=== PATIENT | female | born 1945 | race Caucasian/White ===

== ENCOUNTER 2018-11-28 23:16 | Inpatient (IN) | payer MEDICARE, BC ==
[~2018-11-28] VITALS: Ht 160 cm; Wt 74.0 kg
[~2018-11-28 23:16] MED LIST: AZIT1PAC PO; ROPI1TAB PO; TRAZ150T49 PO
[2018-11-28 23:42] LABS: BASO # 0.1 x10^3/uL (0.0-0.2); BASO % 1 % (0-3); EOS # 0.4 x10^3/uL (0.0-0.7); EOS % 3 % (0-3); HEMATOCRIT 46.8 % (36.0-47.0); HEMOGLOBIN 15.1 g/dL (12.0-15.5); LYMPH # 3.6 x10^3/uL (1.0-4.8); LYMPH % 32 % (24-48); MEAN CORPUSCULAR HEMOGLOBIN 27 pg (25-35); MEAN CORPUSCULAR HGB CONC 32 g/dL (31-37); MEAN CORPUSCULAR VOLUME 83 fL (79-100); MONO # 0.9 x10^3/uL (0.0-1.1); MONO % 8 % (0-9); NEUT # 6.1 x10^3uL (1.8-7.7); NEUT % 55 % (31-73); PLATELET COUNT 267 x10^3/uL (140-400); RED BLOOD COUNT 5.62 x10^6/uL (3.50-5.40); RED CELL DISTRIBUTION WIDTH 16.3 % (11.5-14.5)
[2018-11-28] MEDS ORDERED: NITROGLYCERIN SUBLINGUAL 0.4 MG BOTTLE OF 25. SL PRN (23:45)
[2018-11-28 23:51] LABS: CALCIUM 9.6 mg/dL (8.5-10.1); CREATININE 0.8 mg/dL (0.6-1.0); GFR 70.7; POTASSIUM 3.1 mmol/L (3.5-5.1)
[2018-11-28 23:57] LABS: ALBUMIN 3.3 g/dL (3.4-5.0); ALBUMIN/GLOBULIN RATIO 0.8 (1.0-1.7); MAGNESIUM 1.8 mg/dL (1.8-2.4); TOTAL BILIRUBIN 0.3 mg/dL (0.2-1.0); TOTAL PROTEIN 7.4 g/dL (6.4-8.2)
[2018-11-29] VITALS (20 sets, daily range): BP systolic 116–193; BP diastolic 75–118
[2018-11-29] MEDS ORDERED: ASPIRIN CHEWABLE 81 MG TABLET. PO ONE
[2018-11-29] MEDS ORDERED: ONDANSETRON PF 4 MG/2 ML VIAL. IV ONE
--- NOTE | 2018-11-29 00:47 | PHYS DOC ---
Past Medical History Past Medical History: Asthma, Bronchitis, COPD, Diabetes-Type II, GERD, High Cholesterol, Hypertension, OR, Pneumonia Additional Past Medical Histor: 6 CARDIAC STENTS Past Surgical History: Hysterectomy, Knee Replacement Additional Past Surgical Histo: RIGHT KNEE REPLACED, LEFT SHOULDER KAYA, LEFT ROTATOR CUFF Additional Information: 1.5 PPD Alcohol Use: None Drug Use: None Adult General Chief Complaint Chief Complaint: CHEST PAIN HPI HPI Patient is a 73-year-old female who presents with 2 day history of left-sided chest pain. Patient states that at times it radiates to her left shoulder. She describes pain as a lot of pressure and tightness. She rates pain at a 9 out of 10 currently. She states that she has been nauseated but has not vomited. She denies any diaphoresis. Patient states the pain is worsened with exertion. She states that onset of pain was at rest. Patient does have significant cardiac history with history of 5 stents. Review of Systems Review of Systems Constitutional: Denies fever or chills [] Respiratory: Denies cough or shortness of breath [] Cardiovascular: No additional information not addressed in HPI [] GI: Denies abdominal pain. Positive nausea with no vomiting. [] Neurologic: Denies headache, focal weakness or sensory changes [] All other systems were reviewed and found to be within normal limits, except as documented in this note. Current Medications Current Medications Current Medications Medications (Trade) Dose Ordered Sig/Anna Start Time Stop Time Status Last Admin Dose Admin Aspirin (Children'S Aspirin) 324 mg 1X ONCE 11/29/18 00:00 11/29/18 00:01 DC 11/28/18 23:46 324 MG Morphine Sulfate (Morphine Sulfate) 2 mg 1X ONCE 11/29/18 00:45 11/29/18 00:46 UNV Nitroglycerin (Nitrostat) 0.4 mg PRN Q5MIN PRN 11/28/18 23:45 11/29/18 23:44 11/28/18 23:47 0.4 MG Ondansetron HCl (Zofran) 4 mg 1X ONCE 11/29/18 00:00 11/29/18 00:01 DC 11/28/18 23:47 4 MG Potassium Chloride (Klor-Con) 40 meq 1X ONCE 11/29/18 01:00 11/29/18 01:01 11/29/18 00:25 40 MEQ Sodium Chloride 1,000 ml @ 100 mls/hr Q10H 11/29/18 00:00 11/29/18 09:59 11/28/18 23:48 100 MLS/HR Allergies Allergies Allergies Coded Allergies Type Severity Reaction Last Updated Verified amlodipine Allergy Unknown Swelling 10/16/17 Yes ezetimibe Allergy Unknown 10/16/17 Yes Lqryntt-Lkd-Uvd Reductase Inhibitor Adverse Reaction Intermediate CRAMPS Yes Physical Exam Physical Exam Constitutional: Well developed, well nourished, no acute distress, non-toxic appearance. [] HENT: Normocephalic, atraumatic, bilateral external ears normal, oropharynx moist, no oral exudates, nose normal. [] Eyes: PERRLA, EOMI, conjunctiva normal, no discharge. [] Neck: Normal range of motion, no tenderness, supple, no stridor. [] Cardiovascular:Heart rate regular rhythm, no murmur [] Lungs & Thorax: Bilateral breath sounds clear to auscultation [] Abdomen: Bowel sounds normal, soft, no tenderness. [] Skin: Warm, dry, no erythema, no rash. [] Extremities: No tenderness, no cyanosis, no clubbing, ROM intact, no edema. [] Neurologic: Alert and oriented X 3, no focal deficits noted. [] Current Patient Data Vital Signs Vital Signs Date Time Temp Pulse Resp B/P (MAP) Pulse Ox O2 Delivery O2 Flow Rate FiO2 11/28/18 23:48 23 95 Room Air 11/28/18 23:47 85 205/117 11/28/18 23:24 98.1 98.1 Lab Values Laboratory Tests Test 11/28/18 23:35 White Blood Count 11.0 x10^3/uL (4.0-11.0) Red Blood Count 5.62 x10^6/uL (3.50-5.40) H Hemoglobin 15.1 g/dL (12.0-15.5) Hematocrit 46.8 % (36.0-47.0) Mean Corpuscular Volume 83 fL (79-100) Mean Corpuscular Hemoglobin 27 pg (25-35) Mean Corpuscular Hemoglobin Concent 32 g/dL (31-37) Red Cell Distribution Width 16.3 % (11.5-14.5) H Platelet Count 267 x10^3/uL (140-400) Neutrophils (%) (Auto) 55 % (31-73) Lymphocytes (%) (Auto) 32 % (24-48) Monocytes (%) (Auto) 8 % (0-9) Eosinophils (%) (Auto) 3 % (0-3) Basophils (%) (Auto) 1 % (0-3) Neutrophils # (Auto) 6.1 x10^3uL (1.8-7.7) Lymphocytes # (Auto) 3.6 x10^3/uL (1.0-4.8) Monocytes # (Auto) 0.9 x10^3/uL (0.0-1.1) Eosinophils # (Auto) 0.4 x10^3/uL (0.0-0.7) Basophils # (Auto) 0.1 x10^3/uL (0.0-0.2) Sodium Level 141 mmol/L (136-145) Potassium Level 3.1 mmol/L (3.5-5.1) L Chloride Level 100 mmol/L (98-107) Carbon Dioxide Level 37 mmol/L (21-32) H Anion Gap 4 (6-14) L Blood Urea Nitrogen 14 mg/dL (7-20) Creatinine 0.8 mg/dL (0.6-1.0) Estimated GFR (Cockcroft-Gault) 70.7 BUN/Creatinine Ratio 18 (6-20) Glucose Level 111 mg/dL (70-99) H Calcium Level 9.6 mg/dL (8.5-10.1) Magnesium Level 1.8 mg/dL (1.8-2.4) Total Bilirubin 0.3 mg/dL (0.2-1.0) Aspartate Amino Transferase (AST) 13 U/L (15-37) L Alanine Aminotransferase (ALT) 16 U/L (14-59) Alkaline Phosphatase 101 U/L (46-116) Troponin I Quantitative 0.088 ng/mL (0.000-0.055) Total Protein 7.4 g/dL (6.4-8.2) Albumin 3.3 g/dL (3.4-5.0) L Albumin/Globulin Ratio 0.8 (1.0-1.7) L Laboratory Tests 11/28/18 23:35 Laboratory Tests 11/28/18 23:35 EKG EKG [] Interpretation Time: EKG demonstrates sinus rhythm with rate of 81. There are PVCs. There is some ST depression in leads V3 through V5. Radiology/Procedures Radiology/Procedures [] Impressions: Chest x-ray demonstrates no acute process. Course & Med Decision Making Course & Med Decision Making Pertinent Labs and Imaging studies reviewed. (See chart for details) [] Dragon Disclaimer Dragon Disclaimer This electronic medical record was generated, in whole or in part, using a voice recognition dictation system. Departure Departure Impression: Primary Impression: Non-STEMI (non-ST elevated myocardial infarction) Disposition: ADMITTED INPATIENT Admitting Physician: Chandana Madden Condition: IMPROVED Referrals: HAROON ERNANDEZ MD (PCP) LOY MARTINEZ Jr. DO Nov 29, 2018 00:47
[2018-11-29] MEDS ORDERED: CYCL5TAB PO (00:50)
[2018-11-29] MEDS ORDERED: POTASSIUM CHLORIDE 20 MEQ TABLET.ER. PO ONE (01:00)
[2018-11-29] MEDS: IV NORMAL SALINE 1000ML BAG 1,000 ML IV SCH ×2 (01:00→12:23)
[2018-11-29] MEDS ORDERED: MORPHINE SULFATE 2 MG/ML VIAL. IV ONE ×2 (01:00)
[2018-11-29] MEDS ORDERED: ONDANSETRON PF 4 MG/2 ML VIAL. IV PRN (01:00)
[2018-11-29] MEDS: HEPARIN 25,000UTS/500ML PREMIX 500 ML IV PRN ×3 (01:21→20:31)
[2018-11-29] MEDS ORDERED: HEPARIN for IV BOLUS 10,000 UNIT/10 ML VIAL. IV ONE (01:30)
[2018-11-29] MEDS ORDERED: cloNIDine HCL 0.1 MG TABLET PO ONE (01:30)
[2018-11-29] MEDS: MORPHINE SULFATE 2 MG/ML VIAL. IV PRN ×3 (02:28→23:01)
--- NOTE | 2018-11-29 02:30 | NUR ---
Patient admitted from ED with complaints of chest pain. Pt was noted to have NSTEMI. SR with occasional PVC. Heparin gtt 12u/kg/hr=17ml/hr. On admission troponin 0.088 K= 3.1 replaced with 40meq K+ in ED. Upon arrival pt complained of midsternal chest pain that was relieved with 2mg IV morphine. RN will continue to monitor
--- NOTE | 2018-11-29 05:09 | EKG ---
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
--- NOTE | 2018-11-29 07:57 | PDOC1 ---
History and Physical Date of Admission Date of Admission DATE: 11/29/18 TIME: 07:54 Identification/Chief Complaint Chief Complaint Chest pain Source Source: Patient History of Present Illness History of Present Illness Patient is a 73-year-old female w/PMHx smoker (quit), Coronary artery disease, status post multiple stents, most recently approximately 4 years ago, Hypertension, Diabetes, Dyslipidemia who presents with 2 day history of left- sided chest pain. Patient states that at times it radiates to her left shoulder. She describes pain as a lot of pressure and tightness. She rates pain at a 9 out of 10 currently. She states that she has been nauseated but has not vomited. She denies any diaphoresis. Patient states the pain is worsened with exertion. She states that onset of pain was at rest. Patient does have significant cardiac history with history of 5 stents. Troponin elevated from 0.08 to 11 overnight. She did start smoking again after quitting with chantix and has not been taking ASA or plavix Past Medical History Cardiovascular: CAD, HTN Pulmonary: No pertinent hx GI: No pertinent hx Heme/Onc: No pertinent hx Hepatobiliary: No pertinent hx Psych: No pertinent hx Rheumatologic: No pertinent hx Infectious disease: No pertinent hx ENT: No pertinent hx Renal/: No pertinent hx Endocrine: Diabetes Past Surgical History Past Surgical History: Other (Arthroscopy (RTC repair), Total knee replacement (right), Other (PCI/stents)) Family History Family History: Coronary Artery Disease, Diabetes, High Cholestrol, Hypertension Social History Smoke: 1 pack per day ALCOHOL: none Drugs: None Current Problem List Problem List Problems Medical Problems: (1) Non-STEMI (non-ST elevated myocardial infarction) Status: Acute Current Medications Current Medications Current Medications Aspirin (Children'S Aspirin) 324 mg 1X ONCE PO Last administered on 11/28/18at 23:46; Start 11/29/18 at 00:00; Stop 11/29/18 at 00:01; Status DC Nitroglycerin (Nitrostat) 0.4 mg PRN Q5MIN PRN SL CP RATING > 1/10 Last administered on 11/28/18at 23:47; Start 11/28/18 at 23:45; Stop 11/29/18 at 23:44 Morphine Sulfate (Morphine Sulfate) 2 mg 1X ONCE IV Last administered on at 23:48; Start 11/29/18 at 00:00; Stop 11/29/18 at 00:01; Status DC Sodium Chloride 1,000 ml @ 100 mls/hr Q10H IV Last administered on 11/28/18at 23:48; Start 11/29/18 at 00:00; Stop 11/29/18 at 09:59 Ondansetron HCl (Zofran) 4 mg 1X ONCE IV Last administered on 11/28/18at 23:47 ; Start 11/29/18 at 00:00; Stop 11/29/18 at 00:01; Status DC Potassium Chloride (Klor-Con) 40 meq 1X ONCE PO Last administered on at 00:25; Start 11/29/18 at 01:00; Stop 11/29/18 at 01:01; Status DC Morphine Sulfate (Morphine Sulfate) 2 mg 1X ONCE IV Last administered on at 01:17; Start 11/29/18 at 01:00; Stop 11/29/18 at 01:01; Status DC Ondansetron HCl (Zofran) 4 mg PRN Q8HRS PRN IV NAUSEA/VOMITING 1ST CHOICE; Start 11/29/18 at 01:00; Stop 11/30/18 at 00:59 Morphine Sulfate (Morphine Sulfate) 2 mg PRN Q2HR PRN IV SEVERE PAIN Last administered on 11/29/18at 07:11; Start 11/29/18 at 01:00; Stop 11/30/18 at 00:59 Sodium Chloride 1,000 ml @ 125 mls/hr Q8H IV ; Start 11/29/18 at 01:00; Stop at 00:59 Clonidine HCl (Catapres) 0.2 mg 1X ONCE PO Last administered on 11/29/18at 01: 18; Start 11/29/18 at 01:30; Stop 11/29/18 at 01:31; Status DC Heparin Sodium (Porcine) (Heparin Sodium) 4,000 unit 1X ONCE IV Last administered on 11/29/18at 01:20; Start 11/29/18 at 01:30; Stop 11/29/18 at 01:31 ; Status DC Heparin Sodium/ Dextrose 500 ml @ 0 mls/hr CONT PRN IV SEE I/O RECORD Last administered on 11/29/18at 01:21; Start 11/29/18 at 01:00 Heparin Sodium (Porcine) (Heparin Sodium) 1,800 unit PRN Q6HRS PRN IV FOR UFH LEVEL LESS THAN 0.2; Start 11/29/18 at 01:00 Active Scripts Active Reported Cyclobenzaprine Hcl 5 Mg Tablet 5 Mg PO TID Trazodone Hcl 150 Mg Tablet 1 Tab PO QHS Requip (Ropinirole Hcl) 1 Mg Tablet 1 Tab PO QHS Allergies Allergies: Coded Allergies: amlodipine (Verified Allergy, Severe, Swelling, 11/29/18) ezetimibe (Verified Allergy, Intermediate, 11/29/18) MYALGIA Wmwrbzp-Bgr-Juj Reductase Inhibitor (Verified Adverse Reaction, Intermediate, CRAMPS, 10/16/17) ROS General: YES: Fatigue, Malaise; No: Chills, Night Sweats, Appetite, Other PSYCHOLOGICAL ROS: No: Anxiety, Behavioral Disorder, Concentration difficultie , Decreased libido, Depression, Disorientation, Hallucinations, Hostility, Irritablity, Memory difficulties, Mood Swings, Obsessive thoughts, Physical abuse, Sexual abuse, Sleep disturbances, Suicidal ideation, Other Eyes: No Blurry vision, No Decreased vision, No Double vision, No Dry eyes, No Excessive tearing, No Eye Pain, No Itchy Eyes, No Loss of vision, No Photophobia , No Scotomata, No Uses contacts, No Uses glasses, No Other HEENT: No: Heacaches, Visual Changes, Hearing change, Nasal congestion, Nasal discharge, Oral lesions, Sinus pain, Sore Throat, Epistaxis, Sneezing, Snoring, Tinnitus, Vertigo, Vocal changes, Other ALLERGY AND IMMUNOLOGY: No: Hives, Insect Bite Sensitivity, Itchy/Watery Eyes, Nasal Congestion, Post Nasal Drip, Seasonal Allergies, Other Hematological and Lymphatic: No: Bleeding Problems, Blood Clots, Blood Transfusions, Brusing, Night Sweats, Pallor, Swollen Lymph Nodes, Other ENDOCRINE: No: Breast Changes, Galactorrhea, Hair Pattern Changes, Hot Flashes , Malaise/lethargy, Mood Swings, Palpitations, Polydipsia/polyuria, Skin Changes , Temperature Intolerance, Unexpected Weight Changes, Other Breast: No New/Changing Breast Lumps, No Nipple changes, No Nipple discharge, No Other Respiratory: YES: Shortness of breath, SOB with excertion, Wheezing; No: Cough, Hemoptysis, Orthopnea, Pleuritic Pain, Sputum Changes, Stridor, Tachypnea, Other Cardiovascular: yes Chest Pain, yes Palpitations; No Orthopnea, No Paroxysmal Noc. Dyspnea, No Edema, No Lt Headedness, No Other Gastrointestinal: Yes Nausea; No Vomiting, No Abdominal Pain, No Diarrhea, No Constipation, No Melena, No Hematochezia, No Other Genitourinary: No Dysuria, No Frequency, No Incontinence, No Hematuria, No Retention, No Discharge, No Urgency, No Pain, No Flank Pain, No Other, No , No , No , No , No , No , No Musculoskeletal: No Gait Disturbance, No Joint Pain, No Joint Stiffness, No Joint Swelling, No Muscle Pain, No Muscular Weakness, No Pain In:, No Swelling In:, No Other Neurological: No Behavorial Changes, No Bowel/Bladder ControlChng, No Confusion , No Dizziness, No Gait Disturbance, No Headaches, No Impaired Coord/balance, No Memory Loss, No Numbness/Tingling, No Seizures, No Speech Problems, No Tremors, No Visual Changes, No Weakness, No Other Skin: No Dry Skin, No Eczema, No Hair Changes, No Lumps, No Mole Changes, No Mottling, No Nail Changes, No Pruritus, No Rash, No Skin Lesion Changes, No Other, No Acne Physical Exam General: Alert, Oriented X3, Cooperative, No acute distress HEENT: Atraumatic, PERRLA, EOMI, Mucous membr. moist/pink Lungs: Clear to auscultation, Normal air movement Heart: S1S2, RRR, no gallops, no murmurs Abdomen: Normal bowel sounds, Soft, No tenderness, No hepatosplenomegaly, No masses Extremities: No clubbing, No cyanosis, No edema, Normal pulses, No tenderness/ swelling Skin: No rashes, No breakdown, No significant lesion Neuro: Normal gait, Normal speech, Strength at 5/5 X4 ext, Normal tone, Sensation intact, Cranial nerves 3-12 NL, Reflexes 2+ Psych/Mental Status: Mental status NL, Mood NL Vitals Vitals Vital Signs Date Time Temp Pulse Resp B/P (MAP) Pulse Ox O2 Delivery O2 Flow Rate FiO2 11/29/18 07:49 97.4 64 17 142/91 (108) 96 Nasal Cannula 2.0 97.4 Labs Labs Laboratory Tests Test 11/28/18 23:35 11/29/18 03:45 11/29/18 06:50 White Blood Count 11.0 x10^3/uL (4.0-11.0) Red Blood Count 5.62 x10^6/uL (3.50-5.40) Hemoglobin 15.1 g/dL (12.0-15.5) Hematocrit 46.8 % (36.0-47.0) Mean Corpuscular Volume 83 fL (79-100) Mean Corpuscular Hemoglobin 27 pg (25-35) Mean Corpuscular Hemoglobin Concent 32 g/dL (31-37) Red Cell Distribution Width 16.3 % (11.5-14.5) Platelet Count 267 x10^3/uL (140-400) Neutrophils (%) (Auto) 55 % (31-73) Lymphocytes (%) (Auto) 32 % (24-48) Monocytes (%) (Auto) 8 % (0-9) Eosinophils (%) (Auto) 3 % (0-3) Basophils (%) (Auto) 1 % (0-3) Neutrophils # (Auto) 6.1 x10^3uL (1.8-7.7) Lymphocytes # (Auto) 3.6 x10^3/uL (1.0-4.8) Monocytes # (Auto) 0.9 x10^3/uL (0.0-1.1) Eosinophils # (Auto) 0.4 x10^3/uL (0.0-0.7) Basophils # (Auto) 0.1 x10^3/uL (0.0-0.2) D-Dimer (Mar[place]ell) 0.76 ug/mlFEU (0.00-0.50) Sodium Level 141 mmol/L (136-145) Potassium Level 3.1 mmol/L (3.5-5.1) Chloride Level 100 mmol/L (98-107) Carbon Dioxide Level 37 mmol/L (21-32) Anion Gap 4 (6-14) Blood Urea Nitrogen 14 mg/dL (7-20) Creatinine 0.8 mg/dL (0.6-1.0) Estimated GFR (Cockcroft-Gault) 70.7 BUN/Creatinine Ratio 18 (6-20) Glucose Level 111 mg/dL (70-99) Calcium Level 9.6 mg/dL (8.5-10.1) Magnesium Level 1.8 mg/dL (1.8-2.4) Total Bilirubin 0.3 mg/dL (0.2-1.0) Aspartate Amino Transf (AST/SGOT) 13 U/L (15-37) Alanine Aminotransferase (ALT/SGPT) 16 U/L (14-59) Alkaline Phosphatase 101 U/L (46-116) Troponin I Quantitative 0.088 ng/mL (0.000-0.055) 4.331 ng/mL (0.000-0.055) 11.703 ng/mL (0.000-0.055) Total Protein 7.4 g/dL (6.4-8.2) Albumin 3.3 g/dL (3.4-5.0) Albumin/Globulin Ratio 0.8 (1.0-1.7) Laboratory Tests Test 11/28/18 23:35 11/29/18 03:45 11/29/18 06:50 White Blood Count 11.0 x10^3/uL (4.0-11.0) Red Blood Count 5.62 x10^6/uL (3.50-5.40) Hemoglobin 15.1 g/dL (12.0-15.5) Hematocrit 46.8 % (36.0-47.0) Mean Corpuscular Volume 83 fL (79-100) Mean Corpuscular Hemoglobin 27 pg (25-35) Mean Corpuscular Hemoglobin Concent 32 g/dL (31-37) Red Cell Distribution Width 16.3 % (11.5-14.5) Platelet Count 267 x10^3/uL (140-400) Neutrophils (%) (Auto) 55 % (31-73) Lymphocytes (%) (Auto) 32 % (24-48) Monocytes (%) (Auto) 8 % (0-9) Eosinophils (%) (Auto) 3 % (0-3) Basophils (%) (Auto) 1 % (0-3) Neutrophils # (Auto) 6.1 x10^3uL (1.8-7.7) Lymphocytes # (Auto) 3.6 x10^3/uL (1.0-4.8) Monocytes # (Auto) 0.9 x10^3/uL (0.0-1.1) Eosinophils # (Auto) 0.4 x10^3/uL (0.0-0.7) Basophils # (Auto) 0.1 x10^3/uL (0.0-0.2) D-Dimer (Maribell) 0.76 ug/mlFEU (0.00-0.50) Sodium Level 141 mmol/L (136-145) Potassium Level 3.1 mmol/L (3.5-5.1) Chloride Level 100 mmol/L (98-107) Carbon Dioxide Level 37 mmol/L (21-32) Anion Gap 4 (6-14) Blood Urea Nitrogen 14 mg/dL (7-20) Creatinine 0.8 mg/dL (0.6-1.0) Estimated GFR (Cockcroft-Gault) 70.7 BUN/Creatinine Ratio 18 (6-20) Glucose Level 111 mg/dL (70-99) Calcium Level 9.6 mg/dL (8.5-10.1) Magnesium Level 1.8 mg/dL (1.8-2.4) Total Bilirubin 0.3 mg/dL (0.2-1.0) Aspartate Amino Transf (AST/SGOT) 13 U/L (15-37) Alanine Aminotransferase (ALT/SGPT) 16 U/L (14-59) Alkaline Phosphatase 101 U/L (46-116) Troponin I Quantitative 0.088 ng/mL (0.000-0.055) 4.331 ng/mL (0.000-0.055) 11.703 ng/mL (0.000-0.055) Total Protein 7.4 g/dL (6.4-8.2) Albumin 3.3 g/dL (3.4-5.0) Albumin/Globulin Ratio 0.8 (1.0-1.7) Images Images CXR - Portable frontal view of the chest was obtained with the patient upright. Heart size and pulmonary vasculature are normal. No infiltrate or pleural effusion. Subtle nonspecific interstitial thickening of the lung menard noted but probably is chronic. Old left lateral upper rib fractures present. Plate and associated screws involving the visualized left humerus. 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 RASHEED WONG MD Nov 29, 2018 07:57
[2018-11-29] MEDS ORDERED: DEXTROSE 50% 25 GM / 50ML DISP.SYRIN. IV PRN (08:00)
--- NOTE | 2018-11-29 08:15 | EKG ---
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
[2018-11-29] MEDS ORDERED: MIDAZOLAM HCL/PF 5 MG/5 ML VIAL. ONE (08:28)
[2018-11-29] MEDS ORDERED: fentaNYL PF VIAL 100 MCG/2 ML VIAL ONE (08:28)
[2018-11-29] MEDS ORDERED: ANTI-COAG MONITOR BY PHARMACY. MC PRN (08:30)
[2018-11-29] MEDS ORDERED: MAGNESIUM SULFATE 2GM 50 ML IV ONE (08:30)
--- NOTE | 2018-11-29 08:34 | RAD ---
Examination: PORTABLE CHEST 1V History: CHEST PAIN Comparison/Correlation: None Findings: Portable frontal view of the chest was obtained with the patient upright. Heart size and pulmonary vasculature are normal. No infiltrate or pleural effusion. Subtle nonspecific interstitial thickening of the lung menard noted but probably is chronic. Old left lateral upper rib fractures present. Plate and associated screws involving the visualized left humerus. Impression: No infiltrate. Electronically signed by: Uri Kendrick MD (11/29/2018 8:31 AM) [id number]
[2018-11-29] MEDS ORDERED: MIDAZOLAM HCL/PF 5 MG/5 ML VIAL. IV ONE (08:45)
[2018-11-29] MEDS ORDERED: LIDOCAINE 1% Multi-Dose 20 ML VIAL. INJ ONE (08:45)
[2018-11-29] MEDS ORDERED: IOHEXOL 300 MG/ML 100ML VIAL. IART ONE (08:45)
[2018-11-29] MEDS ORDERED: fentaNYL PF VIAL 100 MCG/2 ML VIAL IV ONE (08:45)
[2018-11-29 08:53] LABS: CALCIUM 8.5 mg/dL (8.5-10.1); CREATININE 0.7 mg/dL (0.6-1.0); GFR 82.5; MAGNESIUM 1.6 mg/dL (1.8-2.4); POTASSIUM 3.7 mmol/L (3.5-5.1)
--- NOTE | 2018-11-29 09:01 | PDOC ---
MODERATE SEDATION ASSESSMENT RISKS/ALTERNATIVES Risks/Alternatives Risks and alternatives of this type of sedation and procedure discussed with: RISK/ALTERNATIVES: Patient H & P ON CHART H & P H & P on chart and reviewed for co-morbid conditions and appropriate labs. H&P ON CHART: Yes STATUS PREG STATUS ASSESSED: Yes MEDS/ALLERGIES REVIEWED Meds/Allergies Reviewed Medications and Allergies including time and route of recently administered narcotics and sedatives. MEDS/ALLERGIES REVIEWED: Yes ASA RATING ASA RATING: II AIRWAY ASSESSMENT Airway Assessment Airway patency, oral function limitations, presence of caps, crowns, dentures, partials, and ability to extend neck assessed. AIRWAY ASSESSMENT: Yes MALLAMPATI SCORE MALLAMPATI SCORE: II PRE-SEDATION ASSESSMENT PRE-SEDATION ASSESSMENT: Yes ALCON VICTORIA MD Nov 29, 2018 09:01
--- NOTE | 2018-11-29 09:05 | PDOC2 ---
SHAISTA MOLINA PHYS ASSISTANT 11/29/18 0905: CARDIAC CONSULT DATE OF CONSULT Date of Consult DATE: 11/29/18 TIME: 08:49 REASON FOR CONSULT Reason for Consult: Chest pain REFERRING PHYSICIAN Referring Physician: Rikki SOURCE Source: Chart review, Patient HISTORY OF PRESENT ILLNESS HISTORY OF PRESENT ILLNESS This is a 73 yo female admitted for complains of chest pain. This is pressure radiating to left shoulder with tightness as well. Started about 2 days ago associated with nausea and could not take a deep breath due to the pain. Positive for past CAD with stents. Apparently she missed her appointments in the office due to family issues. No falls or any recent injury. PAST MEDICAL HISTORY Cardiovascular: CAD, HTN, Hyperlipidemia Endocrine: Diabetes (2) PAST SURGICAL HISTORY Past Surgical History: Arthroscopy (RTC repair), Total knee replacement (right) , Other (PCI/stents) SOCIAL HISTORY Smoke: Quit ALCOHOL: none Drugs: None Lives: with Family CURRENT MEDICATIONS CURRENT MEDICATIONS Current Medications Medications (Trade) Dose Ordered Sig/Anna Route PRN Reason Start Time Stop Time Status Last Admin Dose Admin Aspirin (Children'S Aspirin) 324 mg 1X ONCE PO 11/29/18 00:00 11/29/18 00:01 DC 11/28/18 23:46 Nitroglycerin (Nitrostat) 0.4 mg PRN Q5MIN PRN SL CP RATING > 1/10 11/28/18 23:45 11/29/18 23:44 11/28/18 23:47 Morphine Sulfate (Morphine Sulfate) 2 mg 1X ONCE IV 11/29/18 00:00 11/29/18 00:01 DC 11/28/18 23:48 Sodium Chloride 1,000 ml @ 100 mls/hr Q10H IV 11/29/18 00:00 11/29/18 09:59 11/28/18 23:48 Ondansetron HCl (Zofran) 4 mg 1X ONCE IV 11/29/18 00:00 11/29/18 00:01 DC 11/28/18 23:47 Potassium Chloride (Klor-Con) 40 meq 1X ONCE PO 11/29/18 01:00 11/29/18 01:01 DC 11/29/18 00:25 Morphine Sulfate (Morphine Sulfate) 2 mg 1X ONCE IV 11/29/18 01:00 11/29/18 01:01 DC 11/29/18 01:17 Morphine Sulfate (Morphine Sulfate) 2 mg PRN Q2HR PRN IV SEVERE PAIN 11/29/18 01:00 11/30/18 00:59 11/29/18 07:11 Clonidine HCl (Catapres) 0.2 mg 1X ONCE PO 11/29/18 01:30 11/29/18 01:31 DC 11/29/18 01:18 Heparin Sodium (Porcine) (Heparin Sodium) 4,000 unit 1X ONCE IV 11/29/18 01:30 11/29/18 01:31 DC 11/29/18 01:20 Heparin Sodium/ Dextrose 500 ml @ 0 mls/hr CONT PRN IV SEE I/O RECORD 11/29/18 01:00 11/29/18 01:21 ALLERGIES ALLERGIES: Coded Allergies: amlodipine (Verified Allergy, Severe, Swelling, 11/29/18) ezetimibe (Verified Allergy, Intermediate, 11/29/18) MYALGIA Ufyroif-Nnb-Avl Reductase Inhibitor (Verified Adverse Reaction, Intermediate, CRAMPS, 10/16/17) ROS Review of System see HPI PHYSICAL EXAM General: Alert, Oriented X3, Cooperative, No acute distress HEENT: Atraumatic, Mucous membr. moist/pink Lungs: Clear to auscultation, Normal air movement Heart: Regular rate (SR) Abdomen: No tenderness Extremities: No cyanosis Skin: No breakdown, No significant lesion Neuro: Normal speech, Sensation intact Psych/Mental Status: Mental status NL, Mood NL MUSCULOSKELETAL: Osteoarthritic changes both hands VITALS VITALS Vital Signs Date Time Temp Pulse Resp B/P (MAP) Pulse Ox O2 Delivery O2 Flow Rate FiO2 11/29/18 08:09 96 Nasal Cannula 2.0 11/29/18 07:49 97.4 64 17 142/91 (108) 97.4 LABS Lab: Laboratory Tests Test 11/28/18 23:35 11/29/18 03:45 11/29/18 06:50 11/29/18 08:07 White Blood Count 11.0 x10^3/uL (4.0-11.0) Red Blood Count 5.62 x10^6/uL (3.50-5.40) Hemoglobin 15.1 g/dL (12.0-15.5) Hematocrit 46.8 % (36.0-47.0) Mean Corpuscular Volume 83 fL (79-100) Mean Corpuscular Hemoglobin 27 pg (25-35) Mean Corpuscular Hemoglobin Concent 32 g/dL (31-37) Red Cell Distribution Width 16.3 % (11.5-14.5) Platelet Count 267 x10^3/uL (140-400) Neutrophils (%) (Auto) 55 % (31-73) Lymphocytes (%) (Auto) 32 % (24-48) Monocytes (%) (Auto) 8 % (0-9) Eosinophils (%) (Auto) 3 % (0-3) Basophils (%) (Auto) 1 % (0-3) Neutrophils # (Auto) 6.1 x10^3uL (1.8-7.7) Lymphocytes # (Auto) 3.6 x10^3/uL (1.0-4.8) Monocytes # (Auto) 0.9 x10^3/uL (0.0-1.1) Eosinophils # (Auto) 0.4 x10^3/uL (0.0-0.7) Basophils # (Auto) 0.1 x10^3/uL (0.0-0.2) D-Dimer (Maribell) 0.76 ug/mlFEU (0.00-0.50) Sodium Level 141 mmol/L (136-145) Potassium Level 3.1 mmol/L (3.5-5.1) Chloride Level 100 mmol/L (98-107) Carbon Dioxide Level 37 mmol/L (21-32) Anion Gap 4 (6-14) Blood Urea Nitrogen 14 mg/dL (7-20) Creatinine 0.8 mg/dL (0.6-1.0) Estimated GFR (Cockcroft-Gault) 70.7 BUN/Creatinine Ratio 18 (6-20) Glucose Level 111 mg/dL (70-99) Calcium Level 9.6 mg/dL (8.5-10.1) Magnesium Level 1.8 mg/dL (1.8-2.4) Total Bilirubin 0.3 mg/dL (0.2-1.0) Aspartate Amino Transf (AST/SGOT) 13 U/L (15-37) Alanine Aminotransferase (ALT/SGPT) 16 U/L (14-59) Alkaline Phosphatase 101 U/L (46-116) Troponin I Quantitative 0.088 ng/mL (0.000-0.055) 4.331 ng/mL (0.000-0.055) 11.703 ng/mL (0.000-0.055) Total Protein 7.4 g/dL (6.4-8.2) Albumin 3.3 g/dL (3.4-5.0) Albumin/Globulin Ratio 0.8 (1.0-1.7) Glucose (Fingerstick) 111 mg/dL (70-99) ASSESSMENT/PLAN ASSESSMENT/PLAN 1. NSTEMI/ACS 2. Malignant HTN; better 3. CAD: stents in the past 4. Hx of Myopathy with several statins in the past 5. Past Tobaccoism Recommendations 1. TTE, lipids 2. LHC today, risks and benefits discussed agreeable to proceed. 3. BMP and Mg. 4. Restart home BP meds post LHC 5. ASA, heparin 6. PCSK9 inhibitor as an outpt 7. discussed compliance as she has been skipping some of her meds. Hold metformin. VIRGINIA SINGH MD 11/29/18 1815: CARDIAC CONSULT ASSESSMENT/PLAN ASSESSMENT/PLAN Pt. seen and examined. Agree with above MOVIE ACTOR note. She has hypertensive heart disease with severely tortuous vessels. Her symptoms have improved. Trend troponin given that she had angioplasty only Repeat EKG in a.m. EKG after the laborer concrete paving with residual lateral ischemia (mild) Continue yuliana-inh. Patient is not interested in statin. May consider long acting nitrate therapy prn. Thanks SHAISTA MOLINA PHYS ASSISTANT Nov 29, 2018 09:05 VIRGINIA SINGH MD Nov 29, 2018 18:15
[2018-11-29 09:20] LABS: CHOLESTEROL/HDL RATIO 5.2
[2018-11-29] MEDS ORDERED: IOHEXOL 300 MG/ML 100ML VIAL. ONE ×4 (09:33→11:14)
[2018-11-29] MEDS ORDERED: BIVALIRUDIN 250 MG VIAL. IV ONE ×2 (09:44→09:47)
[2018-11-29] MEDS ORDERED: ASPIRIN 325 MG TABLET ONE (10:16)
[2018-11-29] MEDS ORDERED: CLOPIDOGREL BISULFATE 75 MG TABLET ONE (10:16)
[2018-11-29] MEDS ORDERED: NITROGLYCERIN 200 MCG/2 ML SYRINGE FOR CATH/VASC LAB. ONE (10:17)
[2018-11-29] MEDS ORDERED: CLOPIDOGREL BISULFATE 75 MG TABLET PO ONE (10:30)
[2018-11-29] MEDS ORDERED: NITROGLYCERIN 200 MCG/2 ML SYRINGE FOR CATH/VASC LAB. ICAR ONE (10:30)
[2018-11-29] MEDS ORDERED: ASPIRIN 325 MG TABLET PO ONE (10:45)
[2018-11-29] MEDS ORDERED: LIDOCAINE 1% Multi-Dose 20 ML VIAL. ONE (11:14)
--- NOTE | 2018-11-29 11:15 | NUR ---
Rec'd from labeling specialist post angioplasty circ. Rt groin site dry, soft palp distal pulse leg warm. Pt A&O. 3l n/c, SR on monitor. Daughter at bedside; had not talked with Dr Alva yet after proc. VSS. IV patent x 1 Ns infusing at 125/hr. Stated pain at 3 which is improved. Sleepy with some nausea. zofran IV given. Angiomax infused
[2018-11-29] MEDS: ANTI-COAG MONITOR BY PHARMACY. MC PRN (11:16)
[2018-11-29] MEDS ORDERED: BENZ-8 PO (11:21)
[2018-11-29] MEDS ORDERED: DOXY100C2 PO (11:21)
[2018-11-29] MEDS ORDERED: HYOS0.1265 SL (11:21)
[2018-11-29] MEDS ORDERED: HYDR25TA PO (11:21)
[2018-11-29] MEDS ORDERED: FLUO40CA2 PO (11:21)
[2018-11-29] MEDS ORDERED: POTA10TA12 PO (11:21)
[2018-11-29] MEDS ORDERED: METF500T16 PO (11:21)
[2018-11-29] MEDS ORDERED: HYDR12.575 PO (11:21)
[2018-11-29] MEDS ORDERED: ROPI0.5T PO (11:21)
[2018-11-29] MEDS ORDERED: PANT20TA2 PO (11:21)
[2018-11-29] MEDS: INSULIN LISPRO 300 UNITS/3 ML INSULN.PEN. SQ SCH ×2 (12:00→17:00)
[2018-11-29] MEDS ORDERED: IV NORMAL SALINE 1000ML BAG 1,000 ML IV SCH ×2 (12:20)
[2018-11-29] MEDS ORDERED: NITROGLYCERIN SUBLINGUAL 0.4 MG BOTTLE OF 25. SL PRN (12:30)
[2018-11-29] MEDS ORDERED: LIDOCAINE 2% 100 MG/5 ML SYRINGE. IV PRN (12:30)
[2018-11-29] MEDS ORDERED: 0.9 % SODIUM CHLORIDE 10 ML DISP.SYRIN. IV PRN (12:30)
[2018-11-29] MEDS ORDERED: AMIODARONE 150 MG in IV DEXTROSE 5% 100ML 100 ML IV PRN (12:30)
[2018-11-29] MEDS ORDERED: ATROPINE 0.5 MG/5 ML DISP.SYRINGE. IV PRN (12:30)
--- NOTE | 2018-11-29 12:43 | EKG ---
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
--- NOTE | 2018-11-29 15:46 | NUR ---
Rt groin intact after 4 hrs. Pt up in chair,visiting with dgt. Stated pain intermittent 3 better than before. VSS
--- NOTE | 2018-11-29 16:18 | NUR ---
SS following for discharge planning. SS reviewed pt chart. Pt is from home and is currently requiring oxygen. PT/OT ordered. SS will await PT/OT evaluations and recommendations and will proceed accordingly with discharge planning.
--- NOTE | 2018-11-29 16:33 | CARD ---
MR#: [id number] Date of Study: 11/29/2018 Ordering Physician: SHAISTA MOLINA, Referring Physician: JUAN J GO Tech: Marlyn Cisneros FAVIO APPROVED REPORT EXAM: Two-dimensional and M-mode echocardiogram with Doppler and color Doppler. Other Information Quality : Technically LimitedHR: 60bpm Rhythm : NSRTechnically limited study due to patient being supine post cath procedure. INDICATION Non STEMI 2D DIMENSIONS RVDd2.7 (2.9-3.5cm)Left Atrium(2D)2.9 (1.6-4.0cm) IVSd1.4 (0.7-1.1cm)Aortic Root(2D)2.8 (2.0-3.7cm) LVDd4.2 (3.9-5.9cm)LVOT Diameter2.0 (1.8-2.4cm) PWd1.1 (0.7-1.1cm)LVDs3.4 (2.5-4.0cm) FS (%) 19.8 %SV31.9 ml Aortic Valve AoV Peak Rik.110.5cm/sAoV VTI23.0cm AO Peak GR.4.9mmHgLVOT VTI 17.61cm AO Mean GR.2mmHgAVA (VMAX)2.30cm2 NISA (VTI)2.30cm2 Mitral Valve MV E Hvsxbjzj28.1cm/sMV DECEL HAUO013ra MV A Hixejgid82.4cm/sE/A Ratio0.7 MV A Eeablnkj055qb TDI Lateral E' P. V7.53cm/sMedial E' P. V7.02cm/s E/Lateral E'6.5E/Medial E'7.0 Tricuspid Valve TR P. Ieuezewa587ml/sRAP EOSRXASV5ebAk TR Peak Gr.10bqPgYOGO46wpUg LEFT VENTRICLE The left ventricle is normal size. There is mild concentric left ventricular hypertrophy. Left ventri jose ramon systolic function is mildly impaired. The Ejection Fraction is estimated at 40%. There is hypokin esis in the basalar and apical anterolateral regions. Transmitral Doppler flow pattern is Grade I-abn ormal relaxation pattern. RIGHT VENTRICLE The right ventricle is normal size. There is normal right ventricular wall thickness. The right ventr icular systolic function is normal. ATRIA The left atrium size is normal. The right atrium size is normal. The interatrial septum is intact wit h no evidence for an atrial septal defect or patent foramen ovale as noted on 2-D or Doppler imaging. AORTIC VALVE The aortic valve is calcified but opens well. The aortic valve is trileaflet. Doppler and Color Flow revealed no significant aortic regurgitation. There is no significant aortic valvular stenosis. MITRAL VALVE The mitral valve is normal in structure and function. There is no evidence of mitral valve prolapse. There is no mitral valve stenosis. Doppler and Color-flow revealed mild mitral regurgitation. TRICUSPID VALVE The tricuspid valve is normal in structure and function. Doppler and Color Flow revealed trace tricus pid regurgitation. The PA pressure was estimated at 20 mmHg. There is no tricuspid valve prolapse or vegetation. There is no tricuspid valve stenosis. PULMONIC VALVE The pulmonic valve is not well visualized. GREAT VESSELS The aortic root is normal in size. The ascending aorta is normal in size. The IVC is normal in size a nd collapses >50% with inspiration. PERICARDIAL EFFUSION There is no evidence of significant pericardial effusion. Critical Notification Critical Value: No <Conclusion> The left ventricle is normal size. Left ventricle systolic function is mildly impaired. The Ejection Fraction is estimated at 40%. There is hypokinesis in the basalar and apical anterolateral regions. There is mild concentric left ventricular hypertrophy. There is no significant aortic valvular stenosis. Doppler and Color Flow revealed no significant aortic regurgitation. Doppler and Color-flow revealed mild mitral regurgitation. Doppler and Color Flow revealed trace tricuspid regurgitation. The PA pressure was estimated at 20 mmHg. Signed by : Jaguar Alva MD Electronically Approved : 11/29/2018 16:32:33
--- NOTE | 2018-11-29 17:15 | CARD ---
MR#: [id number] Date of Study: 11/29/2018 Ordering Physician: JUAN J GO, Referring Physician: Kaylee ZAMORA: HIGINIOFINESSE OLIVEROS RTR APPROVED REPORT Procedures Left heart catheterization Left ventriculogram Selective coronary angiogram Balloon angioplasty to the left circumflex vessel Attempted stent placement to the left circumflex The patient is a 73-year-old female with a history of multiple stents. She was admitted through the e mergency room with episodes of occasional chest pain. Her troponin elevated. Cardiac catheterization was recommended. Risks and benefits of catheterization and possible intervention were discussed with the patient. She agreed to proceed. After informed consent was obtained the patient was brought to the heart catheterization lab. The are a of the right femoral artery was prepared the usual manner with Betadine, sterile draping and local anesthetic. An 18-gauge needle was used to enter the right femoral artery a wire placed and a 6 Frenc h sheath placed over the wire. Using a J-wire for exchanges, a 6 [place] JL4 diagnostic catheter was u sed to engage the left coronary artery and sequential injections in various views were obtained. A 6 [place] JR4 [place] right diagnostic catheter was used to engage the right coronary artery and sequen tial injections in various views were obtained. A pigtail catheter was advanced to the left ventricle . Pressures were obtained. A 30 TUCKER left ventricular gram was performed. Pullback pressures were tyson sured. Images were reviewed. The patient had diffuse multivessel disease. The mid left circumflex was occluded at the site of a previous stent placement. The right coronary artery had diffuse restenosis in multiple stents with the most significant lesion being in the mid vessel at approximately 90%. We proceeded to initially attempt to revascularize the left circumflex vessel. Angiomax as per protocol was given. A 6 [place] XB 3.5 and then a XB 3.0 guiding catheters were used t o engage the left system. The lesion was crossed with moderate difficulty with a Prowater wire. It wa s initially dilated with a 2.5 x 15 Trek balloon with 3 inflations, maximum pressure of 8 chi, maximu m time of 30 seconds. This restored flow. We then proceeded to attempt to place a 2.5 x 15 mm Alpine stent. However due to more proximal vessel being a heavily calcified and tortuous vessel the stent wo uld not reach the area of occlusion. A guideliner device was then used but the stent could not pass t he more proximal areas of tortuosity and calcification. A 2.25 x 8 resolute zehra stent was then attem pted to be placed and it again could not cross through the more proximal area. Therefore a new 2.5 x 15 mm Trek balloon was placed to the area of the stenosis. We performed an additional 2 inflations ma ximum pressure of 8 chi, maximum time of 60 seconds. Good distal flow was restored. There also appear ed to be more distal lesion of 60%. The same balloon was used for an additional 2 inflations at 8 at m maximum time of 60 seconds. Following this was good distal flow. After monitoring the patient for a period of time the wire and guide were removed. At this time no additional interventions were attemp tunde secondary to prolonged time in the Organ Pipe Finisher and increased contrast load. And injection of the sh eath showed normal placement. The sheath was removed and sealed with an Angio-Seal product. The patie nt was moved to the holding area. Findings. Hemodynamics. LV pressure 118/6, 18. Aortic root pressure 117/82. Coronaries. All coronaries were heavily calcified and relatively tortuous. The left main was a normal-size vessel without lesions. Left anterior descending. The LAD was a moderate size vessel. It had a proximal 35% lesion. The mid t o distal portion of the vessel was tortuous and calcified with lesions in the 40% range. Left circumflex. The left circumflex was a very tortuous and calcified vessel. Had a proximal 30% les ion. A proximal to mid lesion of 40-50% and more distal occlusion. Right coronary artery. The right coronary was a smaller nondominant vessel with extensive stenting t hroughout the vessel. There was widespread restenosis of the stents with the most significant lesion being approximately 90% in the midportion. Left ventriculogram. The left ventricle showed moderately decreased LV function. The distal septal, distal inferior and ap ical regions were severely hypokinetic. Ejection fraction was 35%. <Conclusion> Mid occlusion in the left circumflex at the site of previous stent placement. Successful opening of t his lesion and a more distal lesion with balloon angioplasty. Moderate diffuse disease in the left anterior descending as noted above. Widespread restenosis in the right coronary artery which was a relatively small vessel. Midportion wi th stenosis within the 90% range. Moderately decreased LV systolic function with an ejection fraction of 35%. Signed by : Jaguar Alva MD Electronically Approved : 11/29/2018 17:14:56
[2018-11-29] MEDS: LISINOPRIL 5 MG TABLET. PO SCH (17:57)
[2018-11-29] MEDS ORDERED: hydrALAZINE 20 MG/ML VIAL. IVP PRN (18:15)
[2018-11-29] MEDS ORDERED: HEPARIN for IV BOLUS 10,000 UNIT/10 ML VIAL. IV PRN (18:45)
[2018-11-29] MEDS: HEPARIN for IV BOLUS 10,000 UNIT/10 ML VIAL. IV PRN (20:32)
[2018-11-29] MEDS: INSULIN GLARGINE 300 UNITS/3 ML INSULN.PEN. SQ SCH (21:00)
[2018-11-29] MEDS: traZODone 100 MG TABLET. PO SCH (22:55)
[2018-11-30] VITALS (17 sets, daily range): BP systolic 119–163; BP diastolic 70–88
[2018-11-30 02:51] LABS: BASO % 0 % (0-3); EOS # 0.2 x10^3/uL (0.0-0.7); EOS % 3 % (0-3); HEMATOCRIT 40.6 % (36.0-47.0); HEMOGLOBIN 12.9 g/dL (12.0-15.5); LYMPH # 1.8 x10^3/uL (1.0-4.8); LYMPH % 22 % (24-48); MEAN CORPUSCULAR HEMOGLOBIN 27 pg (25-35); MEAN CORPUSCULAR HGB CONC 32 g/dL (31-37); MEAN CORPUSCULAR VOLUME 84 fL (79-100); MONO # 0.6 x10^3/uL (0.0-1.1); MONO % 7 % (0-9); NEUT # 5.5 x10^3uL (1.8-7.7); NEUT % 67 % (31-73); PLATELET COUNT 182 x10^3/uL (140-400); RED BLOOD COUNT 4.84 x10^6/uL (3.50-5.40); RED CELL DISTRIBUTION WIDTH 16.4 % (11.5-14.5); WHITE BLOOD COUNT 8.2 x10^3/uL (4.0-11.0)
[2018-11-30 03:01] LABS: CALCIUM 8.5 mg/dL (8.5-10.1); CREATININE 0.6 mg/dL (0.6-1.0); GFR 98.5; MAGNESIUM 2.1 mg/dL (1.8-2.4); POTASSIUM 3.8 mmol/L (3.5-5.1)
[2018-11-30] MEDS: HEPARIN for IV BOLUS 10,000 UNIT/10 ML VIAL. IV PRN (04:38)
[2018-11-30] MEDS: fentaNYL PF VIAL 100 MCG/2 ML VIAL IV PRN ×2 (06:06→21:25)
--- NOTE | 2018-11-30 06:32 | EKG ---
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
[2018-11-30] MEDS: INSULIN LISPRO 300 UNITS/3 ML INSULN.PEN. SQ SCH ×3 (08:00→17:00)
[2018-11-30] MEDS: CLOPIDOGREL BISULFATE 75 MG TABLET PO SCH (08:25)
[2018-11-30] MEDS: ASPIRIN ENTERIC COATED 325 MG TABLET.DR. PO SCH (08:25)
[2018-11-30] MEDS: LISINOPRIL 5 MG TABLET. PO SCH (08:27)
--- NOTE | 2018-11-30 08:33 | PDOC ---
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 Patient states that at times it radiates to her left shoulder. She describes pain as a lot of pressure and tightness. She rates pain at a 9 out of 10 currently. She states that she has been nauseated but has not vomited. She denies any diaphoresis. Patient states the pain is worsened with exertion. She states that onset of pain was at rest. Patient does have significant cardiac history with history of 5 stents. Troponin elevated from 0.08 to 11 overnight. She did start smoking again after quitting with chantix and has not been taking ASA or plavix To lab head yesterday with Mid occlusion in the left circumflex at the site of previous stent placement. Successful opening of this lesion and a more distal lesion with balloon angioplasty. Moderate diffuse disease in the left anterior descending as noted as well. Her pain improved Discharge when ok with cardiology on optimized meds Vitals Vitals Vital Signs Date Time Temp Pulse Resp B/P (MAP) Pulse Ox O2 Delivery O2 Flow Rate FiO2 11/30/18 08:27 71 149/81 11/30/18 07:00 12 95 Nasal Cannula 3.0 11/30/18 04:00 98.8 98.8 Physical Exam General: Alert, Oriented X3, Cooperative, No acute distress Heart: Regular rate (SR) Lungs: Wheezing Abdomen: No tenderness Extremities: No cyanosis Skin: No breakdown, No significant lesion Labs LABS Laboratory Tests Test 11/29/18 12:00 11/29/18 12:26 11/29/18 17:55 11/29/18 18:50 Nasal Screen MRSA (PCR) Negative (Negative) Glucose (Fingerstick) 102 mg/dL (70-99) 80 mg/dL (70-99) Troponin I Quantitative 110.228 ng/mL (0.000-0.055) Test 11/29/18 22:54 11/30/18 02:35 Glucose (Fingerstick) 99 mg/dL (70-99) White Blood Count 8.2 x10^3/uL (4.0-11.0) Red Blood Count 4.84 x10^6/uL (3.50-5.40) Hemoglobin 12.9 g/dL (12.0-15.5) Hematocrit 40.6 % (36.0-47.0) Mean Corpuscular Volume 84 fL (79-100) Mean Corpuscular Hemoglobin 27 pg (25-35) Mean Corpuscular Hemoglobin Concent 32 g/dL (31-37) Red Cell Distribution Width 16.4 % (11.5-14.5) Platelet Count 182 x10^3/uL (140-400) Neutrophils (%) (Auto) 67 % (31-73) Lymphocytes (%) (Auto) 22 % (24-48) Monocytes (%) (Auto) 7 % (0-9) Eosinophils (%) (Auto) 3 % (0-3) Basophils (%) (Auto) 0 % (0-3) Neutrophils # (Auto) 5.5 x10^3uL (1.8-7.7) Lymphocytes # (Auto) 1.8 x10^3/uL (1.0-4.8) Monocytes # (Auto) 0.6 x10^3/uL (0.0-1.1) Eosinophils # (Auto) 0.2 x10^3/uL (0.0-0.7) Basophils # (Auto) 0.0 x10^3/uL (0.0-0.2) Heparin Anti-Xa Act, Unfractionated 0.19 IU/mL (0.30-0.70) Sodium Level 141 mmol/L (136-145) Potassium Level 3.8 mmol/L (3.5-5.1) Chloride Level 102 mmol/L (98-107) Carbon Dioxide Level 34 mmol/L (21-32) Anion Gap 5 (6-14) Blood Urea Nitrogen 8 mg/dL (7-20) Creatinine 0.6 mg/dL (0.6-1.0) Estimated GFR (Cockcroft-Gault) 98.5 Glucose Level 107 mg/dL (70-99) Calcium Level 8.5 mg/dL (8.5-10.1) Magnesium Level 2.1 mg/dL (1.8-2.4) Assessment and Plan Assessmemt and Plan Problems Medical Problems: (1) Non-STEMI (non-ST elevated myocardial infarction) Status: Acute Comment Review of Relevant I have reviewed the following items dian (where applicable) has been applied. Labs Laboratory Tests Test 11/28/18 23:35 11/29/18 03:45 11/29/18 06:50 11/29/18 08:07 White Blood Count 11.0 x10^3/uL (4.0-11.0) Red Blood Count 5.62 x10^6/uL (3.50-5.40) Hemoglobin 15.1 g/dL (12.0-15.5) Hematocrit 46.8 % (36.0-47.0) Mean Corpuscular Volume 83 fL (79-100) Mean Corpuscular Hemoglobin 27 pg (25-35) Mean Corpuscular Hemoglobin Concent 32 g/dL (31-37) Red Cell Distribution Width 16.3 % (11.5-14.5) Platelet Count 267 x10^3/uL (140-400) Neutrophils (%) (Auto) 55 % (31-73) Lymphocytes (%) (Auto) 32 % (24-48) Monocytes (%) (Auto) 8 % (0-9) Eosinophils (%) (Auto) 3 % (0-3) Basophils (%) (Auto) 1 % (0-3) Neutrophils # (Auto) 6.1 x10^3uL (1.8-7.7) Lymphocytes # (Auto) 3.6 x10^3/uL (1.0-4.8) Monocytes # (Auto) 0.9 x10^3/uL (0.0-1.1) Eosinophils # (Auto) 0.4 x10^3/uL (0.0-0.7) Basophils # (Auto) 0.1 x10^3/uL (0.0-0.2) D-Dimer (Maribell) 0.76 ug/mlFEU (0.00-0.50) Sodium Level 141 mmol/L (136-145) 143 mmol/L (136-145) Potassium Level 3.1 mmol/L (3.5-5.1) 3.7 mmol/L (3.5-5.1) Chloride Level 100 mmol/L (98-107) 105 mmol/L (98-107) Carbon Dioxide Level 37 mmol/L (21-32) 34 mmol/L (21-32) Anion Gap 4 (6-14) 4 (6-14) Blood Urea Nitrogen 14 mg/dL (7-20) 13 mg/dL (7-20) Creatinine 0.8 mg/dL (0.6-1.0) 0.7 mg/dL (0.6-1.0) Estimated GFR (Cockcroft-Gault) 70.7 82.5 BUN/Creatinine Ratio 18 (6-20) Glucose Level 111 mg/dL (70-99) 123 mg/dL (70-99) Calcium Level 9.6 mg/dL (8.5-10.1) 8.5 mg/dL (8.5-10.1) Magnesium Level 1.8 mg/dL (1.8-2.4) 1.6 mg/dL (1.8-2.4) Total Bilirubin 0.3 mg/dL (0.2-1.0) Aspartate Amino Transf (AST/SGOT) 13 U/L (15-37) Alanine Aminotransferase (ALT/SGPT) 16 U/L (14-59) Alkaline Phosphatase 101 U/L (46-116) Troponin I Quantitative 0.088 ng/mL (0.000-0.055) 4.331 ng/mL (0.000-0.055) 11.703 ng/mL (0.000-0.055) Total Protein 7.4 g/dL (6.4-8.2) Albumin 3.3 g/dL (3.4-5.0) Albumin/Globulin Ratio 0.8 (1.0-1.7) Heparin Anti-Xa Act, Unfractionated 0.52 IU/mL (0.30-0.70) Triglycerides Level 95 mg/dL (0-150) Cholesterol Level 223 mg/dL (0-200) LDL Cholesterol, Calculated 161 mg/dL (0-100) VLDL Cholesterol, Calculated 19 mg/dL (0-40) Non-HDL Cholesterol Calculated 180 mg/dL (0-129) HDL Cholesterol 43 mg/dL (40-60) Cholesterol/HDL Ratio 5.2 Glucose (Fingerstick) 111 mg/dL (70-99) Test 11/29/18 12:00 11/29/18 12:26 11/29/18 17:55 11/29/18 18:50 Nasal Screen MRSA (PCR) Negative (Negative) Glucose (Fingerstick) 102 mg/dL (70-99) 80 mg/dL (70-99) Troponin I Quantitative 110.228 ng/mL (0.000-0.055) Test 11/29/18 22:54 11/30/18 02:35 Glucose (Fingerstick) 99 mg/dL (70-99) White Blood Count 8.2 x10^3/uL (4.0-11.0) Red Blood Count 4.84 x10^6/uL (3.50-5.40) Hemoglobin 12.9 g/dL (12.0-15.5) Hematocrit 40.6 % (36.0-47.0) Mean Corpuscular Volume 84 fL (79-100) Mean Corpuscular Hemoglobin 27 pg (25-35) Mean Corpuscular Hemoglobin Concent 32 g/dL (31-37) Red Cell Distribution Width 16.4 % (11.5-14.5) Platelet Count 182 x10^3/uL (140-400) Neutrophils (%) (Auto) 67 % (31-73) Lymphocytes (%) (Auto) 22 % (24-48) Monocytes (%) (Auto) 7 % (0-9) Eosinophils (%) (Auto) 3 % (0-3) Basophils (%) (Auto) 0 % (0-3) Neutrophils # (Auto) 5.5 x10^3uL (1.8-7.7) Lymphocytes # (Auto) 1.8 x10^3/uL (1.0-4.8) Monocytes # (Auto) 0.6 x10^3/uL (0.0-1.1) Eosinophils # (Auto) 0.2 x10^3/uL (0.0-0.7) Basophils # (Auto) 0.0 x10^3/uL (0.0-0.2) Heparin Anti-Xa Act, Unfractionated 0.19 IU/mL (0.30-0.70) Sodium Level 141 mmol/L (136-145) Potassium Level 3.8 mmol/L (3.5-5.1) Chloride Level 102 mmol/L (98-107) Carbon Dioxide Level 34 mmol/L (21-32) Anion Gap 5 (6-14) Blood Urea Nitrogen 8 mg/dL (7-20) Creatinine 0.6 mg/dL (0.6-1.0) Estimated GFR (Cockcroft-Gault) 98.5 Glucose Level 107 mg/dL (70-99) Calcium Level 8.5 mg/dL (8.5-10.1) Magnesium Level 2.1 mg/dL (1.8-2.4) Laboratory Tests Test 11/29/18 12:00 11/29/18 12:26 11/29/18 17:55 11/29/18 18:50 Nasal Screen MRSA (PCR) Negative (Negative) Glucose (Fingerstick) 102 mg/dL (70-99) 80 mg/dL (70-99) Troponin I Quantitative 110.228 ng/mL (0.000-0.055) Test 11/29/18 22:54 11/30/18 02:35 Glucose (Fingerstick) 99 mg/dL (70-99) White Blood Count 8.2 x10^3/uL (4.0-11.0) Red Blood Count 4.84 x10^6/uL (3.50-5.40) Hemoglobin 12.9 g/dL (12.0-15.5) Hematocrit 40.6 % (36.0-47.0) Mean Corpuscular Volume 84 fL (79-100) Mean Corpuscular Hemoglobin 27 pg (25-35) Mean Corpuscular Hemoglobin Concent 32 g/dL (31-37) Red Cell Distribution Width 16.4 % (11.5-14.5) Platelet Count 182 x10^3/uL (140-400) Neutrophils (%) (Auto) 67 % (31-73) Lymphocytes (%) (Auto) 22 % (24-48) Monocytes (%) (Auto) 7 % (0-9) Eosinophils (%) (Auto) 3 % (0-3) Basophils (%) (Auto) 0 % (0-3) Neutrophils # (Auto) 5.5 x10^3uL (1.8-7.7) Lymphocytes # (Auto) 1.8 x10^3/uL (1.0-4.8) Monocytes # (Auto) 0.6 x10^3/uL (0.0-1.1) Eosinophils # (Auto) 0.2 x10^3/uL (0.0-0.7) Basophils # (Auto) 0.0 x10^3/uL (0.0-0.2) Heparin Anti-Xa Act, Unfractionated 0.19 IU/mL (0.30-0.70) Sodium Level 141 mmol/L (136-145) Potassium Level 3.8 mmol/L (3.5-5.1) Chloride Level 102 mmol/L (98-107) Carbon Dioxide Level 34 mmol/L (21-32) Anion Gap 5 (6-14) Blood Urea Nitrogen 8 mg/dL (7-20) Creatinine 0.6 mg/dL (0.6-1.0) Estimated GFR (Cockcroft-Gault) 98.5 Glucose Level 107 mg/dL (70-99) Calcium Level 8.5 mg/dL (8.5-10.1) Magnesium Level 2.1 mg/dL (1.8-2.4) Medications Current Medications Aspirin (Children'S Aspirin) 324 mg 1X ONCE PO Last administered on 11/28/18at 23:46; Start 11/29/18 at 00:00; Stop 11/29/18 at 00:01; Status DC Nitroglycerin (Nitrostat) 0.4 mg PRN Q5MIN PRN SL CP RATING > 1/10 Last administered on 11/28/18at 23:47; Start 11/28/18 at 23:45; Stop 11/29/18 at 23:44 ; Status DC Morphine Sulfate (Morphine Sulfate) 2 mg 1X ONCE IV Last administered on at 23:48; Start 11/29/18 at 00:00; Stop 11/29/18 at 00:01; Status DC Sodium Chloride 1,000 ml @ 100 mls/hr Q10H IV Last administered on 11/28/18at 23:48; Start 11/29/18 at 00:00; Stop 11/29/18 at 09:59; Status DC Ondansetron HCl (Zofran) 4 mg 1X ONCE IV Last administered on 11/28/18 23:47 ; Start 11/29/18 at 00:00; Stop 11/29/18 at 00:01; Status DC Potassium Chloride (Klor-Con) 40 meq 1X ONCE PO Last administered on 00:25; Start 11/29/18 at 01:00; Stop 11/29/18 at 01:01; Status DC Morphine Sulfate (Morphine Sulfate) 2 mg 1X ONCE IV Last administered on at 01:17; Start 11/29/18 at 01:00; Stop 11/29/18 at 01:01; Status DC Ondansetron HCl (Zofran) 4 mg PRN Q8HRS PRN IV NAUSEA/VOMITING 1ST CHOICE Last administered on 11/29/18at 11:22; Start 11/29/18 at 01:00; Stop 11/30/18 at 00:59 ; Status DC Morphine Sulfate (Morphine Sulfate) 2 mg PRN Q2HR PRN IV SEVERE PAIN Last administered on 11/29/18at 23:01; Start 11/29/18 at 01:00; Stop 11/30/18 at 00:59 ; Status DC Sodium Chloride 1,000 ml @ 125 mls/hr Q8H IV Last administered on 11/29/18 12 :23; Start 11/29/18 at 01:00; Stop 11/29/18 at 15:50; Status DC Clonidine HCl (Catapres) 0.2 mg 1X ONCE PO Last administered on 11/29/18 01: 18; Start 11/29/18 at 01:30; Stop 11/29/18 at 01:31; Status DC Heparin Sodium (Porcine) (Heparin Sodium) 4,000 unit 1X ONCE IV Last administered on 11/29/18at 01:20; Start 11/29/18 at 01:30; Stop 11/29/18 at 01:31 ; Status DC Heparin Sodium/ Dextrose 500 ml @ 0 mls/hr CONT PRN IV SEE I/O RECORD Last administered on 11/29/18 01:21; Start 11/29/18 at 01:00; Stop 11/29/18 at 18:42 ; Status DC Heparin Sodium (Porcine) (Heparin Sodium) 1,800 unit PRN Q6HRS PRN IV FOR UFH LEVEL LESS THAN 0.2 Last administered on 11/30/18at 04:38; Start 11/29/18 at 01: 00 Trazodone HCl (Desyrel) 150 mg QHS PO Last administered on 11/29/18at 22:55; Start 11/29/18 at 21:00 Insulin Glargine (Lantus) 8 units QHS SQ ; Start 11/29/18 at 21:00 Insulin Human Lispro (HumaLOG) 0-7 UNITS TIDWMEALS SQ ; Start 11/29/18 at 08:00 Dextrose (Dextrose 50%-Water Syringe) 12.5 gm PRN Q15MIN PRN IV SEE COMMENTS; Start 11/29/18 at 08:00 Magnesium Sulfate 50 ml @ 25 mls/hr 1X ONCE IV Last administered on 11/29/18at 12:22; Start 11/29/18 at 08:30; Stop 11/29/18 at 10:29; Status DC Info (Anti-Coagulation Monitoring By Pharmacy) 1 each PRN DAILY PRN MC SEE COMMENTS Last administered on 11/29/18at 11:16; Start 11/29/18 at 08:15 Info (Anti-Coagulation Monitoring By Pharmacy) 1 each PRN DAILY PRN MC SEE COMMENTS; Start 11/29/18 at 08:30; Status Cancel Fentanyl Citrate (Fentanyl 2ml Vial) 100 mcg STK-MED ONCE .ROUTE ; Start at 08:28; Stop 11/29/18 at 08:29; Status DC Midazolam HCl (Versed) 5 mg STK-MED ONCE .ROUTE ; Start 11/29/18 at 08:28; Stop 11/29/18 at 08:29; Status DC Heparin Sodium/ Sodium Chloride (HEPARIN for ARTERIAL LINE FLUSH) 1,000 unit 1X ONCE IART Last administered on 11/29/18at 10:36; Start 11/29/18 at 08:45; Stop 11/29/18 at 08:50; Status DC Heparin Sodium/ Sodium Chloride (HEPARIN for ARTERIAL LINE FLUSH) 1,000 unit 1X ONCE IART Last administered on 11/29/18at 10:36; Start 11/29/18 at 08:45; Stop 11/29/18 at 08:50; Status DC Midazolam HCl (Versed) 5 mg 1X ONCE IV Last administered on 11/29/18at 10:39; Start 11/29/18 at 08:45; Stop 11/29/18 at 08:50; Status DC Fentanyl Citrate (Fentanyl 2ml Vial) 100 mcg 1X ONCE IV Last administered on at 10:38; Start 11/29/18 at 08:45; Stop 11/29/18 at 08:50; Status DC Iohexol (Omnipaque 300 Mg/ml) 100 ml 1X ONCE IART Last administered on at 10:38; Start 11/29/18 at 08:45; Stop 11/29/18 at 08:50; Status DC Lidocaine HCl (Lidocaine 1% 20ml Vial) 20 ml 1X ONCE INJ Last administered on 11/29/18at 08:45; Start 11/29/18 at 08:45; Stop 11/29/18 at 08:50; Status DC Iohexol (Omnipaque 300 Mg/ml) 100 ml STK-MED ONCE .ROUTE ; Start 11/29/18 at 09: 33; Stop 11/29/18 at 09:34; Status DC Bivalirudin (Angiomax) 250 mg STK-MED ONCE IV ; Start 11/29/18 at 09:44; Stop at 09:45; Status DC Bivalirudin (Angiomax) 250 mg 1X ONCE IV Last administered on 11/29/18at 10:37 ; Start 11/29/18 at 09:47; Stop 11/29/18 at 09:58; Status DC Iohexol (Omnipaque 300 Mg/ml) 100 ml STK-MED ONCE .ROUTE ; Start 11/29/18 at 09: 51; Stop 11/29/18 at 09:52; Status DC Clopidogrel Bisulfate (Plavix) 75 mg STK-MED ONCE .ROUTE ; Start 11/29/18 at 10: 16; Stop 11/29/18 at 10:17; Status DC Aspirin (Daniela Aspirin) 325 mg STK-MED ONCE .ROUTE ; Start 11/29/18 at 10:16; Stop 11/29/18 at 10:17; Status DC Nitroglycerin (Nitroglycerin) 200 mcg STK-MED ONCE .ROUTE ; Start 11/29/18 at 10 :17; Stop 11/29/18 at 10:18; Status DC Nitroglycerin (Nitroglycerin) 200 mcg 1X ONCE ICAR Last administered on at 10:36; Start 11/29/18 at 10:30; Stop 11/29/18 at 10:31; Status DC Clopidogrel Bisulfate (Plavix) 600 mg 1X ONCE PO Last administered on at 10:36; Start 11/29/18 at 10:30; Stop 11/29/18 at 10:31; Status DC Iohexol (Omnipaque 300 Mg/ml) 100 ml STK-MED ONCE .ROUTE ; Start 11/29/18 at 10: 21; Stop 11/29/18 at 10:22; Status DC Aspirin (Daniela Aspirin) 325 mg 1X ONCE PO Last administered on 11/29/18at 10:45 ; Start 11/29/18 at 10:45; Stop 11/29/18 at 10:46; Status DC Iohexol (Omnipaque 300 Mg/ml) 100 ml STK-MED ONCE .ROUTE ; Start 11/29/18 at 11: 14; Stop 11/29/18 at 11:15; Status DC Lidocaine HCl (Lidocaine 1% 20ml Vial) 20 ml STK-MED ONCE .ROUTE ; Start at 11:14; Stop 11/29/18 at 11:15; Status DC Heparin Sodium/ Sodium Chloride 1,000 ml @ As Directed STK-MED ONCE .ROUTE ; Start 11/29/18 at 11:15; Stop 11/29/18 at 11:16; Status DC Sodium Chloride (Normal Saline Flush) 3 ml QSHIFT PRN IV AFTER MEDS AND BLOOD DRAWS; Start 11/29/18 at 12:30 Sodium Chloride 1,000 ml @ 75 mls/hr [id number] IV ; Start 11/29/18 at 12:20; Stop 11/29/18 at 18:19; Status DC Aspirin (Ecotrin) 325 mg DAILYWBKFT PO Last administered on 11/30/18at 08:25; Start 11/30/18 at 08:00 Clopidogrel Bisulfate (Plavix) 75 mg DAILYWBKFT PO Last administered on at 08:25; Start 11/30/18 at 08:00 Lisinopril (Prinivil) 5 mg DAILY PO Last administered on 11/30/18at 08:27; Start 11/29/18 at 13:00 Acetaminophen (Tylenol) 650 mg PRN Q6HRS PRN PO MILD PAIN / TEMP; Start at 12:30 Fentanyl Citrate (Fentanyl 2ml Vial) 50 mcg PRN Q1HR PRN IV MODERATE OR SEVERE PAIN Last administered on 11/30/18at 06:06; Start 11/29/18 at 12:30 Nitroglycerin (Nitrostat) 0.4 mg PRN Q5MIN PRN SL CHEST PAIN; Start 11/29/18 at 12:30 Amiodarone HCl 150 mg/Dextrose 103 ml @ 600 mls/hr 1X PRN PRN IV FOR VENTRICULAR TACHYCARDIA; Start 11/29/18 at 12:30 Lidocaine HCl (Lidocaine HCl 2% Abboject) 100 mg 1X PRN PRN IV FOR VENTRICULAR TACHYCARDIA; Start 11/29/18 at 12:30 Atropine Sulfate (ATROPINE 0.5mg SYRINGE) 0.5 mg PRN 1X PRN IV BRADYCARDIA; Start 11/29/18 at 12:30 Hydralazine HCl (Apresoline Inj) 10 mg PRN Q4HRS PRN IVP ELEVATED BP, SEE COMMENTS; Start 11/29/18 at 18:15 Heparin Sodium/ Dextrose 500 ml @ 0 mls/hr CONT PRN IV SEE I/O RECORD Last administered on 11/29/18at 20:31; Start 11/29/18 at 18:45 Heparin Sodium (Porcine) (Heparin Sodium) 1,750 unit PRN Q6HRS PRN IV FOR UFH LEVEL LESS THAN 0.2; Start 11/29/18 at 18:45 Active Scripts Active Reported Levsin-Sl (Hyoscyamine Sulfate) 0.125 Mg Tab.subl 1-2 Tab SL PRN Q4HRS Benzonatate 100 Mg Capsule 100 Mg PO TID PRN Doxycycline Hyclate 100 Mg Capsule 1 Cap PO BID Potassium Chloride 10 Meq Tablet.er 10 Meq PO BID Fluoxetine Hcl 40 Mg Capsule 60 Mg PO DAILY Metformin Hcl 500 Mg Tablet 500 Mg PO DAILYWBKFT Hydrochlorothiazide Capsule (Hydrochlorothiazide) 12.5 Mg Capsule 12.5 Mg PO DAILY Requip (Ropinirole Hcl) 0.5 Mg Tablet 0.25 Mg PO BID Protonix (Pantoprazole Sodium) 20 Mg Tablet.dr 40 Mg PO DAILY Hydroxyzine Hcl 25 Mg Tablet 25 Mg PO PRN Q8HRS PRN Cyclobenzaprine Hcl 5 Mg Tablet 5 Mg PO TID Trazodone Hcl 150 Mg Tablet 1 Tab PO QHS Vitals/I & O Vital Sign - Last 24 Hours 11/29/18 11/29/18 11/29/18 11/29/18 10:38 10:55 11:00 11:15 Pulse 67 60 58 Resp 16 14 16 16 B/P (MAP) 128/85 (99) 145/89 (107) Pulse Ox 98 96 O2 Delivery Nasal Cannula Nasal Cannula Nasal Cannula Nasal Cannula O2 Flow Rate 3.0 3.0 3.0 3.0 11/29/18 11/29/18 11/29/18 11/29/18 11:30 11:45 12:00 12:00 Temp 98.6 98.6 Pulse 58 56 56 Resp 16 16 16 B/P (MAP) 154/89 (110) 137/79 (98) 116/75 (89) Pulse Ox 97 O2 Delivery Nasal Cannula Nasal Cannula Nasal Cannula Nasal Cannula O2 Flow Rate 3.0 3.0 3.0 3.0 11/29/18 11/29/18 11/29/18 11/29/18 12:15 12:30 12:45 16:00 Pulse 56 54 58 Resp 16 16 16 B/P (MAP) 123/78 (93) 118/75 (89) 141/90 (107) Pulse Ox 97 O2 Delivery Nasal Cannula Nasal Cannula Nasal Cannula Nasal Cannula O2 Flow Rate 3.0 3.0 3.0 3.0 11/29/18 11/29/18 11/29/18 11/29/18 16:00 17:00 17:57 18:00 Pulse 75 65 B/P (MAP) 150/88 (108) 163/95 (117) 163/95 151/82 (105) Pulse Ox 97 O2 Delivery Nasal Cannula Nasal Cannula Nasal Cannula O2 Flow Rate 3.0 11/29/18 11/29/18 11/29/18 11/29/18 19:00 20:00 20:00 21:00 Temp 98.0 98.0 Pulse 86 73 70 Resp 12 14 12 B/P (MAP) 136/90 (105) 138/79 (98) 140/86 (104) Pulse Ox 97 94 99 O2 Delivery Nasal Cannula Nasal Cannula Nasal Cannula Nasal Cannula O2 Flow Rate 3.0 3.0 3.0 3.0 11/29/18 11/29/18 11/29/18 11/30/18 22:00 23:00 23:01 00:00 Pulse 71 71 Resp 12 12 12 B/P (MAP) 152/88 (109) 122/76 (91) Pulse Ox 97 95 97 O2 Delivery Nasal Cannula Nasal Cannula Nasal Cannula Nasal Cannula O2 Flow Rate 3.0 3.0 3.0 3.0 11/30/18 11/30/18 11/30/18 11/30/18 00:01 01:00 02:00 03:00 Pulse 70 86 84 74 Resp 12 12 12 12 B/P (MAP) 153/82 (105) 150/86 (107) 156/81 (106) 126/73 (90) Pulse Ox 94 92 92 94 O2 Delivery Nasal Cannula Nasal Cannula Nasal Cannula Nasal Cannula O2 Flow Rate 3.0 3.0 3.0 3.0 11/30/18 11/30/18 11/30/18 11/30/18 04:00 04:00 05:00 06:00 Temp 98.8 98.8 Pulse 67 70 75 Resp 12 12 12 B/P (MAP) 163/86 (111) 145/87 (106) 154/88 (110) Pulse Ox 96 94 94 O2 Delivery Nasal Cannula Nasal Cannula Nasal Cannula Nasal Cannula O2 Flow Rate 3.0 3.0 3.0 3.0 11/30/18 11/30/18 11/30/18 11/30/18 06:06 06:36 07:00 08:27 Pulse 70 71 Resp 12 12 B/P (MAP) 125/75 (92) 149/81 Pulse Ox 96 96 95 O2 Delivery Nasal Cannula Nasal Cannula Nasal Cannula O2 Flow Rate 3.0 3.0 3.0 Intake and Output 11/29/18 11/29/18 11/30/18 15:00 23:00 07:00 Intake Total 100 ml 989 ml 149.8 ml Output Total 250 ml 0 ml 0 ml Balance -150 ml 989 ml 149.8 ml Images ECHO - The left ventricle is normal size. Left ventricle systolic function is mildly impaired. The Ejection Fraction is estimated at 40%. There is hypokinesis in the basalar and apical anterolateral regions. There is mild concentric left ventricular hypertrophy. There is no significant aortic valvular stenosis. Doppler and Color Flow revealed no significant aortic regurgitation. Doppler and Color-flow revealed mild mitral regurgitation. Doppler and Color Flow revealed trace tricuspid regurgitation. The PA pressure was estimated at 20 mmHg. RASHEED WONG MD Nov 30, 2018 08:33
[2018-11-30] MEDS ORDERED: LISI-338 PO (08:45)
[2018-11-30] MEDS ORDERED: VARE0.5T PO (08:45)
[2018-11-30] MEDS ORDERED: CLOP75TA PO (08:45)
[2018-11-30] MEDS ORDERED: ASPI325T11 PO (08:45)
[2018-11-30] MEDS ORDERED: METO-239 PO (08:48)
[2018-11-30] MEDS: METOPROLOL SUCC 24HR ER 25 MG TAB.ER.24H. PO SCH (11:02)
--- NOTE | 2018-11-30 11:51 | NUR ---
Nursing Note 0815- Spoke with Krys Snow APRN for cardiology regarding pts last troponin result of 110.228. Pt c/o 11/22 heavy chest pain. Orders to obtain EKG. 1100- Orders received to keep pt NPO until further notice. Will continue to monitor.
--- NOTE | 2018-11-30 12:47 | PDOC ---
[facility] 11/30/18 1247: CARDIO Progress Notes Date and Time Date of Service 11/30/18 Time of Evaluation 1215 Subjective Subjective: No shortness of breath, No Palpitations, Other (c/o chest pain/ pressure- 5/10) Vitals Vitals Vital Signs Date Time Temp Pulse Resp B/P (MAP) Pulse Ox O2 Delivery O2 Flow Rate FiO2 11/30/18 12:00 99.2 67 14 142/86 (104) 94 Nasal Cannula 3.0 99.2 Weight Weight [ ] Input and Output Intake and Output Intake and Output 11/30/18 07:00 Intake Total 1238.8 ml Output Total 250 ml Balance 988.8 ml Intake Oral 300 ml IV Total 938.8 ml Output Urine Total 250 ml # Voids 4 Laboratory Labs Laboratory Tests Test 11/29/18 17:55 11/29/18 18:50 11/29/18 22:54 11/30/18 02:35 Glucose (Fingerstick) 80 mg/dL (70-99) 99 mg/dL (70-99) Troponin I Quantitative 110.228 ng/mL (0.000-0.055) White Blood Count 8.2 x10^3/uL (4.0-11.0) Red Blood Count 4.84 x10^6/uL (3.50-5.40) Hemoglobin 12.9 g/dL (12.0-15.5) Hematocrit 40.6 % (36.0-47.0) Mean Corpuscular Volume 84 fL (79-100) Mean Corpuscular Hemoglobin 27 pg (25-35) Mean Corpuscular Hemoglobin Concent 32 g/dL (31-37) Red Cell Distribution Width 16.4 % (11.5-14.5) Platelet Count 182 x10^3/uL (140-400) Neutrophils (%) (Auto) 67 % (31-73) Lymphocytes (%) (Auto) 22 % (24-48) Monocytes (%) (Auto) 7 % (0-9) Eosinophils (%) (Auto) 3 % (0-3) Basophils (%) (Auto) 0 % (0-3) Neutrophils # (Auto) 5.5 x10^3uL (1.8-7.7) Lymphocytes # (Auto) 1.8 x10^3/uL (1.0-4.8) Monocytes # (Auto) 0.6 x10^3/uL (0.0-1.1) Eosinophils # (Auto) 0.2 x10^3/uL (0.0-0.7) Basophils # (Auto) 0.0 x10^3/uL (0.0-0.2) Heparin Anti-Xa Act, Unfractionated 0.19 IU/mL (0.30-0.70) Sodium Level 141 mmol/L (136-145) Potassium Level 3.8 mmol/L (3.5-5.1) Chloride Level 102 mmol/L (98-107) Carbon Dioxide Level 34 mmol/L (21-32) Anion Gap 5 (6-14) Blood Urea Nitrogen 8 mg/dL (7-20) Creatinine 0.6 mg/dL (0.6-1.0) Estimated GFR (Cockcroft-Gault) 98.5 Glucose Level 107 mg/dL (70-99) Calcium Level 8.5 mg/dL (8.5-10.1) Magnesium Level 2.1 mg/dL (1.8-2.4) Test 11/30/18 08:28 11/30/18 10:05 11/30/18 12:20 Glucose (Fingerstick) 93 mg/dL (70-99) 113 mg/dL (70-99) Heparin Anti-Xa Act, Unfractionated 0.39 IU/mL (0.30-0.70) Physical Exam HEENT: Neck Supple W Full Motion Chest: Symmetric LUNGS: Clear to Auscultation Heart: S1S2, RRR, no gallops, no murmurs Extremities: No Edema Neurology: alert, oriented, follow commands Assessment Assessment 1. NSTEMI 2. CAD; s/p angioplasty to LCx in-stent restenosis and distal lesion. LAD with moderate disease. RCA restenosis with 90% midportion lesion. 3. ICM; LVEF 40%. Compensated 4. Hypertension; controlled 5. Hyperlipidemia; hx stain intolerance Recommendations ASA, Plavix, BB, ACEi. Increase lisinopril NPO p MN Will plan for cardiac cath/PCI to the RCA tomorrow. VIRGINIA SINGH MD 11/30/18 [id number]: CARDIO Progress Notes Plan Plan Patient seen and examined. Agree with above nurse practitioner note. 73-year-old woman with a large myocardial infarction with a troponin level above 100. Her culprit lesion was treated with angioplasty and had difficulty being stented due to significant tortuosity Her pain has improved but still present and her EKG has been stable. Due to continued persistent chest pain we will treat her with medical therapy overnight and if this does not improve may consider PCI of the right coronary artery. Otherwise supportive care for now. GRECIA DAY APRN Nov 30, 2018 12:47 VIRGINIA SINGH MD Nov 30, 2018 18:37
--- NOTE | 2018-11-30 14:49 | NUR ---
SS following up with discharge planning. Pt requiring oxygen at this time. PT/OT evaluated and stated no needs. Discharge disposition is home. SS will continue to follow for discharge planning.
--- NOTE | 2018-11-30 18:32 | NUR ---
Received pt transferred from ICU with heparin gtt infusing. Pt oriented to room and unit routines. Pt states she currently has no chest pain at this time. Explained the plan of care for repeat heart cath for tomorrow. Pt advised nothing to eat or drink after midnight. Pt verbalized understanding. Call light within reach. Will continue to monitor.
[2018-11-30] MEDS: traZODone 100 MG TABLET. PO SCH (20:28)
[2018-11-30] MEDS: INSULIN GLARGINE 300 UNITS/3 ML INSULN.PEN. SQ SCH (21:00)
[2018-12-01] VITALS (15 sets, daily range): BP systolic 90–145; BP diastolic 40–77
[2018-12-01] MEDS: INSULIN LISPRO 300 UNITS/3 ML INSULN.PEN. SQ SCH ×3 (08:00→17:00)
--- NOTE | 2018-12-01 08:00 | PDOC ---
PROGRESS NOTES Chief Complaint Chief Complaint A/P: NSTEMI - with highly elevated troponins, cath results with circumflex angioplasty only. Troponin over 100 post cath Malignant HTN - better, cont meds Myopathy with several statins in the past - will need to consider a PCSK9 inhibitor repatha or praluent Smoker - relapsed, will need new script for chantix DM - will place on sliding scale insulin CAD; s/p angioplasty to LCx in-stent restenosis and distal lesion. LAD with moderate disease. RCA restenosis with 90% midportion lesion. Ischemic Cardiomyopathy - LVEF 40%. Currently compensated today Hyperlipidemia; hx stain intolerance as above History of Present Illness History of Present Illness Patient is a 73-year-old female w/PMHx smoker (quit), Coronary artery disease, status post multiple stents, most recently approximately 4 years ago, Hypertension, Diabetes, Dyslipidemia who presents with 2 day history of left- sided chest pain. Patient states that at times it radiates to her left shoulder. She describes pain as a lot of pressure and tightness. She rates pain at a 9 out of 10 currently. She states that she has been nauseated but has not vomited. She denies any diaphoresis. Patient states the pain is worsened with exertion. She states that onset of pain was at rest. Patient does have significant cardiac history with history of 5 stents. Troponin elevated from 0.08 to 11 overnight. 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 Successful opening of this lesion and a more distal lesion with balloon angioplasty. Moderate diffuse disease in the left anterior descending as noted as well. Her pain improved. Unfortunately still having pain and troponin went much higher than expected. Plan: Back to labor and employment paralegal today Optimized meds Cardiac rehab on d/c Vitals Vitals Vital Signs Date Time Temp Pulse Resp B/P (MAP) Pulse Ox O2 Delivery O2 Flow Rate FiO2 12/01/18 07:00 97.7 71 16 137/71 (93) 93 Nasal Cannula 3.0 97.7 Physical Exam General: Alert, Oriented X3, Cooperative, No acute distress Heart: Regular rate (SR) Lungs: Wheezing Abdomen: No tenderness Extremities: No cyanosis Skin: No breakdown, No significant lesion Labs LABS Laboratory Tests Test 11/30/18 08:28 11/30/18 10:05 11/30/18 12:20 11/30/18 17:20 Glucose (Fingerstick) 93 mg/dL (70-99) 113 mg/dL (70-99) Heparin Anti-Xa Act, Unfractionated 0.39 IU/mL (0.30-0.70) 0.25 IU/mL (0.30-0.70) Test 11/30/18 17:21 11/30/18 20:27 12/01/18 00:15 Glucose (Fingerstick) 84 mg/dL (70-99) 136 mg/dL (70-99) Heparin Anti-Xa Act, Unfractionated 0.27 IU/mL (0.30-0.70) Assessment and Plan Assessmemt and Plan Problems Medical Problems: (1) Non-STEMI (non-ST elevated myocardial infarction) Status: Acute Comment Review of Relevant I have reviewed the following items dian (where applicable) has been applied. Labs Laboratory Tests Test 11/29/18 08:07 11/29/18 12:00 11/29/18 12:26 11/29/18 17:55 Glucose (Fingerstick) 111 mg/dL (70-99) 102 mg/dL (70-99) 80 mg/dL (70-99) Nasal Screen MRSA (PCR) Negative (Negative) Test 11/29/18 18:50 11/29/18 22:54 11/30/18 02:35 11/30/18 08:28 Troponin I Quantitative 110.228 ng/mL (0.000-0.055) Glucose (Fingerstick) 99 mg/dL (70-99) 93 mg/dL (70-99) White Blood Count 8.2 x10^3/uL (4.0-11.0) Red Blood Count 4.84 x10^6/uL (3.50-5.40) Hemoglobin 12.9 g/dL (12.0-15.5) Hematocrit 40.6 % (36.0-47.0) Mean Corpuscular Volume 84 fL (79-100) Mean Corpuscular Hemoglobin 27 pg (25-35) Mean Corpuscular Hemoglobin Concent 32 g/dL (31-37) Red Cell Distribution Width 16.4 % (11.5-14.5) Platelet Count 182 x10^3/uL (140-400) Neutrophils (%) (Auto) 67 % (31-73) Lymphocytes (%) (Auto) 22 % (24-48) Monocytes (%) (Auto) 7 % (0-9) Eosinophils (%) (Auto) 3 % (0-3) Basophils (%) (Auto) 0 % (0-3) Neutrophils # (Auto) 5.5 x10^3uL (1.8-7.7) Lymphocytes # (Auto) 1.8 x10^3/uL (1.0-4.8) Monocytes # (Auto) 0.6 x10^3/uL (0.0-1.1) Eosinophils # (Auto) 0.2 x10^3/uL (0.0-0.7) Basophils # (Auto) 0.0 x10^3/uL (0.0-0.2) Heparin Anti-Xa Act, Unfractionated 0.19 IU/mL (0.30-0.70) Sodium Level 141 mmol/L (136-145) Potassium Level 3.8 mmol/L (3.5-5.1) Chloride Level 102 mmol/L (98-107) Carbon Dioxide Level 34 mmol/L (21-32) Anion Gap 5 (6-14) Blood Urea Nitrogen 8 mg/dL (7-20) Creatinine 0.6 mg/dL (0.6-1.0) Estimated GFR (Cockcroft-Gault) 98.5 Glucose Level 107 mg/dL (70-99) Calcium Level 8.5 mg/dL (8.5-10.1) Magnesium Level 2.1 mg/dL (1.8-2.4) Test 11/30/18 10:05 11/30/18 12:20 11/30/18 17:20 11/30/18 17:21 Heparin Anti-Xa Act, Unfractionated 0.39 IU/mL (0.30-0.70) 0.25 IU/mL (0.30-0.70) Glucose (Fingerstick) 113 mg/dL (70-99) 84 mg/dL (70-99) Test 11/30/18 20:27 12/01/18 00:15 Glucose (Fingerstick) 136 mg/dL (70-99) Heparin Anti-Xa Act, Unfractionated 0.27 IU/mL (0.30-0.70) Laboratory Tests Test 11/30/18 08:28 11/30/18 10:05 11/30/18 12:20 11/30/18 17:20 Glucose (Fingerstick) 93 mg/dL (70-99) 113 mg/dL (70-99) Heparin Anti-Xa Act, Unfractionated 0.39 IU/mL (0.30-0.70) 0.25 IU/mL (0.30-0.70) Test 11/30/18 17:21 11/30/18 20:27 12/01/18 00:15 Glucose (Fingerstick) 84 mg/dL (70-99) 136 mg/dL (70-99) Heparin Anti-Xa Act, Unfractionated 0.27 IU/mL (0.30-0.70) Medications Current Medications Aspirin (Children'S Aspirin) 324 mg 1X ONCE PO Last administered on 11/28/18 23:46; Start 11/29/18 at 00:00; Stop 11/29/18 at 00:01; Status DC Nitroglycerin (Nitrostat) 0.4 mg PRN Q5MIN PRN SL CP RATING > 1/10 Last administered on 11/28/18at 23:47; Start 11/28/18 at 23:45; Stop 11/29/18 at 23:44 ; Status DC Morphine Sulfate (Morphine Sulfate) 2 mg 1X ONCE IV Last administered on at 23:48; Start 11/29/18 at 00:00; Stop 11/29/18 at 00:01; Status DC Sodium Chloride 1,000 ml @ 100 mls/hr Q10H IV Last administered on 11/28/18at 23:48; Start 11/29/18 at 00:00; Stop 11/29/18 at 09:59; Status DC Ondansetron HCl (Zofran) 4 mg 1X ONCE IV Last administered on 11/28/18at 23:47 ; Start 11/29/18 at 00:00; Stop 11/29/18 at 00:01; Status DC Potassium Chloride (Klor-Con) 40 meq 1X ONCE PO Last administered on at 00:25; Start 11/29/18 at 01:00; Stop 11/29/18 at 01:01; Status DC Morphine Sulfate (Morphine Sulfate) 2 mg 1X ONCE IV Last administered on 01:17; Start 11/29/18 at 01:00; Stop 11/29/18 at 01:01; Status DC Ondansetron HCl (Zofran) 4 mg PRN Q8HRS PRN IV NAUSEA/VOMITING 1ST CHOICE Last administered on 11/29/18at 11:22; Start 11/29/18 at 01:00; Stop 11/30/18 at 00:59 ; Status DC Morphine Sulfate (Morphine Sulfate) 2 mg PRN Q2HR PRN IV SEVERE PAIN Last administered on 11/29/18 23:01; Start 11/29/18 at 01:00; Stop 11/30/18 at 00:59 ; Status DC Sodium Chloride 1,000 ml @ 125 mls/hr Q8H IV Last administered on 11/29/18 12 :23; Start 11/29/18 at 01:00; Stop 11/29/18 at 15:50; Status DC Clonidine HCl (Catapres) 0.2 mg 1X ONCE PO Last administered on 11/29/18 01: 18; Start 11/29/18 at 01:30; Stop 11/29/18 at 01:31; Status DC Heparin Sodium (Porcine) (Heparin Sodium) 4,000 unit 1X ONCE IV Last administered on 11/29/18 01:20; Start 11/29/18 at 01:30; Stop 11/29/18 at 01:31 ; Status DC Heparin Sodium/ Dextrose 500 ml @ 0 mls/hr CONT PRN IV SEE I/O RECORD Last administered on 11/29/18at 01:21; Start 11/29/18 at 01:00; Stop 11/29/18 at 18:42 ; Status DC Heparin Sodium (Porcine) (Heparin Sodium) 1,800 unit PRN Q6HRS PRN IV FOR UFH LEVEL LESS THAN 0.2 Last administered on 11/30/18at 04:38; Start 11/29/18 at 01: 00 Trazodone HCl (Desyrel) 150 mg QHS PO Last administered on 11/30/18at 20:28; Start 11/29/18 at 21:00 Insulin Glargine (Lantus) 8 units QHS SQ ; Start 11/29/18 at 21:00 Insulin Human Lispro (HumaLOG) 0-7 UNITS TIDWMEALS SQ ; Start 11/29/18 at 08:00 Dextrose (Dextrose 50%-Water Syringe) 12.5 gm PRN Q15MIN PRN IV SEE COMMENTS; Start 11/29/18 at 08:00 Magnesium Sulfate 50 ml @ 25 mls/hr 1X ONCE IV Last administered on 11/29/18at 12:22; Start 11/29/18 at 08:30; Stop 11/29/18 at 10:29; Status DC Info (Anti-Coagulation Monitoring By Pharmacy) 1 each PRN DAILY PRN MC SEE COMMENTS Last administered on 11/29/18at 11:16; Start 11/29/18 at 08:15 Info (Anti-Coagulation Monitoring By Pharmacy) 1 each PRN DAILY PRN MC SEE COMMENTS; Start 11/29/18 at 08:30; Status Cancel Fentanyl Citrate (Fentanyl 2ml Vial) 100 mcg STK-MED ONCE .ROUTE ; Start at 08:28; Stop 11/29/18 at 08:29; Status DC Midazolam HCl (Versed) 5 mg STK-MED ONCE .ROUTE ; Start 11/29/18 at 08:28; Stop 11/29/18 at 08:29; Status DC Heparin Sodium/ Sodium Chloride (HEPARIN for ARTERIAL LINE FLUSH) 1,000 unit 1X ONCE IART Last administered on 11/29/18at 10:36; Start 11/29/18 at 08:45; Stop 11/29/18 at 08:50; Status DC Heparin Sodium/ Sodium Chloride (HEPARIN for ARTERIAL LINE FLUSH) 1,000 unit 1X ONCE IART Last administered on 11/29/18at 10:36; Start 11/29/18 at 08:45; Stop 11/29/18 at 08:50; Status DC Midazolam HCl (Versed) 5 mg 1X ONCE IV Last administered on 11/29/18at 10:39; Start 11/29/18 at 08:45; Stop 11/29/18 at 08:50; Status DC Fentanyl Citrate (Fentanyl 2ml Vial) 100 mcg 1X ONCE IV Last administered on at 10:38; Start 11/29/18 at 08:45; Stop 11/29/18 at 08:50; Status DC Iohexol (Omnipaque 300 Mg/ml) 100 ml 1X ONCE IART Last administered on at 10:38; Start 11/29/18 at 08:45; Stop 11/29/18 at 08:50; Status DC Lidocaine HCl (Lidocaine 1% 20ml Vial) 20 ml 1X ONCE INJ Last administered on 11/29/18at 08:45; Start 11/29/18 at 08:45; Stop 11/29/18 at 08:50; Status DC Iohexol (Omnipaque 300 Mg/ml) 100 ml STK-MED ONCE .ROUTE ; Start 11/29/18 at 09: 33; Stop 11/29/18 at 09:34; Status DC Bivalirudin (Angiomax) 250 mg STK-MED ONCE IV ; Start 11/29/18 at 09:44; Stop at 09:45; Status DC Bivalirudin (Angiomax) 250 mg 1X ONCE IV Last administered on 11/29/18at 10:37 ; Start 11/29/18 at 09:47; Stop 11/29/18 at 09:58; Status DC Iohexol (Omnipaque 300 Mg/ml) 100 ml STK-MED ONCE .ROUTE ; Start 11/29/18 at 09: 51; Stop 11/29/18 at 09:52; Status DC Clopidogrel Bisulfate (Plavix) 75 mg STK-MED ONCE .ROUTE ; Start 11/29/18 at 10: 16; Stop 11/29/18 at 10:17; Status DC Aspirin (Daniela Aspirin) 325 mg STK-MED ONCE .ROUTE ; Start 11/29/18 at 10:16; Stop 11/29/18 at 10:17; Status DC Nitroglycerin (Nitroglycerin) 200 mcg STK-MED ONCE .ROUTE ; Start 11/29/18 at 10 :17; Stop 11/29/18 at 10:18; Status DC Nitroglycerin (Nitroglycerin) 200 mcg 1X ONCE ICAR Last administered on at 10:36; Start 11/29/18 at 10:30; Stop 11/29/18 at 10:31; Status DC Clopidogrel Bisulfate (Plavix) 600 mg 1X ONCE PO Last administered on at 10:36; Start 11/29/18 at 10:30; Stop 11/29/18 at 10:31; Status DC Iohexol (Omnipaque 300 Mg/ml) 100 ml STK-MED ONCE .ROUTE ; Start 11/29/18 at 10: 21; Stop 11/29/18 at 10:22; Status DC Aspirin (Daniela Aspirin) 325 mg 1X ONCE PO Last administered on 11/29/18at 10:45 ; Start 11/29/18 at 10:45; Stop 11/29/18 at 10:46; Status DC Iohexol (Omnipaque 300 Mg/ml) 100 ml STK-MED ONCE .ROUTE ; Start 11/29/18 at 11: 14; Stop 11/29/18 at 11:15; Status DC Lidocaine HCl (Lidocaine 1% 20ml Vial) 20 ml STK-MED ONCE .ROUTE ; Start at 11:14; Stop 11/29/18 at 11:15; Status DC Heparin Sodium/ Sodium Chloride 1,000 ml @ As Directed STK-MED ONCE .ROUTE ; Start 11/29/18 at 11:15; Stop 11/29/18 at 11:16; Status DC Sodium Chloride (Normal Saline Flush) 3 ml QSHIFT PRN IV AFTER MEDS AND BLOOD DRAWS; Start 11/29/18 at 12:30 Sodium Chloride 1,000 ml @ 75 mls/hr [id number] IV ; Start 11/29/18 at 12:20; Stop 11/29/18 at 18:19; Status DC Aspirin (Ecotrin) 325 mg DAILYWBKFT PO Last administered on 11/30/18at 08:25; Start 11/30/18 at 08:00 Clopidogrel Bisulfate (Plavix) 75 mg DAILYWBKFT PO Last administered on at 08:25; Start 11/30/18 at 08:00 Lisinopril (Prinivil) 5 mg DAILY PO Last administered on 11/30/18at 08:27; Start 11/29/18 at 13:00; Stop 11/30/18 at 17:52; Status DC Acetaminophen (Tylenol) 650 mg PRN Q6HRS PRN PO MILD PAIN / TEMP; Start at 12:30 Fentanyl Citrate (Fentanyl 2ml Vial) 50 mcg PRN Q1HR PRN IV MODERATE OR SEVERE PAIN Last administered on 11/30/18at 21:25; Start 11/29/18 at 12:30 Nitroglycerin (Nitrostat) 0.4 mg PRN Q5MIN PRN SL CHEST PAIN; Start 11/29/18 at 12:30 Amiodarone HCl 150 mg/Dextrose 103 ml @ 600 mls/hr 1X PRN PRN IV FOR VENTRICULAR TACHYCARDIA; Start 11/29/18 at 12:30 Lidocaine HCl (Lidocaine HCl 2% Abboject) 100 mg 1X PRN PRN IV FOR VENTRICULAR TACHYCARDIA; Start 11/29/18 at 12:30 Atropine Sulfate (ATROPINE 0.5mg SYRINGE) 0.5 mg PRN 1X PRN IV BRADYCARDIA; Start 11/29/18 at 12:30 Hydralazine HCl (Apresoline Inj) 10 mg PRN Q4HRS PRN IVP ELEVATED BP, SEE COMMENTS; Start 11/29/18 at 18:15 Heparin Sodium/ Dextrose 500 ml @ 0 mls/hr CONT PRN IV SEE I/O RECORD Last administered on 11/29/18at 20:31; Start 11/29/18 at 18:45 Heparin Sodium (Porcine) (Heparin Sodium) 1,750 unit PRN Q6HRS PRN IV FOR UFH LEVEL LESS THAN 0.2; Start 11/29/18 at 18:45 Metoprolol Succinate (Toprol Xl) 25 mg DAILY PO Last administered on 11/30/18at 11:02; Start 11/30/18 at 09:00 Lisinopril (Prinivil) 20 mg DAILY PO ; Start 12/01/18 at 09:00 Active Scripts Active Metoprolol Succinate ( Xl ) (Metoprolol Succinate) 25 Mg Tab.er.24h 1 Tab PO DAILY 30 Days Chantix (Varenicline Tartrate) 0.5 Mg Tablet 0.5 Mg PO DIRECTED 42 Days 0.5 MG PO DAILY X3 DAY, 0.5 MG PO BID X4 DAY, 1 MG PO BID UNTIL END OF TREATMENT Disp 11 0.5mg tabs and 42 1mg tabs Aspirin Ec (Aspirin) 325 Mg Tablet.dr 325 Mg PO DAILYWBKFT 30 Days Lisinopril 5 Mg Tablet 5 Mg PO DAILY 30 Days Clopidogrel (Clopidogrel Bisulfate) 75 Mg Tablet 75 Mg PO DAILYWBKFT 30 Days Reported Levsin-Sl (Hyoscyamine Sulfate) 0.125 Mg Tab.subl 1-2 Tab SL PRN Q4HRS Benzonatate 100 Mg Capsule 100 Mg PO TID PRN Potassium Chloride 10 Meq Tablet.er 10 Meq PO BID Fluoxetine Hcl 40 Mg Capsule 60 Mg PO DAILY Metformin Hcl 500 Mg Tablet 500 Mg PO DAILYWBKFT Hydrochlorothiazide Capsule (Hydrochlorothiazide) 12.5 Mg Capsule 12.5 Mg PO DAILY Requip (Ropinirole Hcl) 0.5 Mg Tablet 0.25 Mg PO BID Protonix (Pantoprazole Sodium) 20 Mg Tablet.dr 40 Mg PO DAILY Hydroxyzine Hcl 25 Mg Tablet 25 Mg PO PRN Q8HRS PRN Cyclobenzaprine Hcl 5 Mg Tablet 5 Mg PO TID Trazodone Hcl 150 Mg Tablet 1 Tab PO QHS Vitals/I & O Vital Sign - Last 24 Hours 11/30/18 11/30/18 11/30/18 11/30/18 08:00 08:00 08:27 09:00 Temp 98.4 98.4 Pulse 72 71 68 Resp 12 12 B/P (MAP) 149/81 (103) 149/81 141/85 (103) Pulse Ox 95 98 O2 Delivery Nasal Cannula Nasal Cannula Nasal Cannula O2 Flow Rate 3.0 3.0 3.0 11/30/18 11/30/18 11/30/18 11/30/18 10:00 11:00 11:02 12:00 Pulse 76 71 86 Resp 12 12 B/P (MAP) 136/83 (100) 126/70 (88) 136/63 Pulse Ox 96 96 O2 Delivery Nasal Cannula Nasal Cannula Nasal Cannula O2 Flow Rate 3.0 3.0 3.0 11/30/18 11/30/18 11/30/18 11/30/18 12:00 16:00 18:18 18:20 Temp 99.2 98.7 97.4 99.2 98.7 97.4 Pulse 67 62 62 Resp 14 14 16 B/P (MAP) 142/86 (104) 119/78 (92) 138/83 (101) Pulse Ox 94 95 96 O2 Delivery Nasal Cannula Nasal Cannula Nasal Cannula Nasal Cannula O2 Flow Rate 3.0 3.0 3.0 3.0 11/30/181819 1811/30/18 19:14 20:00 21:25 21:55 Temp 97.7 97.7 Pulse 61 Resp 16 20 18 B/P (MAP) 130/84 (99) Pulse Ox 99 99 99 O2 Delivery Nasal Cannula Nasal Cannula Nasal Cannula Nasal Cannula O2 Flow Rate 3.0 3.0 3.0 3.0 11/30/18 12/01/18 12/01/18 23:00 03:00 07:00 Temp 97.9 98.0 97.7 97.9 98.0 97.7 Pulse 56 68 71 Resp 16 16 16 B/P (MAP) 126/88 (101) 117/66 (83) 137/71 (93) Pulse Ox 96 97 93 O2 Delivery Nasal Cannula Nasal Cannula Nasal Cannula O2 Flow Rate 3.0 3.0 3.0 Intake and Output 11/30/18 11/30/18 12/01/18 15:00 23:00 07:00 Intake Total 326 ml 0 ml Output Total 0 ml Balance 0 ml 326 ml 0 ml RASHEED WONG MD Dec 01, 2018 08:00
[2018-12-01] MEDS: ASPIRIN ENTERIC COATED 325 MG TABLET.DR. PO SCH (08:38)
[2018-12-01] MEDS: CLOPIDOGREL BISULFATE 75 MG TABLET PO SCH (08:38)
[2018-12-01] MEDS: LISINOPRIL 20 MG TABLET PO SCH (08:38)
[2018-12-01] MEDS: METOPROLOL SUCC 24HR ER 25 MG TAB.ER.24H. PO SCH (08:39)
[2018-12-01] MEDS ORDERED: LIDOCAINE 1% Multi-Dose 20 ML VIAL. ONE (12:09)
[2018-12-01] MEDS ORDERED: IODIXANOL 320 MG/ML 100 ML VIAL. ONE (13:26)
[2018-12-01] MEDS ORDERED: MIDAZOLAM HCL/PF 2 MG/2 ML VIAL. ONE (13:54)
[2018-12-01] MEDS ORDERED: VERAPAMIL 5 MG/2 ML VIAL. ONE (13:54)
[2018-12-01] MEDS: ANTI-COAG MONITOR BY PHARMACY. MC PRN (13:54)
[2018-12-01] MEDS ORDERED: fentaNYL PF VIAL 100 MCG/2 ML VIAL ONE (13:54)
[2018-12-01] MEDS ORDERED: HEPARIN for IV BOLUS 10,000 UNIT/10 ML VIAL. ONE (13:55)
[2018-12-01] MEDS ORDERED: NITROGLYCERIN 200 MCG/2 ML SYRINGE FOR CATH/VASC LAB. ONE (13:55)
[2018-12-01] MEDS ORDERED: fentaNYL PF VIAL 100 MCG/2 ML VIAL IV ONE (14:45)
[2018-12-01] MEDS ORDERED: LIDOCAINE 1% Multi-Dose 20 ML VIAL. INJ ONE (14:45)
[2018-12-01] MEDS ORDERED: VERAPAMIL 5 MG/2 ML VIAL. IART ONE (14:45)
[2018-12-01] MEDS ORDERED: MIDAZOLAM HCL/PF 2 MG/2 ML VIAL. IV ONE (14:45)
[2018-12-01] MEDS ORDERED: HEPARIN for IV BOLUS 10,000 UNIT/10 ML VIAL. IV ONE (14:45)
[2018-12-01] MEDS ORDERED: NITROGLYCERIN 200 MCG/2 ML SYRINGE FOR CATH/VASC LAB. IART ONE (14:45)
[2018-12-01] MEDS ORDERED: CONTRAST GIVEN. MC PRN (14:45)
[2018-12-01] MEDS ORDERED: IOHEXOL 300 MG/ML 100ML VIAL. IART ONE (14:45)
[2018-12-01] MEDS ORDERED: HEPARIN for IV BOLUS 10,000 UNIT/10 ML VIAL. IART ONE (14:45)
--- NOTE | 2018-12-01 15:49 | NUR ---
Received call from nursing hospitality house supervisor that pt will be transferred to ICU post cath. Report given to [facility]. Pt belongings taken to ICU.
[2018-12-01] MEDS: fentaNYL PF VIAL 100 MCG/2 ML VIAL IV PRN ×2 (16:59→20:34)
--- NOTE | 2018-12-01 18:00 | CARD ---
MR#: [id number] Date of Study: 12/01/2018 Ordering Physician: VIRGINIA KESSLER, Referring Physician: JUAN J GO, Tech: RT Rossy (R) APPROVED REPORT Technologist: Alex Joseph RT (R) Nurse: Milady Portillo R.N. Procedure(s) performed: Moderate sedation: 69 minutes Fluoro time: 6.3 minutes Dose: 61 Gycm2 Contrast: 112 cc C, Coronary angiography, PCI of the RCA HISTORY The patient is a 73 year-old female with a history of : diabetes mellitus with treatment, coronary ar ariel disease, tobacco history() , hypertension, dyslipidemia. INDICATION The indication(s) include : non-STEMI , Persistent chest pain despite POBA of the LCx stent and tropo tree peak of 110.. [facility] Clinical Frailty Scale [facility] Clinical Frailty Scale: Vulnerable Heart Failure Heart Failure: Yes If Yes, Newly Diagnosed: Yes If Yes, HF Type: Systolic If Yes, NYHA Class: Class II PROCEDURE NARRATIVE INFORMED CONSENT: After explaining the risks and benefits of the procedure and alternatives, informed consent was obtained. The patient was brought electively to the cardiac catheterization lab. A timeout was performed confi rming the patient's name, date of , procedure, and site of procedure. All necessary personnel w ere wearing the appropriate protective equipment and radiation monitor devices. (See nursing notes for medications administered). ACCESS: The right wrist was sterilely prepped and draped in the usual fashion. The right wrist was infiltrat ed with 1 mL of 2% lidocaine for subcutaneous anesthesia. A 6 Setswana Terumo glide sheath was inserte d into the right radial artery without difficulty. Initial attempts to advance a J-tipped guidewire o nena the right subclavian axillary junction was met with resistance. Therefore the J-tipped guidewire was removed and a limited angiogram was performed which revealed no obvious obstruction but a small p ossible dissection. Therefore an glide wire was used to try to navigate the dissection plane but this was also met with resistance and therefore due to the dissection plane being persistent further atte mpts to perform the cardiac catheterization through the right radial approach was deferred. Right ana in access was obtained in the common femoral artery. Limited angiography at the site of the common fe moral artery demonstrated an arteriovenous fistula from the previous cardiac catheterization 2 days p rior at the site of the Angio-Seal deployment. CORONARY ANGIOGRAPHY: Right and left coronary angiography was performed using a 6Fr JL4 and JR4 catheters. Left ventricul ar end diastolic pressure was obtained with a pigtail catheter and pullback was performed. All hill ter exchanges and advancements were performed over a guidewire. FINDINGS: HEMODYNAMICS: LVEDP 22 mm Hg No gradient on LV to aortic pullback. AO: 128/78 CORONARY ANGIOGRAPHY: LM is a large caliber vessel with normal angiographic appearance. LAD is a moderate caliber vessel with a proximal 20% stenosis in the mid 40% stenosis. LCx is a moderate caliber heavily calcified severely tortuous vessel with a proximal 50% stenosis, a mid 70% in-stent restenosis. OM1 is a moderate caliber heavily calcified vessel with a previously placed stent with a proximally 7 0% in-stent restenosis. This was a vessel that was previously angioplastied. RCA is a small caliber vessel with previous stents placed from the proximal to the distal vessel. The re is a 90% in-stent restenosis in the mid segment. The vessel has diffuse negative remodeling. RPDA is a small caliber vessel with mild diffuse disease. The RPL is ostially occluded and is seen to fill via left to right collaterals from the distal left circumflex. Interventional technique: The patient was given heparin for an ACT greater than 200. The patient was previously on aspirin and clopidogrel therapy. Through a 6 Setswana JR4 guide catheter a pro-water wire was advanced to the dista l RCA. Balloon angioplasty was performed with a 2.0 x 12 mm balloon at 14 chi. There was less than 30 % residual stenosis in the mid RCA in-stent restenosis. Due to the small caliber the vessel further i ntervention was deferred. Due to significant proximal tortuosity and MARC-3 flow in the left circumfl ex it was felt that the chest pain the patient was having was not related to the in-stent restenosis in that territory and therefore further intervention was deferred. COMPLICATIONS: 1. 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 2. 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 CLOSURE: Prior to closure of the access sites intra-arterial pressure measurements at the level of the right r adial artery and the ascending aorta were the same. Further, supravalvular aortography revealed a bov ine arch and no obvious evidence of flow limitation to the right carotid or axillary vessels. No sign ificant flow limitation was noted to the right upper extremity. At case completion the right radial s catherine was removed and a Terumo radial band was applied with 13 ml of air. The right common femoral a rterial sheath was removed via manual compression. Conclusion 1. Mildly elevated left ventricular filling pressures with an LVEDP of 18 2. Severe three-vessel coronary disease with patent flow in the distal left circumflex after balloon angioplasty from 48 hours prior 3. Successful balloon angioplasty of the right coronary artery 4. New finding of right common femoral arterial AV fistula likely at the site of the previously place d Angio-Seal device 5. Probable iatrogenic right subclavian artery dissection without compromise to flow in the carotid o r axillary brachial vessels. Recommendations Continue aspirin 81 mg daily Continue Plavix 70 femoral grams daily We will restart heparin without a bolus after groin hemostasis Admit to ICU with close neuro checks and consider further evaluation if needed based on symptoms. Patient's family updated regarding critical nature of her coronary disease and peripheral vascular is sues and strongly urged the patient to stop smoking. Signed by : Virginia Kessler, Electronically Approved : 12/01/2018 18:00:34
--- NOTE | 2018-12-01 19:31 | NUR ---
Patient admitted to ICU around 1600 from [facility]. Sheath present in R Fem. TR band on R radial. 13ml present on admission. Orders received from Dr. Kessler to re-start Heparin gtt two hours after femoral sheath pulled. Patient's family at bedside. Aware of condition. Dinner ordered, patient tolerated well. Educated on not lifting her head off pillow, moving/bending her leg until 2100. Vascular assessments done. Q1 hour neuro checks done per order by Dr. Kessler. Will switch to Q2 hr neuro checks on PM shift. See vascular and hemodynamic assessments. Heparin gtt will also be re-started on PM shift-- notified Lauro JONES of order and rate to start at. UFH's ordered for 0200 and 0800. Patient has opsite and gauze on R fem site-- no bleeding, no sign of hematoma. Opsite on R rad site and no site of hematoma or bleeding. Pulses all palpable. Patient a/o x4 throughout shift. Dr. Kessler notified of HR 45-50, no new orders received.
[2018-12-01] MEDS: HEPARIN 25,000UTS/500ML PREMIX 500 ML IV PRN (20:26)
[2018-12-01] MEDS: INSULIN GLARGINE 300 UNITS/3 ML INSULN.PEN. SQ SCH (21:00)
[2018-12-01] MEDS: traZODone 100 MG TABLET. PO SCH (22:35)
[2018-12-02] VITALS (17 sets, daily range): BP systolic 101–159; BP diastolic 61–89
[2018-12-02] MEDS: fentaNYL PF VIAL 100 MCG/2 ML VIAL IV PRN ×3 (02:57→21:46)
[2018-12-02 04:30] LABS: HEMATOCRIT 40.9 % (36.0-47.0); HEMOGLOBIN 12.8 g/dL (12.0-15.5); RED BLOOD COUNT 4.79 x10^6/uL (3.50-5.40); RED CELL DISTRIBUTION WIDTH 16.8 % (11.5-14.5); WHITE BLOOD COUNT 7.9 x10^3/uL (4.0-11.0)
[2018-12-02] MEDS: ANTI-COAG MONITOR BY PHARMACY. MC PRN (07:47)
[2018-12-02] MEDS: INSULIN LISPRO 300 UNITS/3 ML INSULN.PEN. SQ SCH ×3 (08:00→17:00)
[2018-12-02] MEDS: CLOPIDOGREL BISULFATE 75 MG TABLET PO SCH (08:09)
[2018-12-02] MEDS: ASPIRIN ENTERIC COATED 325 MG TABLET.DR. PO SCH (08:09)
[2018-12-02] MEDS: LISINOPRIL 20 MG TABLET PO SCH (08:10)
[2018-12-02] MEDS: METOPROLOL SUCC 24HR ER 25 MG TAB.ER.24H. PO SCH (08:10)
--- NOTE | 2018-12-02 09:09 | PDOC ---
PROGRESS NOTES Chief Complaint Chief Complaint A/P: NSTEMI - with highly elevated troponins, cath results with circumflex angioplasty only. Troponin over 100 post cath Malignant HTN - better, cont meds Myopathy with several statins in the past - will need to consider a PCSK9 inhibitor repatha or praluent Smoker - relapsed, will need new script for chantix DM - will place on sliding scale insulin CAD; s/p angioplasty to LCx in-stent restenosis and distal lesion. LAD with moderate disease. RCA restenosis with 90% midportion lesion. Ischemic Cardiomyopathy - LVEF 40%. Currently compensated today Hyperlipidemia; hx stain intolerance as above History of Present Illness History of Present Illness Patient is a 73-year-old female w/PMHx smoker (quit), Coronary artery disease, status post multiple stents, most recently approximately 4 years ago, Hypertension, Diabetes, Dyslipidemia who presents with 2 day history of left- sided chest pain. Patient states that at times it radiates to her left shoulder. She describes pain as a lot of pressure and tightness. She rates pain at a 9 out of 10 currently. She states that she has been nauseated but has not vomited. She denies any diaphoresis. Patient states the pain is worsened with exertion. She states that onset of pain was at rest. Patient does have significant cardiac history with history of 5 stents. Troponin elevated from 0.08 to 11 overnight. 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 Successful opening of this lesion and a more distal lesion with balloon angioplasty. Moderate diffuse disease in the left anterior descending as noted as well. Her pain improved. Unfortunately still having pain and troponin went much higher than expected. 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 Pain is better today Plan: Optimized meds F/u Cardiology recs Cardiac rehab on d/c Vitals Vitals Vital Signs Date Time Temp Pulse Resp B/P (MAP) Pulse Ox O2 Delivery O2 Flow Rate FiO2 12/02/18 09:00 98.8 57 16 101/62 (75) Nasal Cannula 4.0 98.8 12/02/18 08:00 88 Physical Exam General: Alert, Oriented X3, Cooperative, No acute distress Heart: Regular rate (SR) Lungs: Wheezing Abdomen: No tenderness Extremities: No cyanosis Skin: No breakdown, No significant lesion Labs LABS Laboratory Tests Test 12/01/18 11:16 12/01/18 14:31 12/01/18 15:44 12/01/18 22:33 Glucose (Fingerstick) 106 mg/dL (70-99) 106 mg/dL (70-99) Activated Clotting Time 192 sec (92-181) 200 sec (92-181) Test 12/02/18 02:30 12/02/18 07:44 White Blood Count 7.9 x10^3/uL (4.0-11.0) Red Blood Count 4.79 x10^6/uL (3.50-5.40) Hemoglobin 12.8 g/dL (12.0-15.5) Hematocrit 40.9 % (36.0-47.0) Mean Corpuscular Volume 85 fL (79-100) Mean Corpuscular Hemoglobin 27 pg (25-35) Mean Corpuscular Hemoglobin Concent 31 g/dL (31-37) Red Cell Distribution Width 16.8 % (11.5-14.5) Platelet Count 179 x10^3/uL (140-400) Heparin Anti-Xa Act, Unfractionated 0.16 IU/mL (0.30-0.70) Glucose (Fingerstick) 124 mg/dL (70-99) Assessment and Plan Assessmemt and Plan Problems Medical Problems: (1) Non-STEMI (non-ST elevated myocardial infarction) Status: Acute Comment Review of Relevant I have reviewed the following items dian (where applicable) has been applied. Labs Laboratory Tests Test 11/30/18 10:05 11/30/18 12:20 11/30/18 17:20 11/30/18 17:21 Heparin Anti-Xa Act, Unfractionated 0.39 IU/mL (0.30-0.70) 0.25 IU/mL (0.30-0.70) Glucose (Fingerstick) 113 mg/dL (70-99) 84 mg/dL (70-99) Test 11/30/18 20:27 12/01/18 00:15 12/01/18 08:00 12/01/18 08:07 Glucose (Fingerstick) 136 mg/dL (70-99) 101 mg/dL (70-99) Heparin Anti-Xa Act, Unfractionated 0.27 IU/mL (0.30-0.70) 0.39 IU/mL (0.30-0.70) Test 12/01/18 11:16 12/01/18 14:31 12/01/18 15:44 12/01/18 22:33 Glucose (Fingerstick) 106 mg/dL (70-99) 106 mg/dL (70-99) Activated Clotting Time 192 sec (92-181) 200 sec (92-181) Test 12/02/18 02:30 12/02/18 07:44 White Blood Count 7.9 x10^3/uL (4.0-11.0) Red Blood Count 4.79 x10^6/uL (3.50-5.40) Hemoglobin 12.8 g/dL (12.0-15.5) Hematocrit 40.9 % (36.0-47.0) Mean Corpuscular Volume 85 fL (79-100) Mean Corpuscular Hemoglobin 27 pg (25-35) Mean Corpuscular Hemoglobin Concent 31 g/dL (31-37) Red Cell Distribution Width 16.8 % (11.5-14.5) Platelet Count 179 x10^3/uL (140-400) Heparin Anti-Xa Act, Unfractionated 0.16 IU/mL (0.30-0.70) Glucose (Fingerstick) 124 mg/dL (70-99) Laboratory Tests Test 12/01/18 11:16 12/01/18 14:31 12/01/18 15:44 12/01/18 22:33 Glucose (Fingerstick) 106 mg/dL (70-99) 106 mg/dL (70-99) Activated Clotting Time 192 sec (92-181) 200 sec (92-181) Test 12/02/18 02:30 12/02/18 07:44 White Blood Count 7.9 x10^3/uL (4.0-11.0) Red Blood Count 4.79 x10^6/uL (3.50-5.40) Hemoglobin 12.8 g/dL (12.0-15.5) Hematocrit 40.9 % (36.0-47.0) Mean Corpuscular Volume 85 fL (79-100) Mean Corpuscular Hemoglobin 27 pg (25-35) Mean Corpuscular Hemoglobin Concent 31 g/dL (31-37) Red Cell Distribution Width 16.8 % (11.5-14.5) Platelet Count 179 x10^3/uL (140-400) Heparin Anti-Xa Act, Unfractionated 0.16 IU/mL (0.30-0.70) Glucose (Fingerstick) 124 mg/dL (70-99) Medications Current Medications Aspirin (Children'S Aspirin) 324 mg 1X ONCE PO Last administered on 11/28/18 23:46; Start 11/29/18 at 00:00; Stop 11/29/18 at 00:01; Status DC Nitroglycerin (Nitrostat) 0.4 mg PRN Q5MIN PRN SL CP RATING > 1/10 Last administered on 11/28/18at 23:47; Start 11/28/18 at 23:45; Stop 11/29/18 at 23:44 ; Status DC Morphine Sulfate (Morphine Sulfate) 2 mg 1X ONCE IV Last administered on at 23:48; Start 11/29/18 at 00:00; Stop 11/29/18 at 00:01; Status DC Sodium Chloride 1,000 ml @ 100 mls/hr Q10H IV Last administered on 11/28/18 23:48; Start 11/29/18 at 00:00; Stop 11/29/18 at 09:59; Status DC Ondansetron HCl (Zofran) 4 mg 1X ONCE IV Last administered on 11/28/18at 23:47 ; Start 11/29/18 at 00:00; Stop 11/29/18 at 00:01; Status DC Potassium Chloride (Klor-Con) 40 meq 1X ONCE PO Last administered on at 00:25; Start 11/29/18 at 01:00; Stop 11/29/18 at 01:01; Status DC Morphine Sulfate (Morphine Sulfate) 2 mg 1X ONCE IV Last administered on at 01:17; Start 11/29/18 at 01:00; Stop 11/29/18 at 01:01; Status DC Ondansetron HCl (Zofran) 4 mg PRN Q8HRS PRN IV NAUSEA/VOMITING 1ST CHOICE Last administered on 11/29/18at 11:22; Start 11/29/18 at 01:00; Stop 11/30/18 at 00:59 ; Status DC Morphine Sulfate (Morphine Sulfate) 2 mg PRN Q2HR PRN IV SEVERE PAIN Last administered on 11/29/18at 23:01; Start 11/29/18 at 01:00; Stop 11/30/18 at 00:59 ; Status DC Sodium Chloride 1,000 ml @ 125 mls/hr Q8H IV Last administered on 11/29/18at 12 :23; Start 11/29/18 at 01:00; Stop 11/29/18 at 15:50; Status DC Clonidine HCl (Catapres) 0.2 mg 1X ONCE PO Last administered on 11/29/18at 01: 18; Start 11/29/18 at 01:30; Stop 11/29/18 at 01:31; Status DC Heparin Sodium (Porcine) (Heparin Sodium) 4,000 unit 1X ONCE IV Last administered on 11/29/18at 01:20; Start 11/29/18 at 01:30; Stop 11/29/18 at 01:31 ; Status DC Heparin Sodium/ Dextrose 500 ml @ 0 mls/hr CONT PRN IV SEE I/O RECORD Last administered on 11/29/18at 01:21; Start 11/29/18 at 01:00; Stop 11/29/18 at 18:42 ; Status DC Heparin Sodium (Porcine) (Heparin Sodium) 1,800 unit PRN Q6HRS PRN IV FOR UFH LEVEL LESS THAN 0.2 Last administered on 11/30/18at 04:38; Start 11/29/18 at 01: 00 Trazodone HCl (Desyrel) 150 mg QHS PO Last administered on 12/01/18at 22:35; Start 11/29/18 at 21:00 Insulin Glargine (Lantus) 8 units QHS SQ ; Start 11/29/18 at 21:00 Insulin Human Lispro (HumaLOG) 0-7 UNITS TIDWMEALS SQ ; Start 11/29/18 at 08:00 Dextrose (Dextrose 50%-Water Syringe) 12.5 gm PRN Q15MIN PRN IV SEE COMMENTS; Start 11/29/18 at 08:00 Magnesium Sulfate 50 ml @ 25 mls/hr 1X ONCE IV Last administered on 11/29/18at 12:22; Start 11/29/18 at 08:30; Stop 11/29/18 at 10:29; Status DC Info (Anti-Coagulation Monitoring By Pharmacy) 1 each PRN DAILY PRN MC SEE COMMENTS Last administered on 12/02/18at 07:47; Start 11/29/18 at 08:15 Info (Anti-Coagulation Monitoring By Pharmacy) 1 each PRN DAILY PRN MC SEE COMMENTS; Start 11/29/18 at 08:30; Status Cancel Fentanyl Citrate (Fentanyl 2ml Vial) 100 mcg STK-MED ONCE .ROUTE ; Start at 08:28; Stop 11/29/18 at 08:29; Status DC Midazolam HCl (Versed) 5 mg STK-MED ONCE .ROUTE ; Start 11/29/18 at 08:28; Stop 11/29/18 at 08:29; Status DC Heparin Sodium/ Sodium Chloride (HEPARIN for ARTERIAL LINE FLUSH) 1,000 unit 1X ONCE IART Last administered on 11/29/18at 10:36; Start 11/29/18 at 08:45; Stop 11/29/18 at 08:50; Status DC Heparin Sodium/ Sodium Chloride (HEPARIN for ARTERIAL LINE FLUSH) 1,000 unit 1X ONCE IART Last administered on 11/29/18at 10:36; Start 11/29/18 at 08:45; Stop 11/29/18 at 08:50; Status DC Midazolam HCl (Versed) 5 mg 1X ONCE IV Last administered on 11/29/18at 10:39; Start 11/29/18 at 08:45; Stop 11/29/18 at 08:50; Status DC Fentanyl Citrate (Fentanyl 2ml Vial) 100 mcg 1X ONCE IV Last administered on at 10:38; Start 11/29/18 at 08:45; Stop 11/29/18 at 08:50; Status DC Iohexol (Omnipaque 300 Mg/ml) 100 ml 1X ONCE IART Last administered on at 10:38; Start 11/29/18 at 08:45; Stop 11/29/18 at 08:50; Status DC Lidocaine HCl (Lidocaine 1% 20ml Vial) 20 ml 1X ONCE INJ Last administered on 11/29/18at 08:45; Start 11/29/18 at 08:45; Stop 11/29/18 at 08:50; Status DC Iohexol (Omnipaque 300 Mg/ml) 100 ml STK-MED ONCE .ROUTE ; Start 11/29/18 at 09: 33; Stop 11/29/18 at 09:34; Status DC Bivalirudin (Angiomax) 250 mg STK-MED ONCE IV ; Start 11/29/18 at 09:44; Stop at 09:45; Status DC Bivalirudin (Angiomax) 250 mg 1X ONCE IV Last administered on 11/29/18at 10:37 ; Start 11/29/18 at 09:47; Stop 11/29/18 at 09:58; Status DC Iohexol (Omnipaque 300 Mg/ml) 100 ml STK-MED ONCE .ROUTE ; Start 11/29/18 at 09: 51; Stop 11/29/18 at 09:52; Status DC Clopidogrel Bisulfate (Plavix) 75 mg STK-MED ONCE .ROUTE ; Start 11/29/18 at 10: 16; Stop 11/29/18 at 10:17; Status DC Aspirin (Daniela Aspirin) 325 mg STK-MED ONCE .ROUTE ; Start 11/29/18 at 10:16; Stop 11/29/18 at 10:17; Status DC Nitroglycerin (Nitroglycerin) 200 mcg STK-MED ONCE .ROUTE ; Start 11/29/18 at 10 :17; Stop 11/29/18 at 10:18; Status DC Nitroglycerin (Nitroglycerin) 200 mcg 1X ONCE ICAR Last administered on at 10:36; Start 11/29/18 at 10:30; Stop 11/29/18 at 10:31; Status DC Clopidogrel Bisulfate (Plavix) 600 mg 1X ONCE PO Last administered on at 10:36; Start 11/29/18 at 10:30; Stop 11/29/18 at 10:31; Status DC Iohexol (Omnipaque 300 Mg/ml) 100 ml STK-MED ONCE .ROUTE ; Start 11/29/18 at 10: 21; Stop 11/29/18 at 10:22; Status DC Aspirin (Daniela Aspirin) 325 mg 1X ONCE PO Last administered on 11/29/18at 10:45 ; Start 11/29/18 at 10:45; Stop 11/29/18 at 10:46; Status DC Iohexol (Omnipaque 300 Mg/ml) 100 ml STK-MED ONCE .ROUTE ; Start 11/29/18 at 11: 14; Stop 11/29/18 at 11:15; Status DC Lidocaine HCl (Lidocaine 1% 20ml Vial) 20 ml STK-MED ONCE .ROUTE ; Start at 11:14; Stop 11/29/18 at 11:15; Status DC Heparin Sodium/ Sodium Chloride 1,000 ml @ As Directed STK-MED ONCE .ROUTE ; Start 11/29/18 at 11:15; Stop 11/29/18 at 11:16; Status DC Sodium Chloride (Normal Saline Flush) 3 ml QSHIFT PRN IV AFTER MEDS AND BLOOD DRAWS; Start 11/29/18 at 12:30 Sodium Chloride 1,000 ml @ 75 mls/hr [id number] IV ; Start 11/29/18 at 12:20; Stop 11/29/18 at 18:19; Status DC Aspirin (Ecotrin) 325 mg DAILYWBKFT PO Last administered on 12/02/18at 08:09; Start 11/30/18 at 08:00 Clopidogrel Bisulfate (Plavix) 75 mg DAILYWBKFT PO Last administered on at 08:09; Start 11/30/18 at 08:00 Lisinopril (Prinivil) 5 mg DAILY PO Last administered on 11/30/18at 08:27; Start 11/29/18 at 13:00; Stop 11/30/18 at 17:52; Status DC Acetaminophen (Tylenol) 650 mg PRN Q6HRS PRN PO MILD PAIN / TEMP; Start at 12:30 Fentanyl Citrate (Fentanyl 2ml Vial) 50 mcg PRN Q1HR PRN IV MODERATE OR SEVERE PAIN Last administered on 12/02/18at 08:11; Start 11/29/18 at 12:30 Nitroglycerin (Nitrostat) 0.4 mg PRN Q5MIN PRN SL CHEST PAIN; Start 11/29/18 at 12:30 Amiodarone HCl 150 mg/Dextrose 103 ml @ 600 mls/hr 1X PRN PRN IV FOR VENTRICULAR TACHYCARDIA; Start 11/29/18 at 12:30 Lidocaine HCl (Lidocaine HCl 2% Abboject) 100 mg 1X PRN PRN IV FOR VENTRICULAR TACHYCARDIA; Start 11/29/18 at 12:30 Atropine Sulfate (ATROPINE 0.5mg SYRINGE) 0.5 mg PRN 1X PRN IV BRADYCARDIA; Start 11/29/18 at 12:30 Hydralazine HCl (Apresoline Inj) 10 mg PRN Q4HRS PRN IVP ELEVATED BP, SEE COMMENTS; Start 11/29/18 at 18:15 Heparin Sodium/ Dextrose 500 ml @ 0 mls/hr CONT PRN IV SEE I/O RECORD Last administered on 12/01/18at 20:26; Start 11/29/18 at 18:45 Heparin Sodium (Porcine) (Heparin Sodium) 1,750 unit PRN Q6HRS PRN IV FOR UFH LEVEL LESS THAN 0.2 Last administered on 12/02/18at 03:45; Start 11/29/18 at 18: 45; Stop 12/02/18 at 07:44; Status DC Metoprolol Succinate (Toprol Xl) 25 mg DAILY PO Last administered on 12/02/18at 08:10; Start 11/30/18 at 09:00 Lisinopril (Prinivil) 20 mg DAILY PO Last administered on 12/02/18at 08:10; Start 12/01/18 at 09:00 Lidocaine HCl (Lidocaine 1% 20ml Vial) 20 ml STK-MED ONCE .ROUTE ; Start at 12:09; Stop 12/01/18 at 12:10; Status DC Heparin Sodium/ Sodium Chloride 1,000 ml @ As Directed STK-MED ONCE .ROUTE ; Start 12/01/18 at 12:09; Stop 12/01/18 at 12:10; Status DC Iodixanol (Visipaque 320) 100 ml STK-MED ONCE .ROUTE ; Start 12/01/18 at 13:26; Stop 12/01/18 at 13:27; Status DC Midazolam HCl (Versed) 2 mg STK-MED ONCE .ROUTE ; Start 12/01/18 at 13:54; Stop 12/01/18 at 13:55; Status DC Fentanyl Citrate (Fentanyl 2ml Vial) 100 mcg STK-MED ONCE .ROUTE ; Start at 13:54; Stop 12/01/18 at 13:55; Status DC Verapamil HCl (Verapamil) 5 mg STK-MED ONCE .ROUTE ; Start 12/01/18 at 13:54; Stop 12/01/18 at 13:55; Status DC Heparin Sodium (Porcine) (Heparin Sodium) 10,000 unit STK-MED ONCE .ROUTE ; Start 12/01/18 at 13:55; Stop 12/01/18 at 13:56; Status DC Nitroglycerin (Nitroglycerin) 200 mcg STK-MED ONCE .ROUTE ; Start 12/01/18 at 13 :55; Stop 12/01/18 at 13:56; Status DC Nitroglycerin (Nitroglycerin) 200 mcg 1X ONCE IART Last administered on 14:45; Start 12/01/18 at 14:45; Stop 12/01/18 at 14:46; Status DC Verapamil HCl (Verapamil) 2.5 mg 1X ONCE IART Last administered on 12/01/18 14:45; Start 12/01/18 at 14:45; Stop 12/01/18 at 14:46; Status DC Heparin Sodium (Porcine) (Heparin Sodium) 2,500 unit 1X ONCE IART Last administered on 12/01/18 14:45; Start 12/01/18 at 14:45; Stop 12/01/18 at 14:46 ; Status DC Heparin Sodium/ Sodium Chloride (HEPARIN for ARTERIAL LINE FLUSH) 1,000 unit 1X ONCE IART Last administered on 12/01/18 14:45; Start 12/01/18 at 14:45; Stop 12/01/18 at 14:46; Status DC Heparin Sodium/ Sodium Chloride (HEPARIN for ARTERIAL LINE FLUSH) 1,000 unit 1X ONCE IART Last administered on 12/01/18 14:45; Start 12/01/18 at 14:45; Stop 12/01/18 at 14:46; Status DC Midazolam HCl (Versed) 1 mg 1X ONCE IV Last administered on 12/01/18 14:45; Start 12/01/18 at 14:45; Stop 12/01/18 at 14:46; Status DC Fentanyl Citrate (Fentanyl 2ml Vial) 50 mcg 1X ONCE IV Last administered on 14:45; Start 12/01/18 at 14:45; Stop 12/01/18 at 14:46; Status DC Iohexol (Omnipaque 300 Mg/ml) 100 ml 1X ONCE IART Last administered on at 14:45; Start 12/01/18 at 14:45; Stop 12/01/18 at 14:46; Status DC Lidocaine HCl (Lidocaine 1% 20ml Vial) 10 ml 1X ONCE INJ Last administered on 12/01/18at 14:45; Start 12/01/18 at 14:45; Stop 12/01/18 at 14:46; Status DC Info (CONTRAST GIVEN -- Rx MONITORING) 1 each PRN DAILY PRN MC SEE COMMENTS; Start 12/01/18 at 14:45; Stop 12/03/18 at 14:44 Heparin Sodium (Porcine) (Heparin Sodium) 2,000 unit 1X ONCE IV Last administered on 12/01/18at 14:45; Start 12/01/18 at 14:45; Stop 12/01/18 at 14:47 ; Status DC Heparin Sodium/ Sodium Chloride 500 ml @ As Directed STK-MED ONCE .ROUTE ; Start 12/01/18 at 15:00; Stop 12/01/18 at 15:01; Status DC Active Scripts Active Metoprolol Succinate ( Xl ) (Metoprolol Succinate) 25 Mg Tab.er.24h 1 Tab PO DAILY 30 Days Chantix (Varenicline Tartrate) 0.5 Mg Tablet 0.5 Mg PO DIRECTED 42 Days 0.5 MG PO DAILY X3 DAY, 0.5 MG PO BID X4 DAY, 1 MG PO BID UNTIL END OF TREATMENT Disp 11 0.5mg tabs and 42 1mg tabs Aspirin Ec (Aspirin) 325 Mg Tablet.dr 325 Mg PO DAILYWBKFT 30 Days Lisinopril 5 Mg Tablet 5 Mg PO DAILY 30 Days Clopidogrel (Clopidogrel Bisulfate) 75 Mg Tablet 75 Mg PO DAILYWBKFT 30 Days Reported Levsin-Sl (Hyoscyamine Sulfate) 0.125 Mg Tab.subl 1-2 Tab SL PRN Q4HRS Benzonatate 100 Mg Capsule 100 Mg PO TID PRN Potassium Chloride 10 Meq Tablet.er 10 Meq PO BID Fluoxetine Hcl 40 Mg Capsule 60 Mg PO DAILY Metformin Hcl 500 Mg Tablet 500 Mg PO DAILYWBKFT Hydrochlorothiazide Capsule (Hydrochlorothiazide) 12.5 Mg Capsule 12.5 Mg PO DAILY Requip (Ropinirole Hcl) 0.5 Mg Tablet 0.25 Mg PO BID Protonix (Pantoprazole Sodium) 20 Mg Tablet.dr 40 Mg PO DAILY Hydroxyzine Hcl 25 Mg Tablet 25 Mg PO PRN Q8HRS PRN Cyclobenzaprine Hcl 5 Mg Tablet 5 Mg PO TID Trazodone Hcl 150 Mg Tablet 1 Tab PO QHS Vitals/I & O Vital Sign - Last 24 Hours 12/01/18 12/01/18 12/01/18 12/01/18 11:00 14:45 14:45 15:23 Temp 98.0 98.0 Pulse 74 72 54 Resp 18 15 13 B/P (MAP) 145/77 (99) Pulse Ox 91 95 O2 Delivery Nasal Cannula Nasal Cannula O2 Flow Rate 3.0 3.0 12/01/18 12/01/18 12/01/18 12/01/18 16:00 16:00 16:15 16:30 Pulse 51 52 Resp 15 17 B/P (MAP) 97/58 (71) 110/68 (82) Pulse Ox 96 97 O2 Delivery Nasal Cannula Nasal Cannula Nasal Cannula O2 Flow Rate 3.0 3.0 4.0 12/01/18 12/01/18 12/01/18 12/01/18 16:30 16:30 16:45 16:59 Temp 98.8 98.8 Pulse 50 50 Resp 16 19 16 B/P (MAP) 101/58 (72) 108/57 (74) Pulse Ox 96 95 95 O2 Delivery Nasal Cannula Nasal Cannula Nasal Cannula O2 Flow Rate 3.0 3.0 4.0 12/01/18 12/01/18 12/01/18 12/01/18 17:00 17:00 17:30 18:00 Pulse 50 54 52 Resp 21 15 16 B/P (MAP) 98/60 (73) 94/63 (73) 101/58 (72) Pulse Ox 93 97 98 O2 Delivery Nasal Cannula Nasal Cannula Nasal Cannula O2 Flow Rate 4.0 4.0 4.0 12/01/18 12/01/18 12/01/18 12/01/18 20:00 20:00 20:34 21:00 Pulse 54 54 Resp 18 20 B/P (MAP) 113/65 (81) 90/40 (57) Pulse Ox 94 98 92 O2 Delivery Nasal Cannula Nasal Cannula Nasal Cannula Nasal Cannula O2 Flow Rate 4.0 4.0 4.0 4.0 4/12/01/18 12/02/18 12/02/18 22:00 23:00 00:01 00:02 Pulse 60 61 58 Resp 20 20 20 B/P (MAP) 140/57 (84) 124/71 (88) 147/74 (98) Pulse Ox 95 93 92 O2 Delivery Nasal Cannula Nasal Cannula Nasal Cannula Nasal Cannula O2 Flow Rate 4.0 4.0 4.0 4.0 12/02/18 12/02/18 12/02/18 12/02/18 01:14 02:12 02:57 03:30 Pulse 65 64 Resp 18 18 20 20 B/P (MAP) 159/89 (112) 136/68 (90) Pulse Ox 91 95 95 88 O2 Delivery Nasal Cannula Nasal Cannula Nasal Cannula O2 Flow Rate 4.0 4.0 4.0 12/02/18 12/02/18 12/02/18 12/02/18 04:00 04:00 05:07 06:00 Temp 98.8 98.8 Pulse 64 59 65 Resp B/P (MAP) 139/67 (91) 123/73 (90) 140/78 (98) Pulse Ox 89 89 88 O2 Delivery Nasal Cannula Nasal Cannula Nasal Cannula Nasal Cannula O2 Flow Rate 4.0 4.0 4.0 4.0 12/02/18 12/02/18 12/02/18 12/02/18 07:00 08:00 08:00 08:10 Temp 98.8 98.8 98.8 98.8 Pulse 65 61 61 Resp 16 16 B/P (MAP) 135/75 (95) 126/71 (89) 126/71 Pulse Ox 90 88 O2 Delivery Nasal Cannula Nasal Cannula Nasal Cannula O2 Flow Rate 4.0 4.0 4.0 12/02/18 12/02/18 12/02/18 12/02/18 08:10 08:11 08:40 09:00 Temp 98.8 98.8 Pulse 61 57 Resp 16 B/P (MAP) 126/71 101/62 (75) O2 Delivery Nasal Cannula Nasal Cannula Nasal Cannula O2 Flow Rate 4.0 4.0 4.0 Intake and Output 12/01/18 12/01/18 12/02/18 15:00 23:00 07:00 Intake Total 450 ml 100 ml Output Total 0 ml Balance 450 ml 100 ml RASHEED WONG MD Dec 02, 2018 09:09
--- NOTE | 2018-12-02 10:18 | PDOC ---
CARDIOLOGY PROGRESS NOTE SUBJECTIVE: Reports some neck pain from laying flat. No chest pain. No dyspnea. OBJECTIVE: Vital SIgns: Vital Signs Date Time Temp Pulse Resp B/P (MAP) Pulse Ox O2 Delivery O2 Flow Rate FiO2 12/02/18 10:00 98.8 53 17 136/75 (95) 89 Nasal Cannula 4.0 98.8 I & O +500ml Objective: a/o x 3. NAD R eye movements normal. Normal gross CN exam. No lateralizing signs. Normal heart tones. Lungs with mild rhonchi No significant edema. 2+ radial pulses bilaterally. Normal right brachial, ulnar pulses. Right groin with bruit CURRENT MEDICATIONS: ASA Plavix Lisinopril Toprol XL *Patient not on statin due to allergy history DIAGNOSTIC TESTING: Hgb stable cr pending Tele with sinus bradycardia ASSESSMENT: 1. High risk NSTEMI s/p PCI to the LCx. 2. Persistent chest pain, s/p PCI to the RCA 3. 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 Right groin AV fistula from closure device site from cath on 11/29 5. COPD 6. HTN 7. Dyslipidemia 8. Fatigue. PLAN: 1. Check carotid dopplers, if normal right carotid flow, will stop hep gtt and continue asa, plavix only 2. Supportive care for now with aggressive PT/OT. 3. Await vascular ultrasound regarding groin as well. Will follow along. VIRGINIA SINGH MD Dec 02, 2018 10:18
[2018-12-02 10:41] LABS: CALCIUM 8.6 mg/dL (8.5-10.1); CREATININE 0.7 mg/dL (0.6-1.0); GFR 82.5; POTASSIUM 3.6 mmol/L (3.5-5.1)
--- NOTE | 2018-12-02 14:13 | RAD ---
MR#: [id number] Date of Study: 12/02/2018 Ordering Physician: VIRGINIA SINGH, Referring Physician: JUAN J GO, Tech: Megha Carty RDMS, RVT APPROVED REPORT Patient Location: IN-PATIENT Laterality:Bilateral Indications PAD WITH RECENT HISTORY OF SUBCLAVIAN DISSECTION Doppler Spectral Velocity Analysis Right Left pCCA 101/29 cm/spCCA 87/27 cm/s mCCA 98/35 cm/smCCA 89/29 cm/s dCCA 100/38 cm/sdCCA 80/32 cm/s Bulb 82/24 cm/sBulb 68/33 cm/s ECA 77/18 cm/sECA 92/17 cm/s pICA 102/37 cm/spICA 131/52 cm/s Norris 91/33 cm/smICA 121/58 cm/s dICA 95/36 cm/sdICA 71/31 cm/s Vert. 64/26 cm/sVert. 73/26 cm/s Subcl. 90/9 cm/sSubcl. 86/1 cm/s ICA/CCA 1.01ICA/CCA 1.51 Findings Grayscale images of the bilateral common carotid, internal and external carotid vessels as well as th e carotid bulbs demonstrates mild to moderate plaque greater on the left and the right. By spectral waveforms and color Doppler evaluation there is 0 to less than 50% stenosis on the right side. The vertebral velocity is antegrade and there is no significant stenosis identified. The right subclavian velocities are within normal limits. By spectral waveforms and color Doppler evaluation there is approximately a 50-69% stenosis involving the left internal carotid artery. No other significant stenosis identified. Left subclavian and vert ebral velocities are within normal limits. Normal ICA to CCA ratios bilaterally. Critical Notification Critical Value: No <Conclusion> 1. Normal antegrade flow in the right vertebral, no obvious significant velocity acceleration in the right subclavian artery and normal antegrade flow in the right common carotid artery noted. Signed by : Virginia Singh, Electronically Approved : 12/02/2018 14:13:01
--- NOTE | 2018-12-02 14:16 | RAD ---
MR#: [id number] Date of Study: 12/02/2018 Ordering Physician: VIRGINIA KESSLRE, Referring Physician: JUAN J GO Tech: Megha Carty RDMS, RVT APPROVED REPORT Patient Location: IN-PATIENT Surgery/Intervention HEART CATH 11/29/18 Findings Grayscale images of the right groin were obtained with vascular evaluation to rule out pseudoaneurysm versus AV fistula formation after recent cardiac catheterization. Wu scale images do not demonstrate any obvious evidence of hematoma. There does appear to be a high velocity jet noted at the level of the distal common femoral artery extending into the common femora l vein with turbulent flow suggestive of an arteriovenous fistula formation. The common femoral vein appears to be patent. Critical Notification Critical Value: Yes <Conclusion> 1. 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 2. No obvious evidence of pseudoaneurysm noted. Signed by : Virginia Kessler, Electronically Approved : 12/02/2018 14:15:33
[2018-12-02] MEDS: ACETAMINOPHEN 325 MG TABLET. PO PRN (16:50)
[2018-12-02] MEDS: INSULIN GLARGINE 300 UNITS/3 ML INSULN.PEN. SQ SCH (21:00)
[2018-12-02] MEDS: traZODone 100 MG TABLET. PO SCH (21:44)
[2018-12-03 03:57] VITALS: BP 136/81
[2018-12-03 07:41] VITALS: BP 133/68
[2018-12-03] MEDS: INSULIN LISPRO 300 UNITS/3 ML INSULN.PEN. SQ SCH ×3 (08:00→17:00)
--- NOTE | 2018-12-03 08:33 | PDOC ---
PROGRESS NOTES Chief Complaint Chief Complaint A/P: NSTEMI - with highly elevated troponins, cath results with circumflex angioplasty only. Troponin over 100 post cath Malignant HTN - better, cont meds Myopathy with several statins in the past - will need to consider a PCSK9 inhibitor repatha or praluent Smoker - relapsed, will need new script for chantix DM - will place on sliding scale insulin CAD; s/p angioplasty to LCx in-stent restenosis and distal lesion. LAD with moderate disease. RCA restenosis with 90% midportion lesion. Ischemic Cardiomyopathy - LVEF 40%. Currently compensated today Hyperlipidemia; hx stain intolerance as above History of Present Illness History of Present Illness Patient is a 73-year-old female w/PMHx smoker (quit), Coronary artery disease, status post multiple stents, most recently approximately 4 years ago, Hypertension, Diabetes, Dyslipidemia who presents with 2 day history of left- sided chest pain. Patient states that at times it radiates to her left shoulder. She describes pain as a lot of pressure and tightness. She rates pain at a 9 out of 10 currently. She states that she has been nauseated but has not vomited. She denies any diaphoresis. Patient states the pain is worsened with exertion. She states that onset of pain was at rest. Patient does have significant cardiac history with history of 5 stents. Troponin elevated from 0.08 to 11 overnight. She did start smoking again after quitting with chantix and has not been taking ASA or plavix 12/01: To collaborative physician 11/29 with Mid occlusion in the left circumflex at the site of previous stent placement. Successful opening of this lesion and a more distal lesion with balloon angioplasty. Moderate diffuse disease in the left anterior descending as noted as well. 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 And right subclavian mild dissection, had RCA balloon angioplasty, came to ICU for further monitoring. Downgraded to CVC bed. Her pain improved. Noted on US with right groin AV fistula as above. Pain is better today. Plan: Optimized meds F/u Cardiology recs Cardiac rehab on d/c Likely home tomorrow Vitals Vitals Vital Signs Date Time Temp Pulse Resp B/P (MAP) Pulse Ox O2 Delivery O2 Flow Rate FiO2 12/03/18 07:41 97.2 60 24 133/68 (89) 95 Nasal Cannula 4.0 97.2 Physical Exam General: Alert, Oriented X3, Cooperative, No acute distress Heart: Regular rate (SR) Lungs: Wheezing Abdomen: No tenderness Extremities: No cyanosis Skin: No breakdown, No significant lesion Labs LABS Laboratory Tests Test 12/02/18 10:57 12/02/18 13:50 12/02/18 16:56 12/03/18 08:24 Glucose (Fingerstick) 103 mg/dL (70-99) 122 mg/dL (70-99) 92 mg/dL (70-99) Heparin Anti-Xa Act, Unfractionated 0.56 IU/mL (0.30-0.70) Assessment and Plan Assessmemt and Plan Problems Medical Problems: (1) Non-STEMI (non-ST elevated myocardial infarction) Status: Acute Comment Review of Relevant I have reviewed the following items dian (where applicable) has been applied. Labs Laboratory Tests Test 12/01/18 11:16 12/01/18 14:31 12/01/18 15:44 12/01/18 22:33 Glucose (Fingerstick) 106 mg/dL (70-99) 106 mg/dL (70-99) Activated Clotting Time 192 sec (92-181) 200 sec (92-181) Test 12/02/18 02:30 12/02/18 07:44 12/02/18 07:55 12/02/18 10:57 White Blood Count 7.9 x10^3/uL (4.0-11.0) Red Blood Count 4.79 x10^6/uL (3.50-5.40) Hemoglobin 12.8 g/dL (12.0-15.5) Hematocrit 40.9 % (36.0-47.0) Mean Corpuscular Volume 85 fL (79-100) Mean Corpuscular Hemoglobin 27 pg (25-35) Mean Corpuscular Hemoglobin Concent 31 g/dL (31-37) Red Cell Distribution Width 16.8 % (11.5-14.5) Platelet Count 179 x10^3/uL (140-400) Heparin Anti-Xa Act, Unfractionated 0.16 IU/mL (0.30-0.70) 0.50 IU/mL (0.30-0.70) Glucose (Fingerstick) 124 mg/dL (70-99) 103 mg/dL (70-99) Sodium Level 138 mmol/L (136-145) Potassium Level 3.6 mmol/L (3.5-5.1) Chloride Level 104 mmol/L (98-107) Carbon Dioxide Level 29 mmol/L (21-32) Anion Gap 5 (6-14) Blood Urea Nitrogen 8 mg/dL (7-20) Creatinine 0.7 mg/dL (0.6-1.0) Estimated GFR (Cockcroft-Gault) 82.5 Glucose Level 111 mg/dL (70-99) Calcium Level 8.6 mg/dL (8.5-10.1) Test 12/02/18 13:50 12/02/18 16:56 12/03/18 08:24 Heparin Anti-Xa Act, Unfractionated 0.56 IU/mL (0.30-0.70) Glucose (Fingerstick) 122 mg/dL (70-99) 92 mg/dL (70-99) Laboratory Tests Test 12/02/18 10:57 12/02/18 13:50 12/02/18 16:56 12/03/18 08:24 Glucose (Fingerstick) 103 mg/dL (70-99) 122 mg/dL (70-99) 92 mg/dL (70-99) Heparin Anti-Xa Act, Unfractionated 0.56 IU/mL (0.30-0.70) Medications Current Medications Aspirin (Children'S Aspirin) 324 mg 1X ONCE PO Last administered on 11/28/18at 23:46; Start 11/29/18 at 00:00; Stop 11/29/18 at 00:01; Status DC Nitroglycerin (Nitrostat) 0.4 mg PRN Q5MIN PRN SL CP RATING > 1/10 Last administered on 11/28/18at 23:47; Start 11/28/18 at 23:45; Stop 11/29/18 at 23:44 ; Status DC Morphine Sulfate (Morphine Sulfate) 2 mg 1X ONCE IV Last administered on at 23:48; Start 11/29/18 at 00:00; Stop 11/29/18 at 00:01; Status DC Sodium Chloride 1,000 ml @ 100 mls/hr Q10H IV Last administered on 11/28/18at 23:48; Start 11/29/18 at 00:00; Stop 11/29/18 at 09:59; Status DC Ondansetron HCl (Zofran) 4 mg 1X ONCE IV Last administered on 11/28/18at 23:47 ; Start 11/29/18 at 00:00; Stop 11/29/18 at 00:01; Status DC Potassium Chloride (Klor-Con) 40 meq 1X ONCE PO Last administered on at 00:25; Start 11/29/18 at 01:00; Stop 11/29/18 at 01:01; Status DC Morphine Sulfate (Morphine Sulfate) 2 mg 1X ONCE IV Last administered on at 01:17; Start 11/29/18 at 01:00; Stop 11/29/18 at 01:01; Status DC Ondansetron HCl (Zofran) 4 mg PRN Q8HRS PRN IV NAUSEA/VOMITING 1ST CHOICE Last administered on 11/29/18at 11:22; Start 11/29/18 at 01:00; Stop 11/30/18 at 00:59 ; Status DC Morphine Sulfate (Morphine Sulfate) 2 mg PRN Q2HR PRN IV SEVERE PAIN Last administered on 11/29/18at 23:01; Start 11/29/18 at 01:00; Stop 11/30/18 at 00:59 ; Status DC Sodium Chloride 1,000 ml @ 125 mls/hr Q8H IV Last administered on 11/29/18at 12 :23; Start 11/29/18 at 01:00; Stop 11/29/18 at 15:50; Status DC Clonidine HCl (Catapres) 0.2 mg 1X ONCE PO Last administered on 11/29/18at 01: 18; Start 11/29/18 at 01:30; Stop 11/29/18 at 01:31; Status DC Heparin Sodium (Porcine) (Heparin Sodium) 4,000 unit 1X ONCE IV Last administered on 11/29/18at 01:20; Start 11/29/18 at 01:30; Stop 11/29/18 at 01:31 ; Status DC Heparin Sodium/ Dextrose 500 ml @ 0 mls/hr CONT PRN IV SEE I/O RECORD Last administered on 11/29/18at 01:21; Start 11/29/18 at 01:00; Stop 11/29/18 at 18:42 ; Status DC Heparin Sodium (Porcine) (Heparin Sodium) 1,800 unit PRN Q6HRS PRN IV FOR UFH LEVEL LESS THAN 0.2 Last administered on 11/30/18at 04:38; Start 11/29/18 at 01: 00; Stop 12/03/18 at 07:52; Status DC Trazodone HCl (Desyrel) 150 mg QHS PO Last administered on 12/02/18at 21:44; Start 11/29/18 at 21:00 Insulin Glargine (Lantus) 8 units QHS SQ ; Start 11/29/18 at 21:00 Insulin Human Lispro (HumaLOG) 0-7 UNITS TIDWMEALS SQ ; Start 11/29/18 at 08:00 Dextrose (Dextrose 50%-Water Syringe) 12.5 gm PRN Q15MIN PRN IV SEE COMMENTS; Start 11/29/18 at 08:00 Magnesium Sulfate 50 ml @ 25 mls/hr 1X ONCE IV Last administered on 11/29/18at 12:22; Start 11/29/18 at 08:30; Stop 11/29/18 at 10:29; Status DC Info (Anti-Coagulation Monitoring By Pharmacy) 1 each PRN DAILY PRN MC SEE COMMENTS Last administered on 12/02/18at 07:47; Start 11/29/18 at 08:15; Stop at 07:52; Status DC Info (Anti-Coagulation Monitoring By Pharmacy) 1 each PRN DAILY PRN MC SEE COMMENTS; Start 11/29/18 at 08:30; Status Cancel Fentanyl Citrate (Fentanyl 2ml Vial) 100 mcg STK-MED ONCE .ROUTE ; Start at 08:28; Stop 11/29/18 at 08:29; Status DC Midazolam HCl (Versed) 5 mg STK-MED ONCE .ROUTE ; Start 11/29/18 at 08:28; Stop 11/29/18 at 08:29; Status DC Heparin Sodium/ Sodium Chloride (HEPARIN for ARTERIAL LINE FLUSH) 1,000 unit 1X ONCE IART Last administered on 11/29/18at 10:36; Start 11/29/18 at 08:45; Stop 11/29/18 at 08:50; Status DC Heparin Sodium/ Sodium Chloride (HEPARIN for ARTERIAL LINE FLUSH) 1,000 unit 1X ONCE IART Last administered on 11/29/18at 10:36; Start 11/29/18 at 08:45; Stop 11/29/18 at 08:50; Status DC Midazolam HCl (Versed) 5 mg 1X ONCE IV Last administered on 11/29/18at 10:39; Start 11/29/18 at 08:45; Stop 11/29/18 at 08:50; Status DC Fentanyl Citrate (Fentanyl 2ml Vial) 100 mcg 1X ONCE IV Last administered on at 10:38; Start 11/29/18 at 08:45; Stop 11/29/18 at 08:50; Status DC Iohexol (Omnipaque 300 Mg/ml) 100 ml 1X ONCE IART Last administered on at 10:38; Start 11/29/18 at 08:45; Stop 11/29/18 at 08:50; Status DC Lidocaine HCl (Lidocaine 1% 20ml Vial) 20 ml 1X ONCE INJ Last administered on 11/29/18at 08:45; Start 11/29/18 at 08:45; Stop 11/29/18 at 08:50; Status DC Iohexol (Omnipaque 300 Mg/ml) 100 ml STK-MED ONCE .ROUTE ; Start 11/29/18 at 09: 33; Stop 11/29/18 at 09:34; Status DC Bivalirudin (Angiomax) 250 mg STK-MED ONCE IV ; Start 11/29/18 at 09:44; Stop at 09:45; Status DC Bivalirudin (Angiomax) 250 mg 1X ONCE IV Last administered on 11/29/18at 10:37 ; Start 11/29/18 at 09:47; Stop 11/29/18 at 09:58; Status DC Iohexol (Omnipaque 300 Mg/ml) 100 ml STK-MED ONCE .ROUTE ; Start 11/29/18 at 09: 51; Stop 11/29/18 at 09:52; Status DC Clopidogrel Bisulfate (Plavix) 75 mg STK-MED ONCE .ROUTE ; Start 11/29/18 at 10: 16; Stop 11/29/18 at 10:17; Status DC Aspirin (Daniela Aspirin) 325 mg STK-MED ONCE .ROUTE ; Start 11/29/18 at 10:16; Stop 11/29/18 at 10:17; Status DC Nitroglycerin (Nitroglycerin) 200 mcg STK-MED ONCE .ROUTE ; Start 11/29/18 at 10 :17; Stop 11/29/18 at 10:18; Status DC Nitroglycerin (Nitroglycerin) 200 mcg 1X ONCE ICAR Last administered on at 10:36; Start 11/29/18 at 10:30; Stop 11/29/18 at 10:31; Status DC Clopidogrel Bisulfate (Plavix) 600 mg 1X ONCE PO Last administered on at 10:36; Start 11/29/18 at 10:30; Stop 11/29/18 at 10:31; Status DC Iohexol (Omnipaque 300 Mg/ml) 100 ml STK-MED ONCE .ROUTE ; Start 11/29/18 at 10: 21; Stop 11/29/18 at 10:22; Status DC Aspirin (Daniela Aspirin) 325 mg 1X ONCE PO Last administered on 11/29/18at 10:45 ; Start 11/29/18 at 10:45; Stop 11/29/18 at 10:46; Status DC Iohexol (Omnipaque 300 Mg/ml) 100 ml STK-MED ONCE .ROUTE ; Start 11/29/18 at 11: 14; Stop 11/29/18 at 11:15; Status DC Lidocaine HCl (Lidocaine 1% 20ml Vial) 20 ml STK-MED ONCE .ROUTE ; Start at 11:14; Stop 11/29/18 at 11:15; Status DC Heparin Sodium/ Sodium Chloride 1,000 ml @ As Directed STK-MED ONCE .ROUTE ; Start 11/29/18 at 11:15; Stop 11/29/18 at 11:16; Status DC Sodium Chloride (Normal Saline Flush) 3 ml QSHIFT PRN IV AFTER MEDS AND BLOOD DRAWS; Start 11/29/18 at 12:30 Sodium Chloride 1,000 ml @ 75 mls/hr [id number] IV ; Start 11/29/18 at 12:20; Stop 11/29/18 at 18:19; Status DC Aspirin (Ecotrin) 325 mg DAILYWBKFT PO Last administered on 12/02/18at 08:09; Start 11/30/18 at 08:00; Stop 12/02/18 at 10:34; Status DC Clopidogrel Bisulfate (Plavix) 75 mg DAILYWBKFT PO Last administered on 08:09; Start 11/30/18 at 08:00 Lisinopril (Prinivil) 5 mg DAILY PO Last administered on 11/30/18 08:27; Start 11/29/18 at 13:00; Stop 11/30/18 at 17:52; Status DC Acetaminophen (Tylenol) 650 mg PRN Q6HRS PRN PO MILD PAIN / TEMP Last administered on 12/02/18at 16:50; Start 11/29/18 at 12:30 Fentanyl Citrate (Fentanyl 2ml Vial) 50 mcg PRN Q1HR PRN IV MODERATE OR SEVERE PAIN Last administered on 12/02/18at 21:46; Start 11/29/18 at 12:30 Nitroglycerin (Nitrostat) 0.4 mg PRN Q5MIN PRN SL CHEST PAIN; Start 11/29/18 at 12:30 Amiodarone HCl 150 mg/Dextrose 103 ml @ 600 mls/hr 1X PRN PRN IV FOR VENTRICULAR TACHYCARDIA; Start 11/29/18 at 12:30 Lidocaine HCl (Lidocaine HCl 2% Abboject) 100 mg 1X PRN PRN IV FOR VENTRICULAR TACHYCARDIA; Start 11/29/18 at 12:30 Atropine Sulfate (ATROPINE 0.5mg SYRINGE) 0.5 mg PRN 1X PRN IV BRADYCARDIA; Start 11/29/18 at 12:30 Hydralazine HCl (Apresoline Inj) 10 mg PRN Q4HRS PRN IVP ELEVATED BP, SEE COMMENTS; Start 11/29/18 at 18:15 Heparin Sodium/ Dextrose 500 ml @ 0 mls/hr CONT PRN IV SEE I/O RECORD Last administered on 12/01/18at 20:26; Start 11/29/18 at 18:45; Stop 12/02/18 at 14:12 ; Status DC Heparin Sodium (Porcine) (Heparin Sodium) 1,750 unit PRN Q6HRS PRN IV FOR UFH LEVEL LESS THAN 0.2 Last administered on 12/02/18at 03:45; Start 11/29/18 at 18: 45; Stop 12/02/18 at 07:44; Status DC Metoprolol Succinate (Toprol Xl) 25 mg DAILY PO Last administered on 12/02/18at 08:10; Start 11/30/18 at 09:00 Lisinopril (Prinivil) 20 mg DAILY PO Last administered on 12/02/18at 08:10; Start 12/01/18 at 09:00 Lidocaine HCl (Lidocaine 1% 20ml Vial) 20 ml STK-MED ONCE .ROUTE ; Start at 12:09; Stop 12/01/18 at 12:10; Status DC Heparin Sodium/ Sodium Chloride 1,000 ml @ As Directed STK-MED ONCE .ROUTE ; Start 12/01/18 at 12:09; Stop 12/01/18 at 12:10; Status DC Iodixanol (Visipaque 320) 100 ml STK-MED ONCE .ROUTE ; Start 12/01/18 at 13:26; Stop 12/01/18 at 13:27; Status DC Midazolam HCl (Versed) 2 mg STK-MED ONCE .ROUTE ; Start 12/01/18 at 13:54; Stop 12/01/18 at 13:55; Status DC Fentanyl Citrate (Fentanyl 2ml Vial) 100 mcg STK-MED ONCE .ROUTE ; Start at 13:54; Stop 12/01/18 at 13:55; Status DC Verapamil HCl (Verapamil) 5 mg STK-MED ONCE .ROUTE ; Start 12/01/18 at 13:54; Stop 12/01/18 at 13:55; Status DC Heparin Sodium (Porcine) (Heparin Sodium) 10,000 unit STK-MED ONCE .ROUTE ; Start 12/01/18 at 13:55; Stop 12/01/18 at 13:56; Status DC Nitroglycerin (Nitroglycerin) 200 mcg STK-MED ONCE .ROUTE ; Start 12/01/18 at 13 :55; Stop 12/01/18 at 13:56; Status DC Nitroglycerin (Nitroglycerin) 200 mcg 1X ONCE IART Last administered on at 14:45; Start 12/01/18 at 14:45; Stop 12/01/18 at 14:46; Status DC Verapamil HCl (Verapamil) 2.5 mg 1X ONCE IART Last administered on 12/01/18at 14:45; Start 12/01/18 at 14:45; Stop 12/01/18 at 14:46; Status DC Heparin Sodium (Porcine) (Heparin Sodium) 2,500 unit 1X ONCE IART Last administered on 12/01/18 14:45; Start 12/01/18 at 14:45; Stop 12/01/18 at 14:46 ; Status DC Heparin Sodium/ Sodium Chloride (HEPARIN for ARTERIAL LINE FLUSH) 1,000 unit 1X ONCE IART Last administered on 12/01/18 14:45; Start 12/01/18 at 14:45; Stop 12/01/18 at 14:46; Status DC Heparin Sodium/ Sodium Chloride (HEPARIN for ARTERIAL LINE FLUSH) 1,000 unit 1X ONCE IART Last administered on 12/01/18 14:45; Start 12/01/18 at 14:45; Stop 12/01/18 at 14:46; Status DC Midazolam HCl (Versed) 1 mg 1X ONCE IV Last administered on 12/01/18 14:45; Start 12/01/18 at 14:45; Stop 12/01/18 at 14:46; Status DC Fentanyl Citrate (Fentanyl 2ml Vial) 50 mcg 1X ONCE IV Last administered on 14:45; Start 12/01/18 at 14:45; Stop 12/01/18 at 14:46; Status DC Iohexol (Omnipaque 300 Mg/ml) 100 ml 1X ONCE IART Last administered on 14:45; Start 12/01/18 at 14:45; Stop 12/01/18 at 14:46; Status DC Lidocaine HCl (Lidocaine 1% 20ml Vial) 10 ml 1X ONCE INJ Last administered on 12/01/18 14:45; Start 12/01/18 at 14:45; Stop 12/01/18 at 14:46; Status DC Info (CONTRAST GIVEN -- Rx MONITORING) 1 each PRN DAILY PRN MC SEE COMMENTS; Start 12/01/18 at 14:45; Stop 12/03/18 at 14:44 Heparin Sodium (Porcine) (Heparin Sodium) 2,000 unit 1X ONCE IV Last administered on 12/01/18 14:45; Start 12/01/18 at 14:45; Stop 12/01/18 at 14:47 ; Status DC Heparin Sodium/ Sodium Chloride 500 ml @ As Directed STK-MED ONCE .ROUTE ; Start 12/01/18 at 15:00; Stop 12/01/18 at 15:01; Status DC Aspirin (Ecotrin) 81 mg DAILYWBKFT PO ; Start 12/03/18 at 08:00 Active Scripts Active Metoprolol Succinate ( Xl ) (Metoprolol Succinate) 25 Mg Tab.er.24h 1 Tab PO DAILY 30 Days Chantix (Varenicline Tartrate) 0.5 Mg Tablet 0.5 Mg PO DIRECTED 42 Days 0.5 MG PO DAILY X3 DAY, 0.5 MG PO BID X4 DAY, 1 MG PO BID UNTIL END OF TREATMENT Disp 11 0.5mg tabs and 42 1mg tabs Aspirin Ec (Aspirin) 325 Mg Tablet.dr 325 Mg PO DAILYWBKFT 30 Days Lisinopril 5 Mg Tablet 5 Mg PO DAILY 30 Days Clopidogrel (Clopidogrel Bisulfate) 75 Mg Tablet 75 Mg PO DAILYWBKFT 30 Days Reported Levsin-Sl (Hyoscyamine Sulfate) 0.125 Mg Tab.subl 1-2 Tab SL PRN Q4HRS Benzonatate 100 Mg Capsule 100 Mg PO TID PRN Potassium Chloride 10 Meq Tablet.er 10 Meq PO BID Fluoxetine Hcl 40 Mg Capsule 60 Mg PO DAILY Metformin Hcl 500 Mg Tablet 500 Mg PO DAILYWBKFT Hydrochlorothiazide Capsule (Hydrochlorothiazide) 12.5 Mg Capsule 12.5 Mg PO DAILY Requip (Ropinirole Hcl) 0.5 Mg Tablet 0.25 Mg PO BID Protonix (Pantoprazole Sodium) 20 Mg Tablet.dr 40 Mg PO DAILY Hydroxyzine Hcl 25 Mg Tablet 25 Mg PO PRN Q8HRS PRN Cyclobenzaprine Hcl 5 Mg Tablet 5 Mg PO TID Trazodone Hcl 150 Mg Tablet 1 Tab PO QHS Vitals/I & O Vital Sign - Last 24 Hours 12/02/18 12/02/18 12/02/18 12/02/18 09:00 10:00 11:00 11:50 Temp 98.8 98.8 97.8 97.9 98.8 98.8 97.8 97.9 Pulse 57 53 56 57 Resp 16 17 16 18 B/P (MAP) 101/62 (75) 136/75 (95) 130/71 (90) 128/71 (90) Pulse Ox 89 89 89 O2 Delivery Nasal Cannula Nasal Cannula Nasal Cannula Nasal Cannula O2 Flow Rate 4.0 4.0 4.0 4.0 12/02/18 12/02/18 12/02/18 12/02/18 11:50 13:00 14:00 17:50 Temp 97.9 97.9 97.3 97.9 97.9 97.3 Pulse 58 63 58 Resp 17 18 24 B/P (MAP) 107/66 (80) 108/61 (77) 134/71 (92) Pulse Ox 89 89 94 O2 Delivery Nasal Cannula Nasal Cannula Nasal Cannula Nasal Cannula O2 Flow Rate 4.0 4.0 4.0 4.0 12/02/18 12/02/18 12/02/18 12/02/18 19:59 20:00 21:46 22:16 Temp 98.3 98.3 Pulse 56 Resp 18 20 20 B/P (MAP) 112/61 (78) Pulse Ox 96 96 96 O2 Delivery Nasal Cannula Nasal Cannula Nasal Cannula Nasal Cannula O2 Flow Rate 4.0 4.0 4.0 4.0 12/02/18 12/03/18 12/03/18 23:06 03:57 07:41 Temp 97.3 97.6 97.2 97.3 97.6 97.2 Pulse 52 51 60 Resp 17 17 24 B/P (MAP) 114/63 (80) 136/81 (99) 133/68 (89) Pulse Ox 96 99 95 O2 Delivery Nasal Cannula Nasal Cannula Nasal Cannula O2 Flow Rate 4.0 4.0 4.0 Intake and Output 12/02/18 12/02/18 12/03/18 15:00 23:00 07:00 Intake Total 35 ml Output Total 450 ml 100 ml Balance -415 ml -100 ml RASHEED WONG MD Dec 03, 2018 08:33
[2018-12-03] MEDS: ASPIRIN ENTERIC COATED 81 MG TABLET.DR. PO SCH (08:36)
[2018-12-03] MEDS: CLOPIDOGREL BISULFATE 75 MG TABLET PO SCH (08:37)
[2018-12-03] MEDS: LISINOPRIL 20 MG TABLET PO SCH (08:45)
[2018-12-03] MEDS: METOPROLOL SUCC 24HR ER 25 MG TAB.ER.24H. PO SCH (08:46)
--- NOTE | 2018-12-03 10:58 | PDOC ---
CARDIOLOGY PROGRESS NOTE SUBJECTIVE: No acute events overnight. Reports that her chest pain is mostly resolved. OBJECTIVE: Vital SIgns: Vital Signs Date Time Temp Pulse Resp B/P (MAP) Pulse Ox O2 Delivery O2 Flow Rate FiO2 12/03/18 08:46 64 133/68 12/03/18 07:41 97.2 24 95 Nasal Cannula 4.0 97.2 I & O Intake and Output 12/03/18 06:59 Intake Total 35 ml Output Total 550 ml Balance -515 ml Intake Oral 35 ml Output Urine Total 550 ml Objective: Normal 2+ radial pulses bilaterally. No carotid bruits. Normal heart tones. No significant lower ext edema CURRENT MEDICATIONS: Aspirin, lisinopril, metoprolol and Plavix she's previously been very intolerant to statin therapy DIAGNOSTIC TESTING: Carotid Doppler unremarkable Right groin ultrasound reveals AV fistula but no obvious aneurysm no hematoma ASSESSMENT: 1. Ischemic cardiomyopathy with an ejection fraction of 40-45%, three-vessel coronary disease status post PCI to the RCA and left circumflex 2. Iatrogenic right subclavian dissection, currently resolved 3. 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 Hypertension 5. Dyslipidemia 6. Severe tobacco abuse PLAN: 1. Continue current medical therapy. 2. Rehabilitation evaluation ongoing, okay to discharge to home tomorrow if stable. VIRGINIA SINGH MD Dec 03, 2018 10:58
[2018-12-03] MEDS: ACETAMINOPHEN 325 MG TABLET. PO PRN ×2 (11:35→21:03)
[2018-12-03 11:39] VITALS: BP 134/65
[2018-12-03] MEDS: BENZOCAINE/MENTHOL LOZENGE. PO PRN ×2 (13:00→21:02)
[2018-12-03 15:27] VITALS: BP 143/63
[2018-12-03 18:25] VITALS: BP 117/61
[2018-12-03] MEDS: INSULIN GLARGINE 300 UNITS/3 ML INSULN.PEN. SQ SCH (21:00)
[2018-12-03] MEDS: traZODone 100 MG TABLET. PO SCH (21:03)
[2018-12-03] MEDS: fentaNYL PF VIAL 100 MCG/2 ML VIAL IV PRN (21:13)
[2018-12-03 23:50] VITALS: BP 122/62
[2018-12-04 03:00] VITALS: BP 110/55
[2018-12-04 07:00] VITALS: BP 132/64
[2018-12-04] MEDS: INSULIN LISPRO 300 UNITS/3 ML INSULN.PEN. SQ SCH ×2 (08:00→12:00)
[2018-12-04] MEDS: LISINOPRIL 20 MG TABLET PO SCH (08:37)
[2018-12-04] MEDS: ASPIRIN ENTERIC COATED 81 MG TABLET.DR. PO SCH (08:37)
[2018-12-04] MEDS: ACETAMINOPHEN 325 MG TABLET. PO PRN (08:37)
[2018-12-04] MEDS: CLOPIDOGREL BISULFATE 75 MG TABLET PO SCH (08:37)
[2018-12-04] MEDS: METOPROLOL SUCC 24HR ER 25 MG TAB.ER.24H. PO SCH (08:38)
--- NOTE | 2018-12-04 10:44 | PDOC3 ---
Discharge Summary Visit Information Date of Admission: Nov 29, 2018 Date of Discharge: Dec 04, 2018 Admitting Diagnosis Comment: 1. Ischemic cardiomyopathy with an ejection fraction of 40-45%, three-vessel coronary disease status post PCI to the RCA and left circumflex 2. Iatrogenic right subclavian dissection, currently resolved 3. 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 Hypertension 5. Dyslipidemia 6. Severe tobacco abuse Final Diagnosis Problems Medical Problems: (1) Non-STEMI (non-ST elevated myocardial infarction) Status: Acute Brief Hospital Course Allergies Allergies Coded Allergies Type Severity Reaction Last Updated Verified amlodipine Allergy Severe Swelling 11/29/18 Yes ezetimibe Allergy Intermediate 11/29/18 Yes Nynywcd-Zlc-Tzv Reductase Inhibitor Adverse Reaction Intermediate CRAMPS Yes Vital Signs Vital Signs Date Time Temp Pulse Resp B/P (MAP) Pulse Ox O2 Delivery O2 Flow Rate FiO2 12/04/18 08:38 68 132/64 12/04/18 08:17 Nasal Cannula 4.0 12/04/18 07:00 98.5 18 96 98.5 Lab Results Laboratory Tests Test 12/02/18 10:57 12/02/18 13:50 12/02/18 16:56 12/02/18 21:37 Glucose (Fingerstick) 103 mg/dL (70-99) 122 mg/dL (70-99) 99 mg/dL (70-99) Heparin Anti-Xa Act, Unfractionated 0.56 IU/mL (0.30-0.70) Test 12/03/18 08:24 12/03/18 12:27 12/03/18 17:41 12/03/18 21:05 Glucose (Fingerstick) 92 mg/dL (70-99) 105 mg/dL (70-99) 127 mg/dL (70-99) 114 mg/dL (70-99) Test 12/04/18 08:10 Glucose (Fingerstick) 91 mg/dL (70-99) Laboratory Tests Test 12/03/18 12:27 12/03/18 17:41 12/03/18 21:05 12/04/18 08:10 Glucose (Fingerstick) 105 mg/dL (70-99) 127 mg/dL (70-99) 114 mg/dL (70-99) 91 mg/dL (70-99) Brief Hospital Course Ms. Read is a 73 old white female who is a smoker admitted for N STEMI and underwent PCI to RCA and left circumflex. She has three-vessel disease. Started on aspirin Plavix beta drake lisinopril and Chantix. She was not on any blood thinners prior to admission. She will follow-up with cardiology probably 4 weeks time on discharge. COunselled on her smoking, NO Rehabilitation needs Patient seen and examined Rx has been done by colleague Dr. June dc < 30 mins Pt seen and examined, ifeoma RN óscar Discharge Information Condition at Discharge: Improved, Stable Follow Up: Weeks (cards as instructed, ashley 4 weeks) Disposition/Orders: D/C to Home Scheduled Aspirin (Aspirin Ec) 325 Mg Tablet.dr, 325 MG PO DAILYWBKFT for CAD for 30 Days , #30 Prescribed by: RASHEED WONG MD on 11/30/18 0845 Clopidogrel Bisulfate (Clopidogrel) 75 Mg Tablet, 75 MG PO DAILYWBKFT for CAD for 30 Days, #30 Ref 5 Prescribed by: RASHEED WONG MD on 11/30/18 0845 Cyclobenzaprine Hcl (Cyclobenzaprine Hcl) 5 Mg Tablet, 5 MG PO TID for muscle cramps, (Reported) Entered as Reported by: CHIO FREDERICK on 11/29/18 0050 Last Taken: Unknown Dose on Unknown Date & Time Last Action: Reviewed on 11/29/181120 by FRANCISCO DE LEON Fluoxetine Hcl (Fluoxetine Hcl) 40 Mg Capsule, 60 MG PO DAILY for anti depression, (Reported) Entered as Reported by: FRANCISCO DE LEON on 11/29/181120 Last Action: New Order on 11/29/181120 by FRANCISCO DE LEON Hydrochlorothiazide (Hydrochlorothiazide Capsule ) 12.5 Mg Capsule, 12.5 MG PO DAILY for DIURETIC, Ref 0 (Reported) Entered as Reported by: FRANCISCO DE LEON on 11/29/181120 Last Action: New Order on 11/29/181120 by FRANCISCO DE LEON Hyoscyamine Sulfate (Levsin-Sl) 0.125 Mg Tab.subl, 1-2 TAB SL PRN Q4HRS for IBS , #60 Ref 1 (Reported) Entered as Reported by: FRANCISCO DE LEON on 11/29/181120 Last Action: New Order on 11/29/181120 by FRANCISCO DE LEON Lisinopril (Lisinopril) 5 Mg Tablet, 5 MG PO DAILY for HTN/CAD for 30 Days, #30 Ref 5 Prescribed by: RASHEED WONG MD on 11/30/18 0845 Metformin Hcl (Metformin Hcl) 500 Mg Tablet, 500 MG PO DAILYWBKFT for ANTI- DIABETIC, Ref 0 (Reported) Entered as Reported by: FRANCISCO DE LEON on 11/29/181120 Last Action: New Order on 11/29/181120 by FRANCISCO DE LEON Metoprolol Succinate (Metoprolol Succinate ( Xl )) 25 Mg Tab.er.24h, 1 TAB PO DAILY for CAD for 30 Days, #30 Ref 5 Prescribed by: RASHEED WONG MD on 11/30/18 0848 Pantoprazole Sodium (Protonix) 20 Mg Tablet.dr, 40 MG PO DAILY for GERD, ( Reported) Entered as Reported by: FRANCISCO DE LEON on 11/29/181120 Last Action: New Order on 11/29/181120 by FRANCISCO DE LEON Potassium Chloride (Potassium Chloride) 10 Meq Tablet.er, 10 MEQ PO BID for supplement, (Reported) Entered as Reported by: FRANCISCO DE LEON on 11/29/181120 Last Action: New Order on 11/29/181120 by FRANCISCO DE LEON Ropinirole Hcl (Requip) 0.5 Mg Tablet, 0.25 MG PO BID for RLS, (Reported) Entered as Reported by: FRANCISCO DE LEON on 11/29/181120 Last Action: New Order on 11/29/181120 by FRANCISCO DE LEON Trazodone Hcl (Trazodone Hcl) 150 Mg Tablet, 1 TAB PO QHS, #30 Ref 1 (Reported) Entered as Reported by: Lesley Branch on 10/15/172149 Last Action: Reviewed on 11/29/181120 by FRANCISCO DE LEON Varenicline Tartrate (Chantix) 0.5 Mg Tablet, 0.5 MG PO DIRECTED for Smoking cessation for 42 Days, #11 0.5 MG PO DAILY X3 DAY, 0.5 MG PO BID X4 DAY, 1 MG PO BID UNTIL END OF TREATMENT Disp 11 0.5mg tabs and 42 1mg tabs Prescribed by: RASHEED WONG MD on 11/30/18 0845 Scheduled PRN Benzonatate (Benzonatate) 100 Mg Capsule, 100 MG PO TID PRN for COUGH, (Reported ) Entered as Reported by: FRANCISCO DE LEON on 11/29/181120 Last Action: New Order on 11/29/181120 by FRANCISCO DE LEON Hydroxyzine Hcl (Hydroxyzine Hcl) 25 Mg Tablet, 25 MG PO PRN Q8HRS PRN for ALLERGIES, (Reported) Entered as Reported by: FRANCISCO DE LEON on 11/29/181120 Last Action: New Order on 11/29/181120 by FRANCISCO DE LEON Discontinued Medications Azithromycin (Zithromax Packet) 1 Gm Packet, 1 PACKET PO ONCE, #1 (Reported) Entered as Reported by: STEWART ZARATE RN on 10/16/17 113 Last Action: Discontinued on 11/29/18 0016 by CHIO FREDERICK Doxycycline Hyclate (Doxycycline Hyclate) 100 Mg Capsule, 1 CAP PO BID for antidepression, #20 (Reported) Entered as Reported by: FRANCISCO DE LEON on 11/29/181120 Last Action: New Order on 11/29/181120 by BRANDO FOSTER MD Dec 04, 2018 10:44
[2018-12-04 11:00] VITALS: BP 134/60
--- NOTE | 2018-12-04 12:20 | PDOC ---
GRECIA DAY SHANK INSPECTOR 12/04/18 1220: CARDIO Progress Notes Date and Time Date of Service 12/04/18 Time of Evaluation 1120 Subjective Subjective: No shortness of breath, No Palpitations, Other (chest pain basically resolved) Vitals Vitals Vital Signs Date Time Temp Pulse Resp B/P (MAP) Pulse Ox O2 Delivery O2 Flow Rate FiO2 12/04/18 08:38 68 132/64 12/04/18 08:17 Nasal Cannula 4.0 12/04/18 07:00 98.5 18 96 98.5 Weight Weight [ ] Input and Output Intake and Output Intake and Output 12/04/18 06:59 Intake Total 1040 ml Balance 1040 ml Intake Oral 1040 ml # Voids 3 Laboratory Labs Laboratory Tests Test 12/03/18 12:27 12/03/18 17:41 12/03/18 21:05 12/04/18 08:10 Glucose (Fingerstick) 105 mg/dL (70-99) 127 mg/dL (70-99) 114 mg/dL (70-99) 91 mg/dL (70-99) Test 12/04/18 11:34 Glucose (Fingerstick) 96 mg/dL (70-99) Physical Exam HEENT: Neck Supple W Full Motion Chest: Symmetric LUNGS: Clear to Auscultation Heart: S1S2, RRR Abdomen: Soft N/T Extremities: No Edema, Other (right groin soft and dry. No erythema, ecchymosis, or hematoma present. Bilateral neurovascular status intact.) Neurology: alert, oriented, follow commands Assessment Assessment 1. CAD; s/p PCI/DUSTIN to RCA and LCx 2. 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 stable. no obvious complications 3. Right subclavia dissection, resolved 4. ICM; LVEF 40%. Compensated 5. Hypertension; controlled 6. Hyperlipidemia; hx stain intolerance 7. Tobaccoism; discussed/encouraged cessation Recommendations Secondary prevention measures; ASA, Plavix, BB, ACEi. Allergy to statins- consider for PCSK9 inhibitor as an outpatient Risk stratification modification Cardiac rehab referral May discharge from a CV standpoint and f/u in our office with Dr. Kessler as scheduled. VIRGINIA KESSLER MD 12/04/18 5887: CARDIO Progress Notes Plan Plan Patient seen and examined. Agree with above nurse practitioner note. Okay to discharge from a cardiac standpoint. Overall doing quite well. No chest pain. Supportive care for now. Follow-up in the office GRECIA DAY APRN Dec 04, 2018 12:20 VIRGINIA KESSLER MD Dec 04, 2018 17:54
[2018-12-04 12:49] VITALS: BP 134/60
--- NOTE | 2018-12-04 13:01 | NUR ---
Discharge Note: ESPERANZA THOMAS Discharge instructions and discharge home medications reviewed with Patient and a copy given. All questions have been answered and understanding verbalized. The following instructions and handouts were given: CP, NSTEMI, smoking cessation Discontinued lines and drains: Peripheral IV intact. Patient discharged to Home or Self Care with Family Member via Wheelchair
== END 2018-12-04 13:05 | disposition home or self-care (01) | DRG 250 ==
LOC: ER 23:16 → 2 SOUTH 11-29 00:39 → 1 WEST ICU 11-29 11:11 → 2 SOUTH 11-30 18:17 → 1 WEST ICU 12-01 15:17 → 2 NORTH 12-02 17:45
PROVIDERS: ADMIT Family Medicine; ATTEND Family Medicine
PROC: 02703ZZ Dilation of Coronary Artery, One Artery, Percutaneous Approach (ICD-10-PCS; principal; 2018-11-29)
PROC: 4A023N7 Measurement of Cardiac Sampling and Pressure, Left Heart, Percutaneous Approach (ICD-10-PCS; 2018-11-29)
PROC: B2111ZZ Fluoroscopy of Multiple Coronary Arteries using Low Osmolar Contrast (ICD-10-PCS; 2018-11-29)
PROC: B2151ZZ Fluoroscopy of Left Heart using Low Osmolar Contrast (ICD-10-PCS; 2018-11-29)
PROC: 02703ZZ Dilation of Coronary Artery, One Artery, Percutaneous Approach (ICD-10-PCS; 2018-12-01)
PROC: 4A023N7 Measurement of Cardiac Sampling and Pressure, Left Heart, Percutaneous Approach (ICD-10-PCS; 2018-12-01)
PROC: B2111ZZ Fluoroscopy of Multiple Coronary Arteries using Low Osmolar Contrast (ICD-10-PCS; 2018-12-01)
PROC: B41F1ZZ Fluoroscopy of Right Lower Extremity Arteries using Low Osmolar Contrast (ICD-10-PCS; 2018-12-01)
DX: T82.855A Stenosis of coronary artery stent, initial encounter (principal); I21.4 Non-ST elevation (NSTEMI) myocardial infarction; I50.43 Acute on chronic combined systolic (congestive) and diastolic (congestive) heart failure; I77.76 Dissection of artery of upper extremity; I97.89 Other postprocedural complications and disorders of the circulatory system, not elsewhere classified; J44.9 Chronic obstructive pulmonary disease, unspecified; E11.9 Type 2 diabetes mellitus without complications; I11.0 Hypertensive heart disease with heart failure; I25.5 Ischemic cardiomyopathy; K21.9 Gastro-esophageal reflux disease without esophagitis; E78.00 Pure hypercholesterolemia, unspecified; I25.10 Atherosclerotic heart disease of native coronary artery without angina pectoris; F17.210 Nicotine dependence, cigarettes, uncomplicated; E78.5 Hyperlipidemia, unspecified; Z96.651 Presence of right artificial knee joint; Y83.8 Other surgical procedures as the cause of abnormal reaction of the patient, or of later complication, without mention of misadventure at the time of the procedure; Y92.89 Other specified places as the place of occurrence of the external cause; Z95.5 Presence of coronary angioplasty implant and graft; Z90.710 Acquired absence of both cervix and uterus; Z88.8 Allergy status to other drugs, medicaments and biological substances; Z82.49 Family history of ischemic heart disease and other diseases of the circulatory system; Z83.3 Family history of diabetes mellitus; I77.0 Arteriovenous fistula, acquired
CPT/HCPCS: 92920; 93458; 93567; 99285; G0269; 36415; 71045; 80048; 80053; 80061; 82962; 83735; 84484; 85025; 85027; 85347; 85379; 85520; 87641; 93005; 93306; 93880; 93926; 96361; 96374; 96375; 99152; 99153; C1713; C1725; C1760; C1769; C1874; C1887; C1892; J0583; J1644; J1815; J2250; J2270; J2405; J3010; J3475; J3490; J7030; Q9967; 92610; C1771

== ENCOUNTER → 2020-05-06 | Outpatient (CLI) | payer MEDICARE, BC ==
[2019-01-24 11:00] VITALS: BP 119/60
[~2020-05-06] MED LIST changes: +ASPI325T11 PO; +BENZ-8 PO; +CLOP75TA PO; +CYCL5TAB PO; +DOXY100C2 PO; +FLUO40CA2 PO; +HYDR12.575 PO; +HYDR25TA PO; +HYOS0.1265 SL; +LISI-338 PO; +METF500T16 PO; +METO-239 PO; +PANT20TA2 PO; +POTASSIUM CHLO10 ME1 PO; +ROPI0.5T PO; +VARE0.5T PO
--- NOTE | 2020-05-06 14:44 | RAD ---
MR#: [id number] Date of Study: 05/06/2020 Ordering Physician: VIRGINIA SINGH, Referring Physician: VIRGINIA SINGH, Tech: Yousuf Espinal MBA, RDMS, RVT, RDCS, RTR APPROVED REPORT Patient Location: OUT-PATIENT Indications PAD VELOCITY AND DOPPLER WAVEFORM ANALYSIS RIGHT cm/secWaveformSeverity LEFT cm/secWaveform Severity dCFA 142.0MonophasicdCFA 75.0Monophasic Prof Fem Art. 154.0MonophasicProf Fem Art. 117.0Monophasic Fem Art Prox. 55.0MonophasicFem Art Prox. Occluded Fem Art Mid. OccludedFem Art Mid. Occluded Fem Art Dist. 75.0MonophasicFem Art Dist. Occluded Pop Art(Fossa) 44.0MonophasicPop Art(AK) 28.0Monophasic HEMATOLOGIST Prox. 12.0MonophasicPTA Prox. 22.0Monophasic HEMATOLOGIST Dist. 13.0MonophasicPTA Dist. 20.0Monophasic ARMANDO Prox. 23.0MonophasicATA Prox. 29.0Monophasic DPA 20MonophasicDPA 16Monophasic Image Findings Grayscale images of the bilateral lower extremity arterial vessels demonstrate moderate to severe dif fuse plaque. On the right side the mid to distal SFA appears to be occluded. There is reconstitution at the level of the popliteal artery with severely diminished flow in a monophasic wave pattern below the knee. The right peroneal artery is not visualized. On the left side the SFA is likely occluded from the proximal to the distal segment. Again there is reconstitution at the level of popliteal artery although the velocities are severely diminished with two-vessel runoff below the knee with again the peroneal artery not being well visualized. No high-grade BOATBUILDER SUPERVISOR disease is noted bilaterally. Critical Notification Critical Value: No <Conclusion> 1. Bilateral SFA occlusions with severely diminished velocities below the knee. Signed by : Virginia Singh, Electronically Approved : 05/06/2020 14:44:28
--- NOTE | 2020-05-06 14:45 | RAD ---
MR#: [id number] Date of Study: 05/06/2020 Ordering Physician: VIRGINIA SINGH, Referring Physician: VIRGINIA SINGH, Tech: Yousuf Espinal MBA, RDMS, RVT, RDCS, RTR APPROVED REPORT Patient Location: OUT-PATIENT Indications PAD Findings Nondiagnostic bilateral ankle-brachial indices due to calcification and lack of compressibility. Critical Notification Critical Value: No <Conclusion> 1. Nondiagnostic study. Signed by : Virginia Singh, Electronically Approved : 05/06/2020 14:45:16
--- NOTE | 2020-05-06 14:46 | RAD ---
MR#: [id number] Date of Study: 05/06/2020 Ordering Physician: VIRGINIA SINGH, Referring Physician: VIRGINIA SINGH, Tech: Yousuf Espinal MBA, RDMS, RVT, RDCS, RTR APPROVED REPORT Patient Location : OUT-PATIENT Indications PAD Greater Saphenous Veins (GSV) Significant venous relux noted in the RIGHT GSV at the following levels : Superficial Femoral Junctio n Findings Grayscale images of the bilateral saphenofemoral junctions are grossly unremarkable. The right great saphenous vein measures 4.4 mm and has no significant reflux. The left great sapheno us vein measures 4.7 mm and does not have any significant reflux. The bilateral lesser saphenous veins did not show any evidence of significant reflux. Critical Notification Critical Value: No <Conclusion> 1. Negative for reflux in the bilateral greater and lesser saphenous veins. Signed by : Virginia Singh, Electronically Approved : 05/06/2020 14:46:25
== END | disposition home or self-care (01) ==
LOC: US 12:10
PROVIDERS: ATTEND Internal Medicine Cardiovascular Disease
DX: I70.203 Unspecified atherosclerosis of native arteries of extremities, bilateral legs (principal); I70.8 Atherosclerosis of other arteries
CPT/HCPCS: 93922; 93925; 93970

== ENCOUNTER → 2020-05-12 | Outpatient (CLI) | payer MEDICARE, BC ==
[2019-01-24 11:00] VITALS: BP 119/60
--- NOTE | 2020-05-12 14:46 | CARD ---
MR#: [id number] Date of Study: 05/12/2020 Ordering Physician: VRIGINIA SINGH, Referring Physician: VIRGINIA SINGH, Tech: Chiara Oconnell [facility] APPROVED REPORT EXAM: Two-dimensional and M-mode echocardiogram with Doppler and color Doppler. Other Information Quality : Good INDICATION Cardiac Disease: CAD 2D DIMENSIONS RVDd2.9 (2.9-3.5cm)Left Atrium(2D)3.0 (1.6-4.0cm) IVSd1.0 (0.7-1.1cm)Aortic Root(2D)2.9 (2.0-3.7cm) LVDd4.0 (3.9-5.9cm)LVOT Diameter2.0 (1.8-2.4cm) PWd1.0 (0.7-1.1cm)LVDs2.2 (2.5-4.0cm) FS (%) 30.0 %SV53.7 ml LVEF(%)60.0 (>50%) Aortic Valve AoV Peak Rik.112.2cm/sAoV VTI20.8cm AO Peak GR.5.0mmHgLVOT Peak Rik.100.7cm/s AO Mean GR.2mmHgAVA (VMAX)2.74cm2 NISA (VTI)3.00cm2 Mitral Valve MV E Zlrpetrj46.5cm/sMV DECEL YUFS106tt MV A Xuegddzb55.0cm/sE/A Ratio0.8 Pulmonary Vein S1 Fzufubbl74.4cm/sD2 Ekftiqsp48.9cm/s LEFT VENTRICLE The left ventricle is normal size. There is mild to moderate concentric left ventricular hypertrophy. The left ventricular systolic function is normal and the ejection fraction is within normal range. T he Ejection Fraction is 55-60%. There is normal LV segmental wall motion. Transmitral Doppler flow pa ttern is Grade I-abnormal relaxation pattern. RIGHT VENTRICLE The right ventricle is normal size. The right ventricle is mildly to moderately hypertrophied. The ri ght ventricular systolic function is normal. ATRIA The left atrium size is normal. The right atrium size is normal. The interatrial septum is intact wit h no evidence for an atrial septal defect or patent foramen ovale as noted on 2-D or Doppler imaging. AORTIC VALVE The aortic valve is calcified but opens well. Doppler and Color Flow revealed no significant aortic r egurgitation. There is no significant aortic valvular stenosis. MITRAL VALVE The mitral valve is calcified but opens well. There is no evidence of mitral valve prolapse. There is no mitral valve stenosis. Doppler and Color-flow revealed trace mitral regurgitation. TRICUSPID VALVE The tricuspid valve is normal in structure and function. Doppler and Color Flow revealed no tricuspid valve regurgitation noted. There is no tricuspid valve stenosis. PULMONIC VALVE The pulmonic valve is not well visualized. Doppler and Color Flow revealed no pulmonic valvular regur gitation. There is no pulmonic valvular stenosis. GREAT VESSELS The aortic root is normal in size. The ascending aorta is not well seen. The IVC is normal in size an d collapses >50% with inspiration. PERICARDIAL EFFUSION There is no evidence of significant pericardial effusion. Critical Notification Critical Value: No <Conclusion> There is mild to moderate concentric left ventricular hypertrophy. The left ventricular systolic function is normal and the ejection fraction is within normal range. Th e Ejection Fraction is 55-60%. There is normal LV segmental wall motion. The right ventricle is mildly to moderately hypertrophied. Signed by : Virginia Singh, Electronically Approved : 05/12/2020 14:46:32
== END | disposition home or self-care (01) ==
LOC: ECHO 12:40
PROVIDERS: ATTEND Internal Medicine Cardiovascular Disease
DX: I08.0 Rheumatic disorders of both mitral and aortic valves (principal); I25.10 Atherosclerotic heart disease of native coronary artery without angina pectoris; I73.9 Peripheral vascular disease, unspecified
CPT/HCPCS: 93306

== ENCOUNTER 2020-06-19 09:19 | Observation (INO) | payer MEDICARE, BC ==
[2020-06-19] VITALS (14 sets, daily range): BP systolic 96–136; BP diastolic 58–83
[~2020-06-19] VITALS: Ht 162.6 cm; Wt 71.7 kg
[2020-06-19] MEDS ORDERED: LIDOCAINE 1% Multi-Dose 20 ML VIAL. ONE (09:48)
[2020-06-19] MEDS ORDERED: IODIXANOL 320 MG/ML 100 ML VIAL. ONE (09:48)
[2020-06-19] MEDS ORDERED: ASPI-630 PO (10:05)
[2020-06-19 10:08] LABS: HEMATOCRIT 42.9 % (36.0-47.0); HEMOGLOBIN 13.8 g/dL (12.0-15.5); RED BLOOD COUNT 5.09 x10^6/uL (3.50-5.40); RED CELL DISTRIBUTION WIDTH 15.1 % (11.5-14.5); WHITE BLOOD COUNT 8.7 x10^3/uL (4.0-11.0)
[2020-06-19 10:15] LABS: CALCIUM 9.1 mg/dL (8.5-10.1); CREATININE 0.9 mg/dL (0.6-1.0); GFR 61.4; POTASSIUM 3.7 mmol/L (3.5-5.1)
[2020-06-19 10:39] LABS: PROTHROMBIN TIME PATIENT 13.3 SEC (11.7-14.0)
[2020-06-19] MEDS ORDERED: fentaNYL PF VIAL 100 MCG/2 ML VIAL ONE (11:42)
[2020-06-19] MEDS ORDERED: HEPARIN for IV BOLUS 10,000 UNIT/10 ML VIAL. ONE (11:42)
[2020-06-19] MEDS ORDERED: MIDAZOLAM HCL/PF 2 MG/2 ML VIAL. ONE (11:42)
--- NOTE | 2020-06-19 11:53 | PDOC ---
MODERATE SEDATION ASSESSMENT RISKS/ALTERNATIVES Risks/Alternatives Risks and alternatives of this type of sedation and procedure discussed with: RISK/ALTERNATIVES: Patient H & P ON CHART H & P H & P on chart and reviewed for co-morbid conditions and appropriate labs. H&P ON CHART: Yes STATUS PREG STATUS ASSESSED: N/A MEDS/ALLERGIES REVIEWED Meds/Allergies Reviewed Medications and Allergies including time and route of recently administered narcotics and sedatives. MEDS/ALLERGIES REVIEWED: Yes ASA RATING ASA RATING: II AIRWAY ASSESSMENT Airway Assessment Airway patency, oral function limitations, presence of caps, crowns, dentures, partials, and ability to extend neck assessed. AIRWAY ASSESSMENT: Yes MALLAMPATI SCORE MALLAMPATI SCORE: II PRE-SEDATION ASSESSMENT PRE-SEDATION ASSESSMENT: Yes VIRGINIA SIGNH MD Jun 19, 2020 11:53
[2020-06-19] MEDS ORDERED: LIDOCAINE 1% Multi-Dose 20 ML VIAL. INJ ONE (12:30)
[2020-06-19] MEDS ORDERED: fentaNYL PF VIAL 100 MCG/2 ML VIAL IV ONE (12:30)
[2020-06-19] MEDS ORDERED: IODIXANOL 320 MG/ML 100 ML VIAL. IART ONE (12:30)
[2020-06-19] MEDS ORDERED: MIDAZOLAM HCL/PF 2 MG/2 ML VIAL. IV ONE (12:30)
[2020-06-19] MEDS ORDERED: CONTRAST GIVEN. MC PRN (12:45)
--- NOTE | 2020-06-19 15:40 | NUR ---
Pt completed laying flat recovery period and now sitting up in bed. Groin site remains dry and intact. Family at bedside. YENI RN
--- NOTE | 2020-06-19 15:44 | CARD ---
MR#: [id number] Date of Study: 06/19/2020 Ordering Physician: VIRGINIA KESSLER, Referring Physician: VIRGINIA KESSLER, Tech: Halina Yan RT(R) APPROVED REPORT Patient StatusOUT-PATIENT Cuff Matcher: Halina Yan RT(R) Procedure(s) performed: Sedation Time: 48 Minutes Dose: 35 Gycm2 Fluoro Time: 4.4 Minutes Contrast: 69 mL Visipaque Abdominal aortogram with iliofemoral run-off (bilateral) Catheter placement retrograde in the aorta and Right external iliac artery and right common femoral a rtery. HISTORY The patient is a 75 year-old female with a history of : tobacco history() , hypertension, dyslipidemi a. INDICATION FOR PROCEDURE The indication(s) include : Bilateral claudication, +Right leg wound. PROCEDURE NARRATIVE After appropriate informed consent the patient was brought to the catheterization laboratory. The [facility] groin was prepped and draped in usual sterile fashion. Under 2% lidocaine local anesthesia a 5 Fr ench introducer sheath was placed in the left common femoral artery. Next, a 5 Swiss Omni Flush cat heter was advanced to the abdominal aorta and a digital subtraction angiography imaging was performed . Next with the aid of a J-tip guidewire and the Omni Flush catheter the right external iliac artery and common femoral artery were engaged. Right lower extremity digital subtraction angiography was t hen performed. Finally a pullback across the right external iliac artery did not reveal any signific ant pressure drop and the left lower extremity arterial angiography was performed. At case [facility] n the left femoral sheath was removed and hemostasis was achieved with manual compression. No acute complications were noted. Findings: Aorta: Mild tortuosity without any critical stenosis Bilateral renal arteries are widely patent Bilateral common iliac arteries did not show any evidence of significant disease Bilateral external iliac arteries did not reveal any significant disease Bilateral internal iliac arteries were not well visualized Right common femoral artery has a mild 30% stenosis Right profundofemoral artery is a large-caliber vessel which provides robust collaterals to the dista l SFA. The right SFA is severely diseased diffusely with a mid to distal 100% occlusion. The right popliteal artery has moderate diffuse disease in the P1 segment of up to 50 to 60% The right peroneal artery is patent with proximal diffuse 50% stenosis The right anterior tibial artery is patent without any significant disease and provides the most robu st flow to the foot. The right posterior tibial artery is occluded proximally with faint distal reconstitution. The left common femoral artery has no significant disease The left SFA has an ostial occlusion The left profunda femoris provides collateral circulation to the distal SFA. The left popliteal artery has mild disease of up to 30% The left anterior tibial, posterior tibial and peroneal vessels are widely patent in the proximal and mid segments. The distal vessels were not well visualized. Conclusion 1. Bilateral Nicolasa category 2- 3 claudication 2. Bilateral severe SFA disease with two-vessel runoff on the right and three-vessel runoff on the l eft Recommendations At this present time the patient has a chronic occlusion of the right SFA, with near complete wound h ealing of a very small web space wound involving the right fifth toe and in the setting we will sonya nue exercise and risk factor modification. If patient has any significant worsening of symptoms or d evelops wounds could consider treatment at that time. Signed by : Virginia Kessler, Electronically Approved : 06/19/2020 15:43:20
--- NOTE | 2020-06-19 16:32 | NUR ---
Dr Kessler here to see patient and family prior to discharge. Questions answered. Pt ambulated to with steady gait. Discharge Note: ESPERANZA THOMAS Discharge instructions and discharge home medications reviewed with Patient and a copy given. All questions have been answered and understanding verbalized. Groin site remains dry and intact. The following instructions and handouts were given: groin site care, moderate sedation Discontinued lines and drains: Peripheral IV intact. Patient discharged to Home or Self Care with Family Member via Wheelchair YENI RN Addendum: 06/19/20 at 1634 by MARCK PIERCE RN Amended: Links added.
== END 2020-06-19 17:33 | disposition home or self-care (01) ==
LOC: CCL 09:19 → 2 SOUTH 11:30 → INTOOBSV 11:30
PROVIDERS: ADMIT Internal Medicine Cardiovascular Disease; ATTEND Internal Medicine Cardiovascular Disease
DX: I73.9 Peripheral vascular disease, unspecified (principal); I10 Essential (primary) hypertension; E78.5 Hyperlipidemia, unspecified; F17.200 Nicotine dependence, unspecified, uncomplicated; Z79.899 Other long term (current) drug therapy
CPT/HCPCS: 36245; 36415; 75625; 75716; 80048; 85027; 85610; 96374; 96375; 99152; 99153; C1769; C1892; G0378; G0379; J1644; J2250; J3010; J3490; Q9967

== ENCOUNTER → 2021-07-03 | Outpatient (CLI) | payer MEDICARE, BC ==
[2021-03-03 11:00] VITALS: BP 149/52
[~2021-07-03] MED LIST changes: +ALEN70TA71 PO; +ASPI-630 PO; +AZIT250T6 PO; +BUDE0.5A NEB; +CEFD300C PO; +CHOL5000 PO; +DOCU-148 PO; -DOXY100C2 PO; +DOXY100C3 PO; +FLUO20CA22 PO; +FLUO60TA PO; +GUAI237L83 PO; +HYDR25TA10 PO; +INSU100V35 SQ; +IPRA3AMP29 NEB; +LACT1CAP19 PO; -LISI-338 PO; +LISI5TAB15 PO; +OXYC1TAB15 PO; +PANT40TA6 PO; +POLY17PO29 PO
--- NOTE | 2021-07-03 16:38 | KCIC ---
STUDY: MRI of the left shoulder without contrast INDICATION: Left shoulder pain. History of a proximal left humerus fracture status post hardware fixa tion. COMPARISON: No prior MRI. TECHNIQUE: Multiplanar MR imaging of the left shoulder performed without the use of intravenous or in tra-articular contrast. FINDINGS: Despite sequence adjustments the study is limited due to extensive susceptibility artifact associated with proximal humerus surgical hardware. AC joint: Presumed sequela of subacromial decompression given the configuration of the AC interface. Rotator cuff: The rotator cuff tendons are poorly evaluated at their tuberosity attachments. No signi ficant fatty infiltration or atrophy of the rotator cuff musculature nor muscular edema. Labrum: Not fully evaluated. Labral tissue is able to be seen inferiorly but is poorly visualized at the superior aspect likely at least in part from degenerative attrition. Long head biceps tendon: The intra-articular portion is not able to be visualized. Cartilage/bones: Presumably there is both humeral head and glenoid chondral loss given osteophytic pr oliferation along both articular surfaces. No evidence for a recent fracture of the adequately assess ed bones. Miscellaneous: No overt pericapsular soft tissue edema. Small joint effusion best seen at the subscap ularis recess. Impression: 1. Significantly limited study due to the extent of artifact induced by proximal humerus surgical [place]les[place] rdware. 2. The rotator cuff tendons are not able to be evaluated at their insertions but there is no signifi cant muscular atrophy/fatty infiltration or findings of subacute denervation to suggest a recent or c hronic high-grade or full-thickness tear. 3. Presumed degenerative attrition of portions of the labrum. The intra-articular long head biceps i s not visualized. Glenohumeral joint arthrosis is estimated at mild/moderate. 4. Small joint effusion. Electronically signed by: MAMTA BEAVER MD (07/03/2021 4:36 PM) [id number]
== END ==
LOC: KCIC MRI 14:37
PROVIDERS: ATTEND Student in an Organized Health Care Education/Training Program
DX: M19.012 Primary osteoarthritis, left shoulder (principal); M25.412 Effusion, left shoulder; M75.102 Unspecified rotator cuff tear or rupture of left shoulder, not specified as traumatic
CPT/HCPCS: 73221

== ENCOUNTER → 2021-08-31 | Outpatient (CLI) | payer MEDICARE, BC ==
[2021-03-03 11:00] VITALS: BP 149/52
[~2021-08-31] MED LIST changes: +IOHEXOL 300 MG/ML 50 ML VIAL. INT ART ONE; +LIDOCAINE 1% Multi-Dose 20 ML VIAL. ID ONE
--- NOTE | 2021-08-31 15:40 | KCIC ---
EXAM: Left shoulder injection WITH Fluoroscopic guidance DATE: 08/31/2021 1:51 PM CLINICAL HISTORY: Reason: LEFT SHOULDER PAIN / Spl. Instructions: FT 0:05, IMG 2, 5ML LIDOCAINE, 5ML SALINE, 10ML OMNI 300 / History: COMPARISON: None pertinent TECHNIQUE: The patient was informed of the indications and alternatives for this procedure as well as risks and benefits. No immediate contraindication identified. The patient provided informed, written consent. Laterality was confirmed by the entire team following a time out. Following initial Left shoulder localization, a suitable area was sterilely prepped and draped. Local anesthesia was administered with 1% xylocaine. With intermittent fluoroscopic observation, a 22-gaug e spinal needle was advanced into the Left shoulder sheath/capsule with confirmation of intra-synovia l position with infusion of less than 1 cc iodinated contrast. Subsequent infusion 12 mL of solution containing 5 mL lidocaine 1 percent, 5 mL normal saline, 10 mL Omnipaque 300. Hemostasis with local p ressure. Local clinical exam negative for immediate complication. Patient informed re local potential signs or symptoms that may indicate need to return to ER/Ordering physician for further evaluation. Patient informed re precautionary measures after intra-synovial in jection of anesthetic. Patient expressed understanding. Performing Physicians: Dr. Janes Chapman Blood Loss: 0 cc Total Fluoroscopy time: 5 seconds 2 images saved IMPRESSION: Successful intra-synovial injection Left shoulder with iodinated contrast pre-CT, per clinical reques t. Electronically signed by: Jaxon Chapman MD (08/31/2021 3:37 PM) [id number] CUSTOM FIELD 1
--- NOTE | 2021-08-31 16:17 | KCIC ---
EXAM: CT ARTHROGRAM, LEFT SHOULDER JOINT DATE: 08/31/2021 2:20 PM CLINICAL HISTORY: Left shoulder pain, previous humeral fracture. COMPARISON: 03/02/2021 TECHNIQUE: Following intra-articular injection of dilute iodinated contrast, axial source images were obtained through the left shoulder . 2-D and 3-D reformat images were completed at an independent wo rkstation. FINDINGS: Joint capsule: Iatrogenic distention of the left glenohumeral joint. Mild synovial thickening and debris inferiorly likely mild synovitis. Negative intra-articular loose body. Periarticular fluid: Negative contrast opacification of the subacromial/subdeltoid bursa. Tendon integrity: No definite articular sided with full-thickness rotator cuff tear. No fatty atrophy. Extra-articular biceps tendon is not seen, possibly tenodesis or tear. Labrum: Mild deformity of the superior and posterior superior labrum likely from prior surgery or degeneratio n. Anterior inferior glenohumeral capsule is not redundant. Articular cartilage: Full-thickness cartilage defect is seen at the central aspect of the humeral head. Chondral thinning anterior and anterior-inferior glenoid. Bone: Negative Hill-Sachs defect. Screw plate fixation of the proximal left humerus without hardware compli cation. Negative AC osteoarthritis. Type I acromial undersurface and negative lateral downsloping. Negative i nferior acromial enthesophyte. No acute fracture or osteonecrosis. 5-6 mm lung nodules are partially visualized in the left lung. Recommend continued follow-up as descr ibed on prior CT. IMPRESSION: 1. No rotator cuff tear is seen. 2. Full-thickness cartilage defect and chondral thinning at the central humeral head and anterior, i nferior glenoid. 3. Extra articular long head biceps tendon is not seen likely from prior tenodesis or tear. 4. Mild synovitis left shoulder joint. 5. Screw plate fixation of the proximal left humerus without hardware complication. 6. Left lung nodules, recommend continued follow-up as described on prior CT chest. Electronically signed by: Jaxon Chapman MD (08/31/2021 4:14 PM) [id number]
== END | disposition home or self-care (01) ==
LOC: KCIC 13:49
PROVIDERS: ATTEND Orthopaedic Surgery Sports Medicine
DX: M25.512 Pain in left shoulder (principal); I25.10 Atherosclerotic heart disease of native coronary artery without angina pectoris; I10 Essential (primary) hypertension; E78.00 Pure hypercholesterolemia, unspecified; J44.9 Chronic obstructive pulmonary disease, unspecified; G47.30 Sleep apnea, unspecified; K21.9 Gastro-esophageal reflux disease without esophagitis; M19.90 Unspecified osteoarthritis, unspecified site; F41.9 Anxiety disorder, unspecified; F32.9 Major depressive disorder, single episode, unspecified; E11.9 Type 2 diabetes mellitus without complications; Z90.710 Acquired absence of both cervix and uterus; Z98.890 Other specified postprocedural states; Z79.82 Long term (current) use of aspirin; Z79.4 Long term (current) use of insulin; Z87.891 Personal history of nicotine dependence; Z88.8 Allergy status to other drugs, medicaments and biological substances
CPT/HCPCS: 23350; 73201; 77002; J3490; Q9967

== ENCOUNTER 2022-01-07 09:37 | Outpatient (CLI) | payer MEDICARE, BC ==
[2022-01-07] VITALS (13 sets, daily range): BP systolic 141–178; BP diastolic 68–87
[~2022-01-07] VITALS: Ht 160 cm; Wt 72.7 kg
[~2022-01-07 09:37] MED LIST changes: -IOHEXOL 300 MG/ML 50 ML VIAL. INT ART ONE; -LIDOCAINE 1% Multi-Dose 20 ML VIAL. ID ONE
[2022-01-07 10:17] LABS: BASO # 0.1 x10^3/uL (0.0-0.2); BASO % 1 % (0-3); EOS # 0.2 x10^3/uL (0.0-0.7); EOS % 4 % (0-3); HEMATOCRIT 42.1 % (36.0-47.0); HEMOGLOBIN 13.7 g/dL (12.0-15.5); LYMPH # 1.8 x10^3/uL (1.0-4.8); LYMPH % 31 % (24-48); MEAN CORPUSCULAR HEMOGLOBIN 27 pg (25-35); MEAN CORPUSCULAR HGB CONC 33 g/dL (31-37); MEAN CORPUSCULAR VOLUME 83 fL (79-100); MONO # 0.5 x10^3/uL (0.0-1.1); MONO % 9 % (0-9); NEUT # 3.2 x10^3/uL (1.8-7.7); NEUT % 56 % (31-73); PLATELET COUNT 181 x10^3/uL (140-400); RED BLOOD COUNT 5.05 x10^6/uL (3.50-5.40); RED CELL DISTRIBUTION WIDTH 15.8 % (11.5-14.5); WHITE BLOOD COUNT 5.8 x10^3/uL (4.0-11.0)
[2022-01-07 10:28] LABS: CALCIUM 8.9 mg/dL (8.5-10.1); CREATININE 0.8 mg/dL (0.6-1.0); GFR 70.1; POTASSIUM 3.7 mmol/L (3.5-5.1)
[2022-01-07 10:33] LABS: PROTHROMBIN TIME PATIENT 14.1 SEC (11.7-14.0)
[2022-01-07] MEDS ORDERED: IODIXANOL 320 200 ML in NS 200 ML IART ONE (11:00)
[2022-01-07] MEDS ORDERED: POTA-112 PO (11:03)
[2022-01-07] MEDS ORDERED: EZET10TA20 PO (11:03)
[2022-01-07] MEDS ORDERED: HYDR12.58 PO (11:03)
[2022-01-07] MEDS ORDERED: NITR0.4T22 SL (11:03)
[2022-01-07] MEDS ORDERED: DOCO1CAP2 PO (11:03)
[2022-01-07] MEDS ORDERED: METF500T16 PO (11:04)
[2022-01-07] MEDS ORDERED: CONTRAST GIVEN. MC PRN (11:15)
[2022-01-07] MEDS ORDERED: LIDOCAINE 1% Multi-Dose 20 ML VIAL. ONE (11:26)
[2022-01-07] MEDS ORDERED: ASPI-630 PO (11:27)
[2022-01-07] MEDS ORDERED: MIDAZOLAM HCL/PF 2 MG/2 ML VIAL. ONE (11:29)
[2022-01-07] MEDS ORDERED: fentaNYL PF VIAL 100 MCG/2 ML VIAL ONE (11:29)
[2022-01-07] MEDS ORDERED: HEPARIN for IV BOLUS 10,000 UNIT/10 ML VIAL. ONE (11:29)
[2022-01-07] MEDS ORDERED: LIDOCAINE 1% PF 30 ML VIAL. INJ ONE (11:45)
[2022-01-07] MEDS ORDERED: fentaNYL PF VIAL 100 MCG/2 ML VIAL IV ONE (11:45)
[2022-01-07] MEDS ORDERED: MIDAZOLAM HCL/PF 2 MG/2 ML VIAL. IV ONE (11:45)
[2022-01-07] MEDS ORDERED: HEPARIN for IV BOLUS 10,000 UNIT/10 ML VIAL. IV ONE (12:30)
[2022-01-07] MEDS ORDERED: CLOPIDOGREL BISULFATE 75 MG TABLET ONE (13:20)
[2022-01-07] MEDS ORDERED: CLOPIDOGREL BISULFATE 75 MG TABLET PO ONE (13:30)
[2022-01-07] MEDS ORDERED: ACETAMINOPHEN 325 MG TABLET. PO PRN (13:30)
[2022-01-07] MEDS ORDERED: TRAM50TA PO (13:31)
[2022-01-07] MEDS ORDERED: RIVA2.5T PO (13:31)
--- NOTE | 2022-01-07 13:33 | PDOC4 ---
BRIEF OPERATIVE NOTE Date: January 07, 2022 Pre-Op Diagnosis Atherosclerosis with bilateral lower extremity lifestyle limiting claudication Hypertension Hyperlipidemia Coronary artery disease Morbid obesity Diabetes Post-Op Diagnosis Same Procedure Performed Percutaneous endovascular balloon angioplasty of the right superficial femoral artery and proximal popliteal artery using 4 mm in pact Admiral drug-eluting balloon Abdominal aortogram with bilateral lower extremity runoff Moderate sedation for the initial 15 minutes Moderate sedation for the subsequent 15 minutes for total moderate sedation time of 115 minutes Ultrasound-guided access of the left common femoral artery Left common femoral artery StarClose Surgeon Keri Glasgow DO, DEIRDRE Anesthesia Type: Conscious Sedation Blood Loss Minimal Specimens Obtained None Complications None Operative Note Moderate sedation was administered during this case. A preoperative checklist was performed. There was an independent nurse who administered moderate sedation under my direction. She had no other assigned tasks. Patient had no previous adverse reactions to moderate sedation or general anesthesia. Patient was brought to the Housing Project Manager and placed in the supine position. The left femoral location was prepped and draped in sterile fashion. Next a timeout procedure was performed. Following this a sterile ultrasound probe was utilized to visualize the left common femoral artery. The left common femoral artery was accessed using a micropuncture needle after infiltrating 1% lidocaine. The ultrasound-guided images were saved within the PACS system for billing purposes. Following this a microwire was inserted under fluoroscopy guidance. Next a small skin incision was made needle was removed and a micro sheath was inserted. An 035 Bentson wire was inserted into the abdominal aorta under fluoroscopy guidance. An Omni Flush catheter was next inserted after exchanging our micro sheath for a 5 [place]an short sheath. Next an abdominal aortogram was performed. The abdominal aortogram findings are as follows: The proximal, mid, and distal abdominal aorta are widely patent. The right and left renal arteries are widely patent. The right and left common iliac arteries are widely patent. The right and left external iliac arteries are widely patent. The right and left hypogastric arteries are widely patent. At this point her catheter was pulled back to the aortic bifurcation and a bilat eral lower extremity runoff was performed. The right lower extremity arterial findings are as follows: The right common femoral artery is widely patent, the right profundofemoral artery is widely patent, the right superficial femoral artery is patent pro ximally but then there is a chronically occluded segment through the abductor canal. This reconstitutes through profundofemoral collaterals into a diseased above-knee popliteal artery. The below-knee popliteal artery is preserved into 2 vessel runoff. The runoff is through the anterior tibial artery and peroneal artery. The posterior tibial artery does fill however a small and really cannot be seen at the level of the ankle or running into the foot. The left lower extremity arterial findings are as follows: The left common femoral artery is calcified but patent. The left profundofemoral artery is large dominant vessel and is widely patent. 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 There is reconstitution of the above-knee popliteal artery through profundofemoral collaterals. The below-knee popliteal artery is preserved with similar two-vessel runoff through the anterior tibial artery and peroneal artery. In similar fashion the posterior tibial artery can be seen at its origin but is small and very underfilled and cannot be seen into the ankle or foot. Next our 5 [place]an sheath was exchanged for a 6 [place]an 45 cm destination sheath which was positioned into the right common femoral artery. Ultimately I gained access to the right superficial femoral artery with wire access. The patient was heparinized per weight-based protocol. Next using wiring catheter techniques I was able to navigate the chronically occluded segment of right superficial femoral artery and confirmed true lumen access into the right below- knee popliteal artery. Following this the entire segment of the above-knee popliteal artery and superficial femoral artery was balloon angioplastied using a 3.5 mm balloon. Completion angiogram revealed improved flow through this segment. Next the entire segment was treated using a 4 mm impact Admiral drug- eluting balloon. The balloon was inflated to nominal pressure and 2 separate balloons were used for this treatment area. A total of 3 minutes of inflation time was performed. Completion angiogram revealed brisk flow through the superficial femoral artery with two-vessel runoff as before. Satisfied with the result our wire and her catheter were withdrawn into the left iliac system. I confirmed that the left femoral access site was safe for closure. A Star close device was inserted and deployed successfully. The patient had excellent hemostasis at the access site and was transferred to the post catheterization area in stable condition. Keri Glasgow DO, KERI GORDON DO January 07, 2022 13:33
--- NOTE | 2022-01-07 13:35 | DISCH ---
DISCHARGE INSTRUCTIONS Condition on Discharge Condition on Discharge: Stable Activity After Discharge Activity Instructions for Disc: Activity as tolerated Lifting Instructions after Dis: No heavy lifting, No pulling or pushing, Do not lift >10 pounds Exercise Instruction after Dis: Walk 15 min, 3 x per day, Progress as tolerated Driving Instructions after Dis: Do not drive Weight Bearing Status after Di: As tolerated Diet after Discharge Diet after Discharge: Cardiac, Diabetic No Calorie Level Diet Texture: Regular Liquid Texture: Thin Liquid Swallowing Supervision: None needed Wound Incision Care Wound/Incision Care: Keep wound/cast CDI, Change dressing Checks after Discharge Checks after discharge: Check blood press - daily, Check blood sugar, ac/hs, Check your Temp as needed Follow-Up Follow up with: Vascular surgery office will call you with follow up information. Follow Up With: Call if you do not hear from us in a couple weeks. [phone] Treatment/Equipment after DC Adaptive Equipment Issued: None Discharge Respiratory Equipmen: Oxygen, Nebulizer LEATHA CHILDS January 07, 2022 13:35
--- NOTE | 2022-01-07 14:54 | NUR ---
RN confirmed that Xarelto and Tramadol called in by Annelise LE to patient's preferred pharmacy. Spoke with pharmacist. Patient aware, will pick up operator.
--- NOTE | 2022-01-07 17:07 | NUR ---
Discharge Note: ESPERANZA THOMAS Discharge instructions and discharge home medications reviewed with Patient and a copy given. All questions have been answered and understanding verbalized. The following instructions and handouts were given: Post moderate sedation, discharge medications, and groin site care. Discontinued IV Patient discharged to home
== END 2022-01-07 17:08 | disposition home or self-care (01) ==
LOC: CCL 09:37
PROVIDERS: ATTEND Surgery
DX: I73.9 Peripheral vascular disease, unspecified (principal); I10 Essential (primary) hypertension; I25.10 Atherosclerotic heart disease of native coronary artery without angina pectoris; E11.9 Type 2 diabetes mellitus without complications; E66.01 Morbid (severe) obesity due to excess calories; E78.5 Hyperlipidemia, unspecified; K21.9 Gastro-esophageal reflux disease without esophagitis; M19.90 Unspecified osteoarthritis, unspecified site; F41.9 Anxiety disorder, unspecified; F32.9 Major depressive disorder, single episode, unspecified; Z87.891 Personal history of nicotine dependence; Z79.82 Long term (current) use of aspirin; Z79.84 Long term (current) use of oral hypoglycemic drugs; Z79.899 Other long term (current) drug therapy; Z98.890 Other specified postprocedural states
CPT/HCPCS: 36415; 37224; 75625; 75716; 76937; 80048; 85025; 85610; 99152; 99153; C1725; C1760; C1769; C1887; C1894; C2623; J1644; J2250; J3010; J3490; J7050; Q9967; G0269; J7030